=== PATIENT | male | born 1950 | race Caucasian/White ===

== ENCOUNTER → 2017-04-24 08:04 | Outpatient (CLI) | payer MEDICARE, SELFPAY ==
[2017-04-24 10:29] LABS: Hematocrit 55.5 % (40-54); Hemoglobin 18.6 g/dl (13.0-16.5); Mean Corp Hgb Conc 33.5 g/gl (32-36); Mean Corpuscular Hgb 30.6 pg (27.0-32.0); Mean Corpuscular Volume 91.4 fL (80-94); Mean Platelet Vol. 10.3 fl (6.2-12.0); Platelet Count 161 K/mm3 (150-450); RBC Distribution Width SD 42.8 fl (35.1-43.9); Red Blood Count 6.07 M/mm3 (4.6-6.2)
[2017-04-24 10:34] LABS: Scan Indicated on CBC? Y/N NO
[2017-04-24 10:43] LABS: ALB/GLOB Ratio 1.4 RATIO (0.9-2.4); AST(SGOT) 40 U/L (15-37); Alanine Aminotransfer ALT/SGPT 83 U/L (16-61); Albumin, Serum 4.2 g/dL (3.2-5.0); Alkaline Phosphatase 56 U/L (45-117); Anion Gap 10 (5-15); BUN 8 mg/dL (7-18); BUN/Creat Ratio 8.4 RATIO (10-20); Calcium,Total 9.1 mg/dL (8.5-10.1); Chloride 102 mmol/L (98-107); Cholesterol 191 mg/dL (200); Creatinine, Serum 0.96 mg/dL (0.70-1.30); EST Glomerular Filtration Rate 84 mL/min (>60); Est Glom Filt Rate - Afr Amer 102 mL/min (>60); Globulin 3.1 g/dL (2.2-4.2); Glucose 108 mg/dL (74-106); High Density Lipoprotein 55 mg/dL; PSA,Total - Annual Screen 3.13 ng/mL (0.00-4.00); Protein, Total 7.3 g/dL (6.4-8.2); Sodium Level 140 mmol/L (136-145); Triglycerides 68 mg/dL; Very Low Density Lipoprotein 14 mg/dL (5-40)
== END ==
PROVIDERS: Family Provider Family Medicine; PCP Family Medicine; Visit Provider Family Medicine
DX: E34.9 Endocrine disorder, unspecified (principal); Z12.5 Encounter for screening for malignant neoplasm of prostate
CPT/HCPCS: 36415; 80053; 80061; 84153; 84403; 85027; G0103

== ENCOUNTER → 2017-07-16 12:03 | Outpatient (CLI) | payer MEDICARE, SELFPAY ==
[2017-07-16 14:37] LABS: AST(SGOT) 37 U/L (15-37); Alanine Aminotransfer ALT/SGPT 53 U/L (16-61); Albumin, Serum 4.3 g/dL (3.2-5.0); Alkaline Phosphatase 58 U/L (45-117); Bilirubin, Direct 0.22 mg/dL (0.00-0.30); Globulin 2.9 g/dL (2.2-4.2); Protein, Total 7.2 g/dL (6.4-8.2)
== END ==
PROVIDERS: Family Provider Family Medicine; PCP Family Medicine; Visit Provider Family Medicine
DX: R74.0 Nonspecific elevation of levels of transaminase and lactic acid dehydrogenase [LDH] (principal); E34.9 Endocrine disorder, unspecified
CPT/HCPCS: 36415; 80076; 84403

== ENCOUNTER → 2017-12-04 08:23 | Outpatient (CLI) | payer MEDICARE, SELFPAY ==
[2017-12-04 10:48] LABS: ALB/GLOB Ratio 1.2 RATIO (0.9-2.4); AST(SGOT) 29 U/L (15-37); Alanine Aminotransfer ALT/SGPT 55 U/L (16-61); Albumin, Serum 4.2 g/dL (3.2-5.0); Alkaline Phosphatase 51 U/L (45-117); Anion Gap 10 (5-15); BUN 10 mg/dL (7-18); BUN/Creat Ratio 8.9 RATIO (10-20); Calcium,Total 8.7 mg/dL (8.5-10.1); Chloride 100 mmol/L (98-107); Cholesterol 185 mg/dL (200); Creatinine, Serum 1.12 mg/dL (0.70-1.30); EST Glomerular Filtration Rate 70 mL/min (>60); Est Glom Filt Rate - Afr Amer 85 mL/min (>60); Globulin 3.4 g/dL (2.2-4.2); Glucose 104 mg/dL (74-106); High Density Lipoprotein 61 mg/dL; Potassium 4.1 mmol/L (3.5-5.1); Protein, Total 7.6 g/dL (6.4-8.2); Sodium Level 136 mmol/L (136-145); Triglycerides 84 mg/dL; Very Low Density Lipoprotein 17 mg/dL (5-40)
== END ==
PROVIDERS: Family Provider Family Medicine; PCP Family Medicine; Visit Provider Family Medicine
DX: E34.9 Endocrine disorder, unspecified (principal)
CPT/HCPCS: 36415; 80053; 80061; 84403

== ENCOUNTER → 2018-02-24 09:54 | Outpatient (CLI) | payer MEDICARE, SELFPAY ==
[2018-02-24 12:47] LABS: Anion Gap 7 (5-15); BUN 10 mg/dL (7-18); BUN/Creat Ratio 9.2 RATIO (10-20); Calcium,Total 9.2 mg/dL (8.5-10.1); Chloride 99 mmol/L (98-107); Creatinine, Serum 1.09 mg/dL (0.70-1.30); EST Glomerular Filtration Rate 72 mL/min (>60); Est Glom Filt Rate - Afr Amer 87 mL/min (>60); Glucose 107 mg/dL (74-106); Sodium Level 140 mmol/L (136-145)
--- OUTSIDE RECORDS SUMMARY | 2018-04-12 10:02 | XMS RPT_ITS ---
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 criteria. Please note revised GLUCOSE reference range effective 2017. LAB L501.1000 7-18 mg/dL Normal BUN 10 LAB L501.1100 0.70-1.30 mg/dL Normal CREAT,SERUM 1.09 Result Comment: The validity of the calculated GFR AND GFRAA in patients over 70 years has not been determined. Clinical correlation is essential. LAB L501.1110 >60 mL/min Normal EST GFR 72 Result Comment: Non- GFR Calc LAB L501.1115 >60 mL/min Normal EST GFR - AA 87 Result Comment: GFR Calc LAB L501.1300 10-20 RATIO Low BUN/CRE 9.2 LAB L501.2200 8.5-10.1 mg/dL Normal CA 9.2 LAB L501.5300 136-145 mmol/L Normal NA 140 LAB L501.5600 3.5-5.1 mmol/L Normal K 4.0 LAB L501.5900 98-107 mmol/L Normal CL 99 LAB L501.6100 21.0-32.0 mmol/L High CO2 34.0 LAB L501.6200 5-15 Normal GAP 7 Performed By: #### L500.2500 #### [facility] [address] [place], [address] COMPREHENSIVE METABOLIC Collected: 12/04/2017 Status: F Source: [facility] 8:25 AM [facility] REPOSITORY Order Comment: Order Date: 10/08/17 Order Info: [id number] - CMP Order Info: 08933-5 - LIPID TYPE CODE TESTS RESULT OUT OF RANGE REFERENCE UNITS LAB L501.0100 74-106 mg/dL Normal GLU 104 Result Comment: Fasting Glucose result from 100 to 125 mg/dL suggests IMPAIRED HOMEOSTASIS per A.D.A. criteria. Please note revised GLUCOSE reference range effective 2017. LAB L501.1000 7-18 mg/dL Normal BUN 10 LAB L501.1100 0.70-1.30 mg/dL Normal CREAT,SERUM 1.12 Result Comment: The validity of the calculated GFR AND GFRAA in patients over 70 years has not been determined. Clinical correlation is essential. LAB L501.1110 >60 mL/min Normal EST GFR 70 Result Comment: Non- GFR Calc LAB L501.1115 >60 mL/min Normal EST GFR - AA 85 Result Comment: GFR Calc LAB L501.1300 10-20 RATIO Low BUN/CRE 8.9 LAB L501.1500 6.4-8.2 g/dL Normal T PROT 7.6 LAB L501.1800 3.2-5.0 g/dL Normal ALB 4.2 LAB L501.1950 2.2-4.2 g/dL Normal GLOB 3.4 LAB L501.2000 0.9-2.4 RATIO Normal A/G 1.2 LAB L501.2200 8.5-10.1 mg/dL Normal CA 8.7 LAB L501.4100 15-37 U/L Normal AST 29 Result Comment: Slight Hemolysis, Result may be falsely increased. LAB L501.4305 45-117 U/L Normal ALK P 51 LAB L501.4405 16-61 U/L Normal ALT 55 LAB L501.4600 0.20-1.00 mg/dL High T BILI 1.10 LAB L501.5300 136-145 mmol/L Normal NA 136 LAB L501.5600 3.5-5.1 mmol/L Normal K 4.1 Result Comment: Slight Hemolysis, Result may be falsely increased. LAB L501.5900 98-107 mmol/L Normal CL 100 LAB L501.6100 21.0-32.0 mmol/L Normal CO2 26.0 LAB L501.6200 5-15 Normal GAP 10 Performed By: #### L500.4050, L500.4100, L509.3000 #### [facility] [address] [place], [address] LIPID PROFILE Collected: 12/04/2017 Status: F Source: [place] 8:25 AM [facility] REPOSITORY Order Comment: Order Date: 10/08/17 Order Info: [id number] - CMP Order Info: [id number] - LIPID TYPE CODE TESTS RESULT OUT OF RANGE REFERENCE UNITS LAB L501.4900 200 mg/dL Normal CHOL 185 Result Comment: <200 mg/dL Desirable 200-240 mg/dL Borderline >240 mg/dL High Risk LAB L501.5000 mg/dL Normal TRIG 84 Result Comment: The drugs N-Acetylcysteine and Metamizole may falsely depress this assay. Serum Triglycerides Reference Interval Normal <150 mg/dL Borderline high 150 - 199 mg/dL High 200 - 499 mg/dL Very High > or = 500 mg/dL LAB L501.6400 mg/dL Normal HDL 61 Result Comment: The drugs N-Acetylcysteine and Metamizole may falsely depress this assay. Reference Range HDL <40 mg/dL Low HDL Cholesterol HDL >or= 60 mg/dL High HDL Cholesterol LAB L501.6500 0-130 mg/dL Normal LDL 107 LAB L501.6600 5-40 mg/dL Normal VLDL 17 Performed By: #### L500.4050, L500.4100, L509.3000 #### [facility] [address] [facility] [place], [address] TESTOSTERONE, SERUM TOTAL Collected: 12/04/2017 Status: F Source: [place] 8:25 AM [facility] REPOSITORY Order Comment: Order Date: 10/08/17 Order Info: 2986-8 - PRESTON TYPE CODE TESTS RESULT OUT OF REFERENCE UNITS RANGE LAB L509.3000 ng/dL Testosterone Normal 336.43 Result Comment: NORMAL REFERENCE RANGES MALE AGE <50 123.06 - 813.86 ng/dL MALE AGE >50 89.98 - 780.10 ng/dL FEMALE PREMENOPAUSE AGE 21 - 60 9.01 - 47.94 ng/dL FEMALE POSTMENOPAUSE AGE 45 - 89 <7.00 - 45.62 ng/dL REFERENCE RANGE AND METHODOLOGY CHANGED 03/05/2017 Performed By: #### L500.4050, L500.4100, L509.3000 #### [facility] [address] [facility] [place], [address] LIVER PROFILE Collected: 07/16/2017 Status: F Source: [place] 12:04 PM [facility] REPOSITORY Order Comment: Order Date: 05/21/17 Order Info: 0788-1 - LIVER TYPE CODE TESTS RESULT OUT OF RANGE REFERENCE UNITS LAB L501.1500 6.4-8.2 g/dL Normal T PROT 7.2 LAB L501.1800 3.2-5.0 g/dL Normal ALB 4.3 LAB L501.1950 2.2-4.2 g/dL Normal GLOB 2.9 LAB L501.4100 15-37 U/L Normal AST 37 Result Comment: Slight Hemolysis, Result may be falsely increased. LAB L501.4305 45-117 U/L Normal ALK P 58 LAB L501.4405 16-61 U/L Normal ALT 53 LAB L501.4600 0.20-1.00 mg/dL Normal T BILI 1.00 LAB L501.4700 0.00-0.30 mg/dL Normal D BILI 0.22 Performed By: #### L500.3400, L509.3000 #### [facility] [address] [place], [address] TESTOSTERONE, SERUM TOTAL Collected: 07/16/2017 Status: F Source: [place] 12:04 PM [facility] REPOSITORY Order Comment: Order Date: 05/21/17 Order Info: 2986-8 - PRESTON TYPE CODE TESTS RESULT OUT OF REFERENCE UNITS RANGE LAB L509.3000 ng/dL Testosterone Normal 556.53 Result Comment: NORMAL REFERENCE RANGES MALE AGE <50 123.06 - 813.86 ng/dL MALE AGE >50 89.98 - 780.10 ng/dL FEMALE PREMENOPAUSE AGE 21 - 60 9.01 - 47.94 ng/dL FEMALE POSTMENOPAUSE AGE 45 - 89 <7.00 - 45.62 ng/dL REFERENCE RANGE AND METHODOLOGY CHANGED 03/05/2017 Performed By: #### L500.3400, L509.3000 #### [facility] [address] [place], [address] CBC-COMPLETE BLOOD CNT Collected: 04/24/2017 Status: F Source: [place] NO DIFF 8:18 AM [facility] REPOSITORY Order Comment: Order Date: 10/09/16 Order Info: [id number] - CBCCRITICAL VALUE VERIFIED. CALLED TO ASHLEIGH 04/24/17 1033 Savi Fish. RESULTS READ BACK BY ASHLEIGH . TYPE CODE TESTS RESULT OUT OF RANGE REFERENCE UNITS LAB L100.1000 4.4-11.0 K/mm3 Normal WBC 7.0 LAB L100.1200 4.6-6.2 M/mm3 Normal RBC 6.07 LAB L100.1300 13.0-16.5 g/dl High alert HGB 18.6 LAB L100.1400 40-54 % High HCT 55.5 LAB L100.1500 80-94 fL Normal MCV 91.4 LAB L100.1600 27.0-32.0 pg Normal MCH 30.6 LAB L100.1700 32-36 g/gl Normal MCHC 33.5 LAB L100.1810 11.6-14.6 % Normal RDW CV 13.0 LAB L100.1820 35.1-43.9 fl Normal RDW SD 42.8 LAB L100.1900 150-450 K/mm3 Normal PLT 161 LAB L100.2000 6.2-12.0 fl Normal MPV 10.3 Performed By: #### L100.0500, L500.4050, L500.4100, L501.9910, L509.3000 #### [facility] [address] [place], [address] COMPREHENSIVE METABOLIC Collected: 04/24/2017 Status: F [facility] REPOSITORY Order Comment: Order Date: 10/09/16 Order Info: [id number] - CMP Order Info: [id number] - LIPID Order Info: 2857-1 - PSA TYPE CODE TESTS RESULT OUT OF RANGE REFERENCE UNITS LAB L501.0100 74-106 mg/dL High GLU 108 Result Comment: Please note revised GLUCOSE reference range effective 2017. LAB L501.1000 7-18 mg/dL Normal BUN 8 LAB L501.1100 0.70-1.30 mg/dL Normal CREAT,SERUM 0.96 Result Comment: The validity of the calculated GFR AND GFRAA in patients over 70 years has not been determined. Clinical correlation is essential. LAB L501.1110 >60 mL/min Normal EST GFR 84 Result Comment: Non- GFR Calc LAB L501.1115 >60 mL/min Normal EST GFR - AA 102 Result Comment: GFR Calc LAB L501.1300 10-20 RATIO Low BUN/CRE 8.4 LAB L501.1500 6.4-8.2 g/dL Normal T PROT 7.3 LAB L501.1800 3.2-5.0 g/dL Normal ALB 4.2 LAB L501.1950 2.2-4.2 g/dL Normal GLOB 3.1 LAB L501.2000 0.9-2.4 RATIO Normal A/G 1.4 LAB L501.2200 8.5-10.1 mg/dL Normal CA 9.1 LAB L501.4100 15-37 U/L High AST 40 LAB L501.4305 45-117 U/L Normal ALK P 56 LAB L501.4405 16-61 U/L High ALT 83 Result Comment: Please note revised ALT reference range effective 2017. LAB L501.4600 0.20-1.00 mg/dL High T BILI 1.10 LAB L501.5300 136-145 mmol/L Normal NA 140 LAB L501.5600 3.5-5.1 mmol/L Normal K 4.0 LAB L501.5900 98-107 mmol/L Normal CL 102 LAB L501.6100 21.0-32.0 mmol/L Normal CO2 28.0 LAB L501.6200 5-15 Normal GAP 10 Performed By: #### L100.0500, L500.4050, L500.4100, L501.9910, L509.3000 #### [facility] [address] [place], [address] LIPID PROFILE Collected: 04/24/2017 Status: F Source: [place] 8:18 AM [facility] REPOSITORY Order Comment: Order Date: 10/09/16 Order Info: [id number] - CMP Order Info: [id number] - LIPID Order Info: 2857-1 - PSA TYPE CODE TESTS RESULT OUT OF RANGE REFERENCE UNITS LAB L501.4900 200 mg/dL Normal CHOL 191 Result Comment: <200 mg/dL Desirable 200-240 mg/dL Borderline >240 mg/dL High Risk LAB L501.5000 mg/dL Normal TRIG 68 Result Comment: The drugs N-Acetylcysteine and Metamizole may falsely depress this assay. Serum Triglycerides Reference Interval Normal <150 mg/dL Borderline high 150 - 199 mg/dL High 200 - 499 mg/dL Very High > or = 500 mg/dL LAB L501.6400 mg/dL Normal HDL 55 Result Comment: The drugs N-Acetylcysteine and Metamizole may falsely depress this assay. Reference Range HDL <40 mg/dL Low HDL Cholesterol HDL >or= 60 mg/dL High HDL Cholesterol LAB L501.6500 0-130 mg/dL Normal LDL 122 LAB L501.6600 5-40 mg/dL Normal VLDL 14 Performed By: #### L100.0500, L500.4050, L500.4100, L501.9910, L509.3000 #### [facility] [address] [place], [place], [address] PSA,TOTAL - ANNUAL Collected: 04/24/2017 Status: F Source: [place] SCREEN 8:18 AM [facility] REPOSITORY Order Comment: Order Date: 10/09/16 Order Info: [id number] - CMP Order Info: [id number] - LIPID Order Info: 2857-1 - PSA TYPE CODE TESTS RESULT OUT OF RANGE REFERENCE UNITS LAB L501.9910 0.00-4.00 ng/mL Normal PSA,TOT 3.13 SCREEN Result Comment: This test was performed using the TPSA assay method for the Pol[employer] chemistry system. Values obtained with different assay methods cannot be used interchangably. When changing PSA assays in the course of monitoring a patient, additional sequential testing should be carried out to confirm baseline values. Performed By: #### L100.0500, L500.4050, L500.4100, L501.9910, L509.3000 #### [facility] [address] [place], [address] TESTOSTERONE, SERUM TOTAL Collected: 04/24/2017 Status: F Source: [place] 8:18 AM [facility] REPOSITORY Order Comment: Order Date: 10/09/16 Order Info: 2986-8 - PRESTON TYPE CODE TESTS RESULT OUT OF REFERENCE UNITS RANGE LAB L509.3000 ng/dL Testosterone Normal 979.86 Result Comment: NORMAL REFERENCE RANGES MALE AGE <50 123.06 - 813.86 ng/dL MALE AGE >50 89.98 - 780.10 ng/dL FEMALE PREMENOPAUSE AGE 21 - 60 9.01 - 47.94 ng/dL FEMALE POSTMENOPAUSE AGE 45 - 89 <7.00 - 45.62 ng/dL REFERENCE RANGE AND METHODOLOGY CHANGED 03/05/2017 Performed By: #### L100.0500, L500.4050, L500.4100, L501.9910, L509.3000 #### [facility] [address] [place], [place], [address] ALLERGIES ALLERGIES No Allergies Records FoundENCOUNTERS ENCOUNTERS ADMIT/DISCHARGE ACCOUNT ADMITTING ENCOUNTER LOCATION SOURCE NUMBER CLASS 02/24/2018 [id number] Ambulatory [place] 5 [facility] ing:MFPLAB Repository 12/04/2017 [id number] Ambulatory [facility] 8 [facility] ing:MFPLAB Repository 07/16/[id number] ing:MFPLAB Repository 04/24/[id number] ing:MTLAB Repository PAYERS PAYERS ENCOUNTER GUARANTOR PAYER SUBSCRIBER SOURCE 02/24/2018 CELY W Primary CELY W [place] [id number] Insurance:[employer] CARE EIKLEBERRYDOB: Community [address], MEDICAREPolicy [id number] [address]Ccn: Number: Repository [id number] (HP) Date:9590-29-28[address] [place] [address] 66705QL: 02/24/2018 Secondary NOT GIVENUNK [place] Insurance:SELF PAY [facility] Number: Effective Repository Date:2018-02-24 12/04/2017 CELY W Primary CELY W [place] [id number] Insurance:[employer] CARE EIKLEBERRYDOB: Community [address], MEDICAREPolicy [id number] [facility] [place] [address]Cte: Number: Repository [id number] (HP) Date:3611-53-[address] [place] [address] 27286DT: 12/04/2017 Secondary NOT GIVENUNK [place] Insurance:SELF PAY [facility] Number: Effective Repository Date:2017-12-04 07/16/2017 CELY W Primary CELY W [place] [id number] Insurance:[employer] CARE EIKLEBERRYDOB: Community [address], MEDICAREPolicy [id number] [facility] Medical Center [address]Gnb: Number: Repository [id number] (HP) Date:7990-79-91[address] [place] [address]15[address]SP: 07/16/2017 Secondary NOT GIVENUNK [place] Insurance:SELF PAY [facility] Number: Effective Repository Date:2017-07-16 04/24/2017 CELY W Primary CELY W [place] [id number] Insurance:[facility]: [facility] WILL KAREN MEDICAREPolrobina [id number] [facility] Medical Center [address]Jkw: Number: Repository [id number] (HP) Date:8082-99-12[address] [place] [address] 57[address]RC: 04/24/2017 Secondary NOT GIVENUNK [place] Insurance:SELF PAY [facility] Number: Effective Repository Date:2017-04-24
== END ==
PROVIDERS: Family Provider Family Medicine; PCP Family Medicine; Visit Provider Family Medicine
DX: I10 Essential (primary) hypertension (principal)
CPT/HCPCS: 36415; 80048

== ENCOUNTER → 2018-04-22 08:07 | Outpatient (CLI) | payer MEDICARE, SELFPAY ==
[2018-04-22 11:11] LABS: ALB/GLOB Ratio 1.6 RATIO (0.9-2.4); AST(SGOT) 33 U/L (15-37); Alanine Aminotransfer ALT/SGPT 55 U/L (16-61); Albumin, Serum 4.4 g/dL (3.2-5.0); Alkaline Phosphatase 53 U/L (45-117); Anion Gap 10 (5-15); BUN 8 mg/dL (7-18); BUN/Creat Ratio 7.8 RATIO (10-20); Calcium,Total 8.8 mg/dL (8.5-10.1); Chloride 101 mmol/L (98-107); Cholesterol 187 mg/dL (200); Creatinine, Serum 1.03 mg/dL (0.70-1.30); EST Glomerular Filtration Rate 77 mL/min (>60); Est Glom Filt Rate - Afr Amer 93 mL/min (>60); Globulin 2.7 g/dL (2.2-4.2); Glucose 106 mg/dL (74-106); High Density Lipoprotein 49 mg/dL; PSA,Total - Annual Screen 2.96 ng/mL (0.00-4.00); Protein, Total 7.1 g/dL (6.4-8.2); Sodium Level 140 mmol/L (136-145); Triglycerides 94 mg/dL; Very Low Density Lipoprotein 19 mg/dL (5-40)
== END ==
PROVIDERS: Family Provider Family Medicine; PCP Family Medicine; Visit Provider Family Medicine
DX: I10 Essential (primary) hypertension (principal); E34.9 Endocrine disorder, unspecified; Z12.5 Encounter for screening for malignant neoplasm of prostate
CPT/HCPCS: 36415; 80053; 80061; 84153; 84403; G0103

== ENCOUNTER → 2018-10-02 | Outpatient (CLI) | payer MEDICARE, SELFPAY ==
[2018-10-02 10:17] LABS: ALB/GLOB Ratio 1.6 RATIO (0.9-2.4); AST(SGOT) 25 U/L (15-37); Alanine Aminotransfer ALT/SGPT 41 U/L (16-61); Albumin, Serum 4.1 g/dL (3.2-5.0); Alkaline Phosphatase 53 U/L (45-117); Anion Gap 8 (5-15); BUN 9 mg/dL (7-18); BUN/Creat Ratio 10.1 RATIO (10-20); Calcium,Total 9.2 mg/dL (8.5-10.1); Chloride 100 mmol/L (98-107); Cholesterol 175 mg/dL (200); Creatinine, Serum 0.89 mg/dL (0.70-1.30); EST Glomerular Filtration Rate 91 mL/min (>60); Est Glom Filt Rate - Afr Amer 110 mL/min (>60); Globulin 2.6 g/dL (2.2-4.2); Glucose 94 mg/dL (74-106); High Density Lipoprotein 52 mg/dL; Potassium 3.8 mmol/L (3.5-5.1); Protein, Total 6.7 g/dL (6.4-8.2); Sodium Level 140 mmol/L (136-145); Triglycerides 87 mg/dL; Very Low Density Lipoprotein 17 mg/dL (5-40)
== END | disposition home or self-care (01) ==
LOC: MFPLAB 08:05
PROVIDERS: Family Provider Family Medicine; PCP Family Medicine; Referring Provider Family Medicine; Visit Provider Family Medicine
DX: Z00.00 Encounter for general adult medical examination without abnormal findings (principal); E34.9 Endocrine disorder, unspecified
CPT/HCPCS: 36415; 80053; 80061; 84403

== ENCOUNTER → 2019-07-16 | Outpatient (CLI) | payer MEDICARE, SELFPAY ==
[2019-07-16 10:42] LABS: ALB/GLOB Ratio 1.4 RATIO (0.9-2.4); AST(SGOT) 18 U/L (15-37); Alanine Aminotransfer ALT/SGPT 31 U/L (16-61); Albumin, Serum 4.2 g/dL (3.2-5.0); Alkaline Phosphatase 47 U/L (45-117); Anion Gap 8 (5-15); BUN 10 mg/dL (7-18); BUN/Creat Ratio 10.4 RATIO (10-20); Calcium,Total 8.9 mg/dL (8.5-10.1); Chloride 102 mmol/L (98-107); Cholesterol 175 mg/dL (200); Creatinine, Serum 0.96 mg/dL (0.70-1.30); EST Glomerular Filtration Rate 83 mL/min (>60); Est Glom Filt Rate - Afr Amer 100 mL/min (>60); Glucose 101 mg/dL (74-106); High Density Lipoprotein 60 mg/dL; PSA,Total- Diagnostic 2.58 ng/mL (0.0-4.0); Potassium 3.6 mmol/L (3.5-5.1); Protein, Total 7.2 g/dL (6.4-8.2); Sodium Level 138 mmol/L (136-145); Triglycerides 73 mg/dL; Uric Acid 8.6 mg/dL (3.5-7.2); Very Low Density Lipoprotein 15 mg/dL (5-40)
== END | disposition home or self-care (01) ==
PROVIDERS: PCP Family Medicine; Visit Provider Family Medicine
DX: E34.9 Endocrine disorder, unspecified (principal); M10.9 Gout, unspecified; I10 Essential (primary) hypertension; N40.0 Benign prostatic hyperplasia without lower urinary tract symptoms
CPT/HCPCS: 36415; 80053; 80061; 84153; 84403; 84550

== ENCOUNTER → 2019-07-28 | Outpatient (CLI) | payer MEDICARE, SELFPAY ==
[2019-07-28 16:32] LABS: Uric Acid 7.2 mg/dL (3.5-7.2)
== END | disposition home or self-care (01) ==
LOC: MFPLAB 13:52
PROVIDERS: PCP Family Medicine; Visit Provider Family Medicine
DX: M10.9 Gout, unspecified (principal)
CPT/HCPCS: 36415; 84550

== ENCOUNTER → 2019-08-25 | Outpatient (CLI) | payer MEDICARE, SELFPAY ==
[2019-08-25 18:29] LABS: Uric Acid 5.5 mg/dL (3.5-7.2)
== END | disposition home or self-care (01) ==
LOC: MFPLAB 13:50
PROVIDERS: PCP Family Medicine; Referring Provider Family Medicine; Visit Provider Family Medicine
DX: M10.9 Gout, unspecified (principal)
CPT/HCPCS: 36415; 84550

== ENCOUNTER → 2019-09-15 | Outpatient (CLI) | payer MEDICARE, SELFPAY ==
--- NOTE | 2019-09-15 12:44 | RAD_ITS ---
STUDY: X-RAY - RIGHT WRIST REASON FOR EXAM: Male, 69 years old. PAIN AND LOTS OF SWELLING IN RIGHT WRIST. NO KNOWN INJURY. PATIENT STATES BROKE RIGHT WRIST/RIGHT FOREARM 2 TIMES A TEENAGER. TECHNIQUE: 3 view(s) of the wrist were obtained. COMPARISON: None. FINDINGS: Old avulsion fracture of the ulnar styloid. There is degenerative arthrosis of the radiocarpal articulation. There is degenerative arthrosis of the distal radioulnar articulation. There is evidence of a dorsal subluxation of the distal radial ulnar joint most likely secondary to old injury. Normal carpal bones. Normal carpal articulations. Normal carpometacarpal articulation of the thumb. Normal second through fifth carpometacarpal articulations. Normal visualized metacarpal bones. The soft tissue structures are unremarkable. RAD/Wrist min 3 Views IMPRESSION: Degenerative changes at the level of the wrist joint with dorsal subluxation of the distal radial ulnar joint and old avulsion fracture of the ulnar styloid. Electronically Signed: Leander Cordova, at 13:35 EDT , Service support ,
== END | disposition home or self-care (01) ==
LOC: MTRAD 12:39
PROVIDERS: PCP Family Medicine; Referring Provider Family Medicine; Visit Provider Family Medicine
DX: M25.431 Effusion, right wrist (principal)
CPT/HCPCS: 73110

== ENCOUNTER → 2019-11-01 | Outpatient (CLI) | payer MEDICARE, SELFPAY ==
[2019-11-01 18:08] LABS: Absolute Lymphocyte Count 0.71 X10^3/uL (0.83-4.51); Absolute Neutrophil Count 9.1 X10^3/uL (2.0-7.7); Basophil# 0.01 X10^3/uL; Basophil% 0.1 % (0-1); Lymphocyte # 0.71 X10^3/ul (4.0); Lymphocyte % 7.1 % (19-41); Mean Corp Hgb Conc 32.7 g/dL (32-36); Mean Corpuscular Volume 91.7 fL (80-94); Mean Platelet Vol. 10.1 fl (6.2-12.0); Monocyte# 0.12 X10^3/uL; Monocyte% 1.2 % (0-10); NRBC Flagged by Analyzer 0 % (0-5); Neutrophil # 9.12 X10^3/uL (2.7-7.7); Platelet Count 205 K/mm3 (150-450); RBC Distribution Width CV 12.9 % (11.6-14.6); RBC Distribution Width SD 43.8 fl (35.1-43.9); Red Blood Count 5.67 M/mm3 (4.6-6.2)
[2019-11-01 18:22] LABS: Anion Gap 7 (5-15); BUN 13 mg/dL (7-18); BUN/Creat Ratio 12.9 RATIO (10-20); Chloride 105 mmol/L (98-107); Creatinine, Serum 1.01 mg/dL (0.70-1.30); EST Glomerular Filtration Rate 78 mL/min (>60); Est Glom Filt Rate - Afr Amer 95 mL/min (>60); Glucose 169 mg/dL (74-106); Potassium 3.9 mmol/L (3.5-5.1); Sodium Level 138 mmol/L (136-145)
== END | disposition home or self-care (01) ==
LOC: MFPLAB 14:33
PROVIDERS: Family Medicine; PCP Family Medicine; Referring Provider Family Medicine; Visit Provider Family Medicine
DX: M10.9 Gout, unspecified (principal)
CPT/HCPCS: 36415; 80048; 84550; 85025

== ENCOUNTER → 2020-01-31 16:28 | Outpatient (CLI) | payer MEDICARE, SELFPAY | PROVIDERS: PCP Family Medicine; Visit Provider Family Medicine | DX: Z20.828 Contact with and (suspected) exposure to other viral communicable diseases (principal) | CPT/HCPCS: 87635; U0003 ==

== ENCOUNTER → 2020-02-04 08:10 | Outpatient (CLI) | payer MEDICARE, SELFPAY ==
[2020-02-04 10:34] LABS: Hemoglobin A1c 5.2 % (3.8-5.6)
[2020-02-04 10:49] LABS: ALB/GLOB Ratio 1.7 RATIO (0.9-2.4); AST(SGOT) 15 U/L (15-37); Alanine Aminotransfer ALT/SGPT 31 U/L (16-61); Albumin, Serum 4.3 g/dL (3.2-5.0); Alkaline Phosphatase 45 U/L (45-117); Anion Gap 3 (5-15); BUN 15 mg/dL (7-18); BUN/Creat Ratio 14.6 RATIO (10-20); Calcium,Total 8.8 mg/dL (8.5-10.1); Chloride 103 mmol/L (98-107); Cholesterol 161 mg/dL (200); Creatinine, Serum 1.03 mg/dL (0.70-1.30); EST Glomerular Filtration Rate 76 mL/min (>60); Est Glom Filt Rate - Afr Amer 92 mL/min (>60); Globulin 2.6 g/dL (2.2-4.2); Glucose 102 mg/dL (74-106); High Density Lipoprotein 60 mg/dL; Potassium 3.9 mmol/L (3.5-5.1); Protein, Total 6.9 g/dL (6.4-8.2); Sodium Level 137 mmol/L (136-145); Triglycerides 57 mg/dL; Very Low Density Lipoprotein 11 mg/dL (5-40)
== END ==
PROVIDERS: PCP Family Medicine; Visit Provider Family Medicine
DX: I10 Essential (primary) hypertension (principal); R73.02 Impaired glucose tolerance (oral)
CPT/HCPCS: 36415; 80053; 80061; 83036

== ENCOUNTER → 2020-05-17 14:32 | Outpatient (CLI) | payer MEDICARE, SELFPAY ==
[2020-05-17 18:24] LABS: ALB/GLOB Ratio 1.5 RATIO (0.9-2.4); AST(SGOT) 25 U/L (15-37); Alanine Aminotransfer ALT/SGPT 46 U/L (16-61); Albumin, Serum 4.1 g/dL (3.2-5.0); Alkaline Phosphatase 51 U/L (45-117); Anion Gap 7 (5-15); BUN 18 mg/dL (7-18); BUN/Creat Ratio 21.6 RATIO (10-20); Calcium,Total 8.9 mg/dL (8.5-10.1); Chloride 104 mmol/L (98-107); Creatinine, Serum 0.84 mg/dL (0.70-1.30); EST Glomerular Filtration Rate 97 mL/min (>60); Est Glom Filt Rate - Afr Amer 118 mL/min (>60); Globulin 2.7 g/dL (2.2-4.2); Glucose 112 mg/dL (74-106); PSA,Total - Annual Screen 1.32 ng/mL (0.00-4.00); Potassium 3.6 mmol/L (3.5-5.1); Protein, Total 6.8 g/dL (6.4-8.2); Sodium Level 138 mmol/L (136-145); Uric Acid 4.8 mg/dL (3.5-7.2)
== END ==
PROVIDERS: PCP Family Medicine; Referring Provider Family Medicine; Visit Provider Family Medicine
DX: E34.9 Endocrine disorder, unspecified (principal); M10.9 Gout, unspecified; I10 Essential (primary) hypertension; Z12.5 Encounter for screening for malignant neoplasm of prostate
CPT/HCPCS: 36415; 80053; 84153; 84403; 84550; G0103

== ENCOUNTER → 2020-05-31 14:14 | Outpatient (CLI) | payer MEDICARE, SELFPAY | PROVIDERS: PCP Family Medicine; Referring Provider Family Medicine; Visit Provider Family Medicine | DX: E34.9 Endocrine disorder, unspecified (principal) | CPT/HCPCS: 36415; 84403 ==

== ENCOUNTER → 2020-08-17 14:17 | Outpatient (CLI) | payer MEDICARE, SELFPAY | PROVIDERS: PCP Family Medicine; Referring Provider Family Medicine; Visit Provider Family Medicine | DX: U07.1 COVID-19 (principal) | CPT/HCPCS: 36415; 86769 ==

== ENCOUNTER → 2021-01-01 08:21 | Outpatient (CLI) | payer MEDICARE, SELFPAY ==
[2021-01-01 10:40] LABS: ALB/GLOB Ratio 1.4 RATIO (0.9-2.4); AST(SGOT) 14 U/L (15-37); Alanine Aminotransfer ALT/SGPT 26 U/L (16-61); Alkaline Phosphatase 37 U/L (45-117); Anion Gap 7 (5-15); BUN 11 mg/dL (7-18); BUN/Creat Ratio 11.9 RATIO (10-20); Calcium,Total 9.2 mg/dL (8.5-10.1); Chloride 102 mmol/L (98-107); Creatinine, Serum 0.92 mg/dL (0.70-1.30); EST Glomerular Filtration Rate 86 mL/min (>60); Est Glom Filt Rate - Afr Amer 104 mL/min (>60); Globulin 2.9 g/dL (2.2-4.2); Glucose 102 mg/dL (74-106); Potassium 4.1 mmol/L (3.5-5.1); Protein, Total 6.9 g/dL (6.4-8.2); Sodium Level 138 mmol/L (136-145)
== END ==
PROVIDERS: PCP Family Medicine; Visit Provider Family Medicine
DX: E34.9 Endocrine disorder, unspecified (principal)
CPT/HCPCS: 36415; 80053; 84403

== ENCOUNTER → 2021-07-31 | Outpatient (CLI) | payer MEDICARE, SELFPAY ==
[2021-07-31 09:57] LABS: Hematocrit 54.7 % (40-54); Hemoglobin 17.7 g/dL (13.0-16.5); Mean Corp Hgb Conc 32.4 g/dL (32-36); Mean Corpuscular Hgb 28.4 pg (27.0-32.0); Mean Corpuscular Volume 87.7 fL (80-94); Mean Platelet Vol. 10.2 fl (6.2-12.0); Platelet Count 179 K/mm3 (150-450); RBC Distribution Width CV 13.6 % (11.6-14.6); RBC Distribution Width SD 44.2 fl (35.1-43.9); Red Blood Count 6.24 M/mm3 (4.6-6.2); White Blood Count 6.8 K/mm3 (4.4-11.0)
[2021-07-31 10:10] LABS: ALB/GLOB Ratio 1.4 RATIO (0.9-2.4); AST(SGOT) 12 U/L (15-37); Alanine Aminotransfer ALT/SGPT 22 U/L (16-61); Albumin, Serum 3.9 g/dL (3.2-5.0); Alkaline Phosphatase 35 U/L (45-117); Anion Gap 5 (5-15); BUN 13 mg/dL (7-18); Calcium,Total 8.8 mg/dL (8.5-10.1); Chloride 106 mmol/L (98-107); Cholesterol 147 mg/dL (200); EST Glomerular Filtration Rate 79 mL/min (>60); Est Glom Filt Rate - Afr Amer 95 mL/min (>60); Globulin 2.7 g/dL (2.2-4.2); Glucose 105 mg/dL (74-106); High Density Lipoprotein 43 mg/dL; Protein, Total 6.6 g/dL (6.4-8.2); Sodium Level 140 mmol/L (136-145); Triglycerides 51 mg/dL; Uric Acid 6.3 mg/dL (3.5-7.2); Very Low Density Lipoprotein 10 mg/dL (5-40)
== END | disposition home or self-care (01) ==
LOC: MFPLAB 08:53
PROVIDERS: PCP Family Medicine; Visit Provider Family Medicine
DX: E34.9 Endocrine disorder, unspecified (principal); I10 Essential (primary) hypertension; N40.0 Benign prostatic hyperplasia without lower urinary tract symptoms; M10.9 Gout, unspecified
CPT/HCPCS: 36415; 80053; 80061; 84153; 84403; 84550; 85027

== ENCOUNTER → 2022-04-05 | Outpatient (CLI) | payer MEDICARE, SELFPAY ==
[2022-04-05 10:20] LABS: Absolute Lymphocyte Count 1.52 X10^3/uL (0.83-4.51); Absolute Neutrophil Count 4.8 X10^3/uL (2.0-7.7); Basophil# 0.03 X10^3/uL; Basophil% 0.4 % (0-1); Eosinophils% 1.4 % (0-5); Hematocrit 54.7 % (40-54); Hemoglobin 17.7 g/dL (13.0-16.5); Lymphocyte # 1.52 X10^3/ul (0.83-4.51); Lymphocyte % 21.8 % (19-41); Mean Corp Hgb Conc 32.4 g/dL (32-36); Mean Corpuscular Hgb 28.3 pg (27.0-32.0); Mean Corpuscular Volume 87.4 fL (80-94); Mean Platelet Vol. 9.8 fl (6.2-12.0); Monocyte# 0.52 X10^3/uL; Monocyte% 7.5 % (0-10); NRBC Flagged by Analyzer 0 % (0-5); Neutrophil # 4.77 X10^3/uL (2.7-7.7); Neutrophil % 68.5 % (47-70); Platelet Count 181 K/mm3 (150-450); RBC Distribution Width CV 13.7 % (11.6-14.6); RBC Distribution Width SD 43.6 fl (35.1-43.9); Red Blood Count 6.26 M/mm3 (4.6-6.2)
[2022-04-05 11:02] LABS: ALB/GLOB Ratio 1.7 RATIO (0.9-2.4); AST(SGOT) 15 U/L (15-37); Alanine Aminotransfer ALT/SGPT 31 U/L (16-61); Albumin, Serum 4.3 g/dL (3.2-5.0); Alkaline Phosphatase 38 U/L (45-117); Anion Gap 7 (5-15); BUN 13 mg/dL (7-18); BUN/Creat Ratio 15.8 RATIO (10-20); Chloride 103 mmol/L (98-107); Creatinine, Serum 0.82 mg/dL (0.70-1.30); EST Glomerular Filtration Rate 98 mL/min (>60); Est Glom Filt Rate - Afr Amer 119 mL/min (>60); Globulin 2.5 g/dL (2.2-4.2); Glucose 103 mg/dL (74-106); Protein, Total 6.8 g/dL (6.4-8.2); Sodium Level 139 mmol/L (136-145)
[2022-04-13 13:24] LABS: Erythropoietin 7.9 mIU/mL (2.6-18.5)
== END | disposition home or self-care (01) ==
LOC: MFPLAB 08:32
PROVIDERS: PCP Family Medicine; Referring Provider Family Medicine; Visit Provider Family Medicine
DX: I10 Essential (primary) hypertension (principal); E34.9 Endocrine disorder, unspecified; R71.8 Other abnormality of red blood cells
CPT/HCPCS: 36415; 80053; 81270; 82668; 84403; 85025

== ENCOUNTER → 2022-05-10 | Outpatient (CLI) | payer MEDICARE, SELFPAY ==
[2022-05-10 10:08] LABS: Absolute Lymphocyte Count 1.21 X10^3/uL (0.83-4.51); Absolute Neutrophil Count 3.8 X10^3/uL (2.0-7.7); Basophil# 0.01 X10^3/uL; Basophil% 0.2 % (0-1); Eosinophil# 0.14 X10^3/uL; Eosinophils% 2.5 % (0-5); Hematocrit 53.9 % (40-54); Lymphocyte # 1.21 X10^3/ul (0.83-4.51); Lymphocyte % 21.5 % (19-41); Mean Corp Hgb Conc 31.5 g/dL (32-36); Mean Corpuscular Hgb 27.7 pg (27.0-32.0); Mean Corpuscular Volume 87.9 fL (80-94); Mean Platelet Vol. 10.8 fl (6.2-12.0); Monocyte# 0.49 X10^3/uL; Monocyte% 8.7 % (0-10); NRBC Flagged by Analyzer 0 % (0-5); Neutrophil # 3.79 X10^3/uL (2.7-7.7); Neutrophil % 67.1 % (47-70); Platelet Count 152 K/mm3 (150-450); RBC Distribution Width CV 13.8 % (11.6-14.6); RBC Distribution Width SD 44.6 fl (35.1-43.9); Red Blood Count 6.13 M/mm3 (4.6-6.2); White Blood Count 5.6 K/mm3 (4.4-11.0)
== END | disposition home or self-care (01) ==
LOC: MFPLAB 08:42
PROVIDERS: PCP Family Medicine; Referring Provider Family Medicine; Visit Provider Family Medicine
DX: R71.8 Other abnormality of red blood cells (principal)
CPT/HCPCS: 36415; 81270; 85025

== ENCOUNTER → 2022-07-06 | Outpatient (CLI) | payer MEDICARE, SELFPAY ==
[2022-07-06 07:55] LABS: Absolute Lymphocyte Count 1.69 X10^3/uL (0.83-4.51); Basophil# 0.02 X10^3/uL; Basophil% 0.3 % (0-1); Eosinophils% 1.6 % (0-5); Hematocrit 54.2 % (40-54); Hemoglobin 17.4 g/dL (13.0-16.5); Lymphocyte # 1.69 X10^3/ul (0.83-4.51); Lymphocyte % 26.7 % (19-41); Mean Corp Hgb Conc 32.1 g/dL (32-36); Mean Corpuscular Hgb 28.4 pg (27.0-32.0); Mean Corpuscular Volume 88.6 fL (80-94); Mean Platelet Vol. 10.3 fl (6.2-12.0); Monocyte# 0.56 X10^3/uL; Monocyte% 8.8 % (0-10); NRBC Flagged by Analyzer 0 % (0-5); Neutrophil # 3.95 X10^3/uL (2.7-7.7); Neutrophil % 62.3 % (47-70); Platelet Count 166 K/mm3 (150-450); RBC Distribution Width CV 13.8 % (11.6-14.6); RBC Distribution Width SD 44.6 fl (35.1-43.9); Red Blood Count 6.12 M/mm3 (4.6-6.2); White Blood Count 6.3 K/mm3 (4.4-11.0)
[2022-07-06 08:25] LABS: ALB/GLOB Ratio 1.6 RATIO (0.9-2.4); AST(SGOT) 16 U/L (15-37); Alanine Aminotransfer ALT/SGPT 29 U/L (16-61); Albumin, Serum 4.2 g/dL (3.2-5.0); Alkaline Phosphatase 34 U/L (45-117); Anion Gap 3 (5-15); BUN 15 mg/dL (7-18); BUN/Creat Ratio 16.2 RATIO (10-20); Chloride 104 mmol/L (98-107); Cholesterol 142 mg/dL (200); Creatinine, Serum 0.92 mg/dL (0.70-1.30); EST Glomerular Filtration Rate 86 mL/min (>60); Est Glom Filt Rate - Afr Amer 104 mL/min (>60); Globulin 2.6 g/dL (2.2-4.2); Glucose 115 mg/dL (74-106); High Density Lipoprotein 46 mg/dL; PSA,Total - Annual Screen 3.35 ng/mL (0.00-4.00); Potassium 4.2 mmol/L (3.5-5.1); Protein, Total 6.8 g/dL (6.4-8.2); Sodium Level 136 mmol/L (136-145); Triglycerides 54 mg/dL; Very Low Density Lipoprotein 11 mg/dL (5-40)
== END | disposition home or self-care (01) ==
LOC: LAB 07:18
PROVIDERS: PCP Family Medicine; Visit Provider Family Medicine
DX: R71.8 Other abnormality of red blood cells (principal); I10 Essential (primary) hypertension; E34.9 Endocrine disorder, unspecified; Z12.5 Encounter for screening for malignant neoplasm of prostate
CPT/HCPCS: 36415; 80053; 80061; 84153; 84403; 85025; G0103

== ENCOUNTER → 2022-08-02 | Outpatient (CLI) | payer MEDICARE, SELFPAY ==
[2022-08-02 15:21] LABS: Absolute Lymphocyte Count 1.49 X10^3/uL (0.83-4.51); Absolute Neutrophil Count 4.6 X10^3/uL (2.0-7.7); Basophil# 0.03 X10^3/uL; Basophil% 0.4 % (0-1); Eosinophil# 0.13 X10^3/uL; Eosinophils% 1.9 % (0-5); Hematocrit 52.3 % (40-54); Hemoglobin 16.8 g/dL (13.0-16.5); Lymphocyte # 1.49 X10^3/ul (0.83-4.51); Lymphocyte % 21.8 % (19-41); Mean Corp Hgb Conc 32.1 g/dL (32-36); Mean Corpuscular Hgb 28.3 pg (27.0-32.0); Mean Platelet Vol. 10.7 fl (6.2-12.0); Monocyte# 0.56 X10^3/uL; Monocyte% 8.2 % (0-10); NRBC Flagged by Analyzer 0 % (0-5); Neutrophil # 4.61 X10^3/uL (2.7-7.7); Neutrophil % 67.3 % (47-70); Platelet Count 198 K/mm3 (150-450); RBC Distribution Width CV 13.6 % (11.6-14.6); RBC Distribution Width SD 43.8 fl (35.1-43.9); Red Blood Count 5.94 M/mm3 (4.6-6.2); White Blood Count 6.9 K/mm3 (4.4-11.0)
== END | disposition home or self-care (01) ==
LOC: MFPLAB 12:10
PROVIDERS: PCP Family Medicine; Visit Provider Family Medicine
DX: R71.8 Other abnormality of red blood cells (principal)
CPT/HCPCS: 36415; 85025

== ENCOUNTER → 2022-10-01 | Outpatient (CLI) | payer MEDICARE, SELFPAY ==
[2022-10-01 15:15] LABS: Absolute Lymphocyte Count 1.41 X10^3/uL (0.83-4.51); Absolute Neutrophil Count 5.6 X10^3/uL (2.0-7.7); Basophil# 0.03 X10^3/uL; Basophil% 0.4 % (0-1); Eosinophil# 0.17 X10^3/uL; Eosinophils% 2.2 % (0-5); Hematocrit 53.1 % (40-54); Hemoglobin 16.8 g/dL (13.0-16.5); Lymphocyte # 1.41 X10^3/ul (0.83-4.51); Lymphocyte % 18.3 % (19-41); Mean Corp Hgb Conc 31.6 g/dL (32-36); Mean Corpuscular Hgb 27.9 pg (27.0-32.0); Mean Corpuscular Volume 88.2 fL (80-94); Monocyte# 0.49 X10^3/uL; Monocyte% 6.4 % (0-10); NRBC Flagged by Analyzer 0 % (0-5); Neutrophil # 5.59 X10^3/uL (2.7-7.7); Neutrophil % 72.4 % (47-70); Platelet Count 203 K/mm3 (150-450); RBC Distribution Width CV 13.4 % (11.6-14.6); RBC Distribution Width SD 43.7 fl (35.1-43.9); Red Blood Count 6.02 M/mm3 (4.6-6.2); White Blood Count 7.7 K/mm3 (4.4-11.0)
== END | disposition home or self-care (01) ==
LOC: MFPLAB 11:31
PROVIDERS: PCP Family Medicine; Visit Provider Family Medicine
DX: R71.8 Other abnormality of red blood cells (principal); E34.9 Endocrine disorder, unspecified
CPT/HCPCS: 36415; 84403; 85025

== ENCOUNTER → 2023-01-06 | Outpatient (CLI) | payer MEDICARE, SELFPAY ==
[2023-01-06 15:24] LABS: Absolute Lymphocyte Count 1.76 X10^3/uL (0.83-4.51); Absolute Neutrophil Count 5.5 X10^3/uL (2.0-7.7); Basophil# 0.03 X10^3/uL; Basophil% 0.4 % (0-1); Eosinophils% 1.2 % (0-5); Hematocrit 50.6 % (40-54); Hemoglobin 16.4 g/dL (13.0-16.5); Lymphocyte # 1.76 X10^3/ul (0.83-4.51); Lymphocyte % 21.5 % (19-41); Mean Corp Hgb Conc 32.4 g/dL (32-36); Mean Corpuscular Hgb 28.7 pg (27.0-32.0); Mean Corpuscular Volume 88.5 fL (80-94); Mean Platelet Vol. 10.3 fl (6.2-12.0); Monocyte# 0.78 X10^3/uL; Monocyte% 9.5 % (0-10); NRBC Flagged by Analyzer 0 % (0-5); Neutrophil # 5.51 X10^3/uL (2.7-7.7); Neutrophil % 67.2 % (47-70); Platelet Count 202 K/mm3 (150-450); RBC Distribution Width CV 13.4 % (11.6-14.6); RBC Distribution Width SD 43.5 fl (35.1-43.9); Red Blood Count 5.72 M/mm3 (4.6-6.2); White Blood Count 8.2 K/mm3 (4.4-11.0)
[2023-01-06 16:25] LABS: Microalbumin,Random Urine 8.4 mg/L (NO RANGE EST.); Microalbumin:Creatinine Ratio 5.6 mg/g CRE (<30 mg/g CRE)
== END | disposition home or self-care (01) ==
LOC: MFPLAB 14:04
PROVIDERS: PCP Family Medicine; Visit Provider Family Medicine
DX: Z00.00 Encounter for general adult medical examination without abnormal findings (principal); D58.2 Other hemoglobinopathies; E34.9 Endocrine disorder, unspecified
CPT/HCPCS: 36415; 82043; 82570; 84403; 85025

== ENCOUNTER → 2023-09-02 | Outpatient (CLI) | payer MEDICARE, SELFPAY ==
[2023-09-02 10:02] LABS: Hematocrit 53.4 % (40-54); Hemoglobin 17.3 g/dL (13.0-16.5); Mean Corp Hgb Conc 32.4 g/dL (32-36); Mean Corpuscular Hgb 28.5 pg (27.0-32.0); Mean Platelet Vol. 10.2 fl (6.2-12.0); Platelet Count 195 K/mm3 (150-450); RBC Distribution Width CV 13.1 % (11.6-14.6); RBC Distribution Width SD 42.6 fl (35.1-43.9); Red Blood Count 6.07 M/mm3 (4.6-6.2); White Blood Count 6.8 K/mm3 (4.4-11.0)
[2023-09-02 10:54] LABS: ALB/GLOB Ratio 1.5 RATIO (0.9-2.4); AST(SGOT) 17 U/L (15-37); Alanine Aminotransfer ALT/SGPT 27 U/L (16-61); Albumin, Serum 4.4 g/dL (3.2-5.0); Alkaline Phosphatase 37 U/L (45-117); Anion Gap 8 (5-15); BUN 15 mg/dL (7-18); BUN/Creat Ratio 16.6 RATIO (10-20); Calcium,Total 9.7 mg/dL (8.5-10.1); Chloride 105 mmol/L (98-107); Cholesterol 162 mg/dL (200); EST Glomerular Filtration Rate 88 mL/min (>60); Est Glom Filt Rate - Afr Amer 107 mL/min (>60); Globulin 2.9 g/dL (2.2-4.2); Glucose 120 mg/dL (74-106); High Density Lipoprotein 45 mg/dL; PSA,Total - Annual Screen 3.38 ng/mL (0.00-4.00); Potassium 4.4 mmol/L (3.5-5.1); Protein, Total 7.3 g/dL (6.4-8.2); Sodium Level 140 mmol/L (136-145); Triglycerides 49 mg/dL; Uric Acid 6.2 mg/dL (3.5-7.2); Very Low Density Lipoprotein 10 mg/dL (5-40)
[2023-09-05 16:02] LABS: Hemoglobin A1c 5.6 % (3.8-5.6)
== END | disposition home or self-care (01) ==
LOC: MFPLAB 08:44
PROVIDERS: PCP Family Medicine; Visit Provider Family Medicine
DX: R73.01 Impaired fasting glucose (principal); I10 Essential (primary) hypertension; Z12.5 Encounter for screening for malignant neoplasm of prostate
CPT/HCPCS: 36415; 80053; 80061; 83036; 84153; 84403; 84550; 85027; G0103

== ENCOUNTER → 2023-09-23 | Outpatient (CLI) | payer MEDICARE, SELFPAY ==
--- NOTE | 2023-09-23 12:40 | RAD_ITS ---
EXAM: XR CHEST, 2 VIEWS CLINICAL INDICATION: SMOKING HISTORY OF 27 YEARS TECHNIQUE: Frontal and lateral views of the chest. COMPARISON: 03/22/2008 FINDINGS: LUNGS AND PLEURAL SPACES: Hyperinflated lungs with diffuse interstitial prominence. Minimal bibasilar atelectasis or scarring. No definite focal pneumonia. No pneumothorax. No effusion. HEART: No significant abnormality. Cardiac silhouette not enlarged. MEDIASTINUM: Central airways and mediastinal contour are unremarkable. BONES/JOINTS: Degenerative changes in the spine and shoulders. No acute fracture. SOFT TISSUES: No significant abnormality. VASCULATURE: Atherosclerosis. RAD/Chest PA and Lateral IMPRESSION: No focal pneumonia. Findings likely indicative of COPD. Consider low dose CT for lung cancer screening between the ages of 50 and 77. Electronically Signed: Jan Rivera DO at 23:58 EDT ,
== END | disposition home or self-care (01) ==
LOC: RAD 12:25
PROVIDERS: PCP Family Medicine; Referring Provider Internal Medicine Medical Oncology; Visit Provider Internal Medicine Medical Oncology
DX: Z87.891 Personal history of nicotine dependence (principal)
CPT/HCPCS: 71046

== ENCOUNTER → 2023-10-03 | Outpatient (CLI) | payer MEDICARE, SELFPAY ==
--- NOTE | 2023-10-03 14:20 | CT_ITS ---
STUDY: CT BRAIN WITH AND WITHOUT CONTRAST REASON FOR EXAM: Male, 73 years old. One year history of intermittent headaches. Hypertension. RADIATION DOSAGE (If Supplied By Facility): CTDIvol = ( 44.99 ) mGy, DLP = ( 1682.21 ) mGycm TECHNIQUE: Transaxial CT imaging of the brain was performed pre and post contrast administration. The examination was performed with intravenous administration of IV 50mL Isovue-300. Individualized dose optimization techniques were used for this CT. COMPARISON: None. FINDINGS: Normal soft tissue structures. Normal calvarium. There is mild cerebral atrophy with widening of the extra-axial spaces and ventricular dilatation. Normal white matter tracts of the cerebral hemispheres. Normal basal ganglia and thalami. Normal brainstem. Normal cerebellum. There is no intracranial hemorrhage. There are no findings of an acute ischemic infarction. Normal visualized paranasal sinuses. CT/Brain/Head W/WO Contrast IMPRESSION: Chronic involutional changes of the brain. Electronically Signed: Leander Cordova MD at 14:39 EDT ,
== END | disposition home or self-care (01) ==
LOC: CT 14:12
PROVIDERS: PCP Family Medicine; Referring Provider Internal Medicine Medical Oncology; Visit Provider Internal Medicine Medical Oncology
DX: R51.9 Headache, unspecified (principal); G89.29 Other chronic pain
CPT/HCPCS: 70470; Q9967

== ENCOUNTER → 2023-10-06 | Outpatient (CLI) | payer MEDICARE, SELFPAY ==
--- NOTE | 2023-10-06 07:34 | US_ITS ---
STUDY: ABDOMINAL ULTRASOUND REASON FOR EXAM: Male, 73 years old. POLYCYTHEMIA TECHNIQUE: Transabdominal ultrasound was performed with real-time and static masterson scale imaging. TECHNICAL QUALITY: Adequate. COMPARISON: None. FINDINGS: Liver: The liver is enlarged and measures 18.4 cm. There is normal echogenicity of the liver. The bile ducts are within normal limits. There is hepatic color flow. The direction of portal flow is hepatopetal. There is no demonstrated mass lesion. Gallbladder: Normal distended gallbladder. The gallbladder wall is thickened and measures 6 mm. There is a negative sonographic Cabrera''s sign. There is no pericholecystic fluid. There are multiple echogenic structures within the gallbladder, consistent with multiple gallstones. Common Bile Duct (C.B.D.): The common bile duct measures 4 mm. Pancreas: Normal size of the head, body and tail of the pancreas. There is normal echogenicity of the pancreas. There is no demonstrated pancreatic mass or cyst. Spleen: Normal size of the spleen. The spleen measures 10.4 cm x 5.2 cm x 5.8 cm. Right Kidney: Normal size of the right kidney. The right kidney measures 11.2 cm x 6.2 cm x 4.7 cm. Normal renal cortex. The right cortex measures 1.6 cm. There is no demonstrated renal mass or cyst. There is no right hydronephrosis. Left Kidney: Normal size of the left kidney. The left kidney measures 11.7 cm x 4.8 cm x 6.2 cm. Normal renal cortex. The left cortex measures 1.8 cm. There is no demonstrated renal mass or cyst. There is no left hydronephrosis. Aorta: Unremarkable I.V.C.: The IVC is patent. There is no ascites. US/Abdomen Complete IMPRESSION: Multiple gallstones. Thickened gallbladder wall. Electronically Signed: Leander Cordova MD at 8:09 EDT ,
== END | disposition home or self-care (01) ==
PROVIDERS: PCP Family Medicine; Referring Provider Internal Medicine Medical Oncology; Visit Provider Internal Medicine Medical Oncology
DX: R79.89 Other specified abnormal findings of blood chemistry (principal); D75.1 Secondary polycythemia
CPT/HCPCS: 76700

== ENCOUNTER → 2023-12-09 | Outpatient (CLI) | payer MEDICARE, SELFPAY ==
[2023-12-09 10:31] LABS: Erythrocyte Sedimentation Rate 7 mm/hr (0-20)
[2023-12-09 11:08] LABS: CPK Total, Creatine Kinase 81 U/L (39-308)
[2023-12-10 14:10] LABS: Anti-Centromere B Ab <0.2 AI (0.0-0.9); Anti-Chromatin <0.2 AI (0.0-0.9); Anti-Jo <0.2 AI (0.0-0.9); Anti-Scleroderma-70 AB <0.2 AI (0.0-0.9); Anti-dsDNA Ab <1 IU/mL (0-9); RNP Ab <0.2 AI (0.0-0.9); SJOGREN'S Anti-SS-A test < 0.2 AI (0.0-0.9); SJOGREN'S Anti-SS-B test < 0.2 AI (0.0-0.9); Smith Ab <0.2 AI (0.0-0.9)
== END | disposition home or self-care (01) ==
LOC: OLS.ABSOLU 08:49 → LAB 10:51
PROVIDERS: PCP Family Medicine; Referring Provider Internal Medicine Gastroenterology; Visit Provider Internal Medicine Gastroenterology
DX: D75.1 Secondary polycythemia (principal)
CPT/HCPCS: 36415; 82085; 82533; 82550; 82784; 82785; 83021; 83516; 84402; 84403; 85652; 85660; 86140; 86225; 86235; 86255; 86256

== ENCOUNTER → 2023-12-10 | Outpatient (CLI) | payer MEDICARE, SELFPAY ==
[2023-12-17 06:10] LABS: Aldosterone, 24Ur < 0.25 ug/24 hr (0.00-19.00); Aldosterone, Ur < 2.50 ug/L (Not Estab.)
== END | disposition home or self-care (01) ==
LOC: LABSPEC 13:07
PROVIDERS: PCP Family Medicine; Referring Provider Internal Medicine Gastroenterology; Visit Provider Internal Medicine Gastroenterology
DX: D75.1 Secondary polycythemia (principal)
CPT/HCPCS: 81050; 82088

== ENCOUNTER → 2023-12-19 | Outpatient (CLI) | payer MEDICARE, SELFPAY ==
--- NOTE | 2023-12-19 09:16 | US_ITS ---
STUDY: ABDOMINAL ULTRASOUND - ELASTOGRAPHY REASON FOR VISIT: Male, 73 years old. Fatty infiltration of the liver. TECHNIQUE: Liver stiffness measurements were obtained on a [employer] RS 85 ultrasound machine using a CA 1-7 probe following the SRU guidelines. 3 measurements were obtained using a 2-D-SWE method. TheIQR/M was 12% suggesting a quality data set. TECHNICAL QUALITY: Adequate. COMPARISON: None. FINDINGS: Liver: There is no demonstrated mass lesion. Median liver stiffness measured 9.2 kPa. Abdomen: There is no demonstrated mass lesion. US/Elastography Parenchyma/Organ IMPRESSION: Liver stiffness measures 9.2 kPa compatible with F2-F3 (Mild to moderate liver fibrosis) Metavir score. Electronically Signed: Leander Cordova MD at 13:24 EDT ,
== END | disposition home or self-care (01) ==
LOC: US 09:15
PROVIDERS: PCP Family Medicine; Referring Provider Internal Medicine Gastroenterology; Visit Provider Internal Medicine Gastroenterology
DX: K76.0 Fatty (change of) liver, not elsewhere classified (principal)
CPT/HCPCS: 76981

== ENCOUNTER → 2024-06-04 | Outpatient (CLI) | payer MEDICARE, SELFPAY ==
[2024-06-04 11:15] LABS: Pathologist Comment May follow
[2024-06-04 14:26] LABS: RBC /Synovial Fluid 1.463 10^6/uL (0); Synovial Fld Mononuclear WBC # 0.862 10^3/ul; Synovial Fld Mononuclear WBC % 54.5 %; Synovial Fld Polynuclear WBC # 0.721 10^3/uL; Synovial Fld Polynuclear WBC % 45.5 %
[2024-06-04 14:32] LABS: Appearance /Synovial Fluid Turbid (CLEAR); Color / Synovial Fluid Red (Pale Yellow)
[2024-06-04 14:33] LABS: AUTO B FLUID DILUENT BKGD CT WBC <0.1 RBC <0.01 (W<.1,R<.01); Source / Synovial Fluid LEFT KNEE
[2024-06-04 17:17] LABS: Lymph 60 %; Neutrophil 36 % (0-25); Other Cell /Synovial Fluid 4 %
[2024-06-04 17:18] LABS: Body Fluid QC Type(s) BF2Q
== END | disposition home or self-care (01) ==
LOC: LABSPEC 11:02
PROVIDERS: PCP Family Medicine; Referring Provider Specialist; Visit Provider Specialist
DX: M17.12 Unilateral primary osteoarthritis, left knee (principal); M25.562 Pain in left knee
CPT/HCPCS: 87015; 87070; 87075; 87101; 87116; 87205; 87206; 89050; 89051

== ENCOUNTER → 2024-07-29 | Outpatient (CLI) | payer MEDICARE, SELFPAY ==
--- NOTE | 2024-07-29 12:01 | CT_ITS ---
PROCEDURE: EXTREMITY LOWER WITHOUT CONTRA 07/29/2024 REASON FOR EXAM: PAIN IN LEFT KNEE Hu protocol. TECHNIQUE: Axial CT images of the hip, knee and ankle joint obtained without intravenous contrast. Coronal and Sagittal reconstruction series were provided. One or more dose reduction techniques were used (e.g., Automated exposure control, adjustment of the mA and/or kV according to patient size, use of iterative reconstruction technique). RADIATION DOSE SUMMARY: CTDlvol: 16.08 mGy DLP: 1562.5 mGycm COMPARISON: None FINDINGS: Bones: No evidence of fracture. Joints: Imaging of the left hip was performed. There is good alignment. No significant joint space narrowing is seen. Imaging of the knee joint was obtained. There is a marked degree of joint space narrowing involving the medial compartment of the knee joint with degenerative spur formation. There is also evidence of joint space narrowing of the patellofemoral joint with degenerative spur formation along the anterior femoral condyle. There are 2 partially calcified densities in the posterior aspect of the knee joints suggestive of joint mice. The larger density measures 1.7 mm. Small joint effusion. Imaging of the ankle joint was performed. No significant abnormality is seen. Soft Tissues: Small knee joint effusion. 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 Reading Location: [id number]
== END | disposition home or self-care (01) ==
LOC: CT 11:59
PROVIDERS: PCP Family Medicine; Referring Provider Specialist; Visit Provider Specialist
DX: M17.12 Unilateral primary osteoarthritis, left knee (principal); M25.562 Pain in left knee
CPT/HCPCS: 73700

== ENCOUNTER 2024-08-23 06:52 | Observation (INO) | payer MEDICARE, SELFPAY ==
--- NOTE | 2024-07-29 12:01 | EKG12_ITS ---
Test Reason : PRE OP Blood Pressure : */* mmHG Vent. Rate : 71 BPM Atrial Rate : 71 BPM P-R Int : 168 ms QRS Dur : 82 ms QT Int : 390 ms P-R-T Axes : 44 -29 20 degrees QTcB Int : 423 ms Normal sinus rhythm Normal ECG Confirmed by FERCHO ANDERSON, SANIA ([id number]), news assignment editor SIMI CHÁVEZ ([id number]) on 08/02/2024 7:04:16 AM Referred By: Farshad Haji Confirmed By: SANIA BRANTLEY MD
[2024-07-29 13:32] LABS: Absolute Lymphocyte Count 2.12 X10^3/uL (0.83-4.51); Absolute Neutrophil Count 5.3 X10^3/uL (2.0-7.7); Basophil# 0.04 X10^3/uL; Basophil% 0.5 % (0-1); Eosinophil# 0.19 X10^3/uL; Eosinophils% 2.3 % (0-5); Hematocrit 49.4 % (40-54); Hemoglobin 16.5 g/dL (13.0-16.5); Lymphocyte # 2.12 X10^3/ul (0.83-4.51); Lymphocyte % 25.4 % (19-41); Mean Corp Hgb Conc 33.4 g/dL (32-36); Mean Corpuscular Hgb 28.7 pg (27.0-32.0); Mean Corpuscular Volume 85.9 fL (80-94); Mean Platelet Vol. 9.9 fl (6.2-12.0); Monocyte# 0.65 X10^3/uL; Monocyte% 7.8 % (0-10); NRBC Flagged by Analyzer 0 % (0-5); Neutrophil # 5.32 X10^3/uL (2.7-7.7); Neutrophil % 63.8 % (47-70); Platelet Count 202 K/mm3 (150-450); RBC Distribution Width CV 13.2 % (11.6-14.6); RBC Distribution Width SD 40.9 fl (35.1-43.9); Red Blood Count 5.75 M/mm3 (4.6-6.2); White Blood Count 8.3 K/mm3 (4.4-11.0)
[2024-07-29 14:18] LABS: Albumin, Serum 4.4 g/dL (3.4-4.8); Anion Gap 11 (5-15); BUN 18 mg/dL (4-19); BUN/Creat Ratio 20.5 RATIO (10-20); Calcium,Total 9.3 mg/dL (7.6-11.0); Carbon Dioxide 24.2 mmol/L (21.0-32.0); Chloride 101 mmol/L (98-108); Creatinine, Serum 0.86 mg/dL (0.70-1.20); EST Glomerular Filtration Rate 92 (>60); Glucose 98 mg/dL (70-99); Magnesium 2.1 mg/dL (1.5-2.2); Potassium 4.3 mmol/L (3.3-5.1); Sodium Level 137 mmol/L (133-145)
--- NOTE | 2024-08-22 21:13 | PCM.HP.BLA ---
History and Physical History and Physical Patient Name: Amparo CantuDOB: 1950 From: DANIELLE MASON PA-C DATE OF PRE-OPERATIVE EXAM: 08/13/2024 DATE OF SURGERY: 08/23/2024 SCHEDULED PROCEDURE: Robotic assisted left total knee arthroplasty HISTORY OF PRESENT ILLNESS: He reports that his left knee pain has been bothering him more recently, primarily located over the inner part of the knee. Patient states that his pain is described as sore. Patient states that sitting, resting, elevating, walking helped alleviate his pain. Patient states that he no longer feels comfortable completing bathing, showering, housework without difficulty due to his knee. Patient reports recent exacerbation of his symptoms. He denies that the pain wakes him up at night. Mr. Duque mentions a fluid collection on his right hip that resulted from a fall on when he hit a brick wall while carrying desserts down steps. He reports applying a heating pad to the area for 30-45 minutes daily. The patient states that the fluid collection was previously larger, and Dr. Chacko had aspirated fluid from it. He denies any redness in the area. Mr. Duque mentions that he has previously received knee injections without significant success. 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 He denies difficulty going up and down stairs. The patient's living situation suggests a multi-story home, as he mentions carrying desserts down steps on . Patient states that he has tried rest, cortisone injection, home exercises, chiropractor, oral medications with no help. Patient states he has tried gel injections with help. Patient states he has not tried ice, heat, physical therapy. Patient has received 6 cortisone injections as well as gel injections. Patient denies ever having surgery on affected joint. REVIEW OF SYSTEMS: Review Of Systems: Constitutional: Denies anorexia, change in appetite, fever, difficulty sleeping, weight change. Cardiovasular: Denies chest pain, heart murmur, irregular heartbeat and peripheral vascular disease. Respiratory: Denies asthma, cough, pneumonia, sleep apnea, shortness of breath, tuberculosis and wheezing. Gastrointestinal: Reports diarrhea, but denies constipation, heartburn, nausea, rectal itching, bloody stools and vomiting. Genitourinary: . (F Genital Sx) Denies incontinence. Musculoskeletal: Denies leg swelling, pain, trouble walking and weakness. Skin: Denies Raynaud's, history of shingles and tattoo. Neurological: Reports numbness/tingling but denies ambulatory dysfunction, dizziness and tremor. Psychiatric: Reports insomnia, but denies anxiety, depression, mental illness and stress. Hematologic/Lymphatic: Denies anemia, bleeding/bruising tendency and past transfusion. Reviewed, no changes. PAST MEDICAL HISTORY: Advance Care Plan: No Advance Directives Effective Date: 03/06/2023 Past Medical History: Medical Problems: Arthritis, High Blood Pressure, Fibrosis of the liver, Wet Macular Degeneration Accidents: Left And Right Bicep Injury Surgical Hx: Hernia Repair - (1969) [facility] [place] Bicep Tendons - MARANDA Lasik - BOTH EYES Deviated Septum Shoulder Arthroscopy LT - (03/06/2016) [email or web address] Anesthesia Complications: None Assistive Devices: Glasses Reviewed, no changes. 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 Personal Habits: Tobacco Use: Patient is a former smoker.Cigarette Use: Former.Smokeless Tobacco: Never Used Smokeless Tobacco.E-Cigarette Use: Never used.Alcohol: Weekly use.Drug Use: Denies Use.Enjoy Exercising: Exercises 1-3 X/Week. Reviewed, no changes. VITALS: Ht: 71.5 Wt: 218lb Wt k.885 BMI: 30.0 BP: 120/73 Pulse: 72 Resp: 11 T: 97.3 T: 36.3C Pain Level: 7/10 O2SatR: 95 ALLERGIES: No Known Drug Allergy MEDICATIONS: Omeprazole 40 mg 1 cap po daily, Lisinopril 10 mg 1 by mouth every day, Preservision Areds 2 Areds 2 as directed, Aspirin Adult Low Dose 81 mg by mouth 1 a day, Vitamin C 500 mg 1 by mouth every day, Glucosamine Chondroitin 1500 Complex Maximum Strength 1500 Com, Metronidazole 0.75 % apply to affected area 2 times a day, Hydrocortisone (Perianal) 2.5 % apply 1 application to affected area twice daily, Vitamin E 400 Unit daily PRE-OP EXAM: General appearance:NORMAL Other: Eyes: Conjunctivae and lids: NORMAL Pupils: ERR Ears, Nose, Mouth, and Throat: NORMAL Other: Inspection of lips, teeth and gums: NORMAL Other: Neck: Examination of neck: no masses noted. Respiratory: Assessment of respiratory effort: NORMAL Other: Auscultation of lungs: clear to auscultation no wheezes, rhonchi or rales. Cardiovascular: Auscultation of heart: regular rate and rhythm, no murmurs, gallops or rubs. Exam of carotid arteries: NORMAL Other: Gastrointestinal: Exam of abdomen: soft, nontender, nondistended bowel sounds present. Lymphatic: Palpation of nodes in neck: NORMAL Other: Palpation of nodes in Axillae: NORMAL Other: Neurological: see below Psychiatric: Orientation to time, place and person: NORMAL Other: Mood and affect: NORMAL Other: PHYSICAL EXAMINATION: - Left knee: - Flexion contracture: 18-degree. - Flexion: Achieved up to 115 degrees. - Alignment: Varus, partially correctable. - Medial Collateral Ligament: 2 millimeters of laxity. - Lateral Collateral Ligament: 1 millimeter of laxity. - Right hip: - Fluctuance: Moderate area of raised fluctuance. - Erythema: No overlying erythema. - Tenderness: Minimal on palpation. IMAGING STUDIES: - Right hip aspiration: - Fluid: 7 cc mostly bloody fluid obtained. - Action: Sent for culture. - Knee X-rays: -4 views of the left knee with sunrise, lateral, and bilateral standing AP and tunnel views reviewed reveal varus alignment and medial joint space narrowing, subchondral sclerosis and osteophyte formation consistent with severe stage IV [id number] erosive osteoarthritis. On bilateral standing AP and tunnel films of the contralateral knee taken for comparison show severe stage IV [id number] IMPRESSION: 1. High blood pressure. 2. Fibrosis of the liver 3. Wet macular degeneration 4. Primary osteoarthritis left knee. 5. Obesity. PLAN: The surgeon did discuss and review all treatment options with the patient including surgical versus nonsurgical. At this time the patient does wish to proceed with the above-stated procedure. Potential risks benefits and complications of the procedure were discussed and reviewed with the patient including but not limited to , infection, nerve and blood vessel damage, persistent pain, numbness, tingling, paresthesias, blood clot, pulmonary embolism, in the requirement for possible further surgery. Patient expressed full understanding. Has no further questions for the doctor. Does agree to proceed with the above-stated procedure, and has signed the appropriate surgery consent form. DVT prophylaxis: We will use aspirin 81 mg twice daily for 4 weeks postoperatively. We will use SALVATORE hose for 2 weeks postoperatively. Pain medication: Patient will be on Tylenol 1000 mg every 8 hours, meloxicam for 30 days postoperatively, oxycodone as needed for pain control. Patient will be on famotidine for 30 days postoperatively. Patient will be on senna as needed for constipation. ___ I have re-examined the patient. There are no clinical changes since date of exam. ___ See progress notes for changes. ___ Dictated on admission Date: Time: Signature:
[2024-08-23] VITALS (17 sets, daily range): BP systolic 102–132; BP diastolic 57–78; PULSE 77–98; RESP 12–18; TEMP 36.3–36.9; O2SAT 94–99; BMI 29.4; BMI 30.5
--- OUTSIDE RECORDS SUMMARY | 2024-08-23 05:37 | XMS RPT_ITS | CCD ---
Author Organization [facility] Care Team Providers Care Transportation Coordinator Name Role Phone Nneka Chamorro MD Primary Care Provider Ashtyn ANDERSON, Dr. Peres Primary Care Provider Ashtyn ANDERSON, Dr. Peres Referring Provider [phone] Roseanna Whitmore Attending Provider Jimmy ANDERSON, Dr. Ayala Attending Provider Jimmy ANDERSON, Dr. Ayala Referring Provider Raissa ANDERSON, Dr. Yen Attending Provider 1([facility])[phone] Raissa ANDERSON, Dr. Yen Referring Provider 1([facility])[phone] NNEKA CHAOMRRO Primary Care Unavailabl e TIP, INGRID Referring Unavailable TIP, INGRID Attending Unavailable NNEKA CHAMORRO Primary Care Unavailabl e YUAN, INGRID Referring Unavailable TIP INGRID Attending Unavailable INGRID KUMAR Attending Unavailable NNEKA CHAMORRO Primary Care Unavailabl e SELF Referring Unavailable Ashtyn ANDERSON, Dr. Peres Primary Care Provider Dr. Nneka Chamorro MD Referring Provider Ynu ANDERSON, Dr. Fernandes Attending Provider Nneka Chamorro Referring Unavailable Jamie Marquez Attending Unavailable Nneka Chamorro Primary Care Unavailable Nneka Chamorro Referring Unavailable Betty, Scott Attending Unavailable Nneka Chamorro Primary Care Unavailable Nneka Chamorro Primary Care Unavailable Jamie Marquez Referring Unavailable Jamie Marquez Attending Unavailable Nneka Chamoror Primary Care Unavailable Jamie Marquez Referring Unavailable Jimmy, Jamie Attending Unavailable Farshad Haji Referring Unavailable Nneka Chamorro Primary Care Unavailable Farshad Haji Attending Unavailable Farshad Haji Referring Unavailable [place], [place] Primary Care Unavailable Farshad Haji Attending Unavailable Farshad Haji Referring Unavailable [place], [place] Primary Care Unavailable Farshad Haji Attending Unavailable Raissa, Farshad Referring Unavailable Farshad Haji Attending Unavailable [place], [place] Primary Care Unavailable PraJamie velasquez Referring Unavailable Praeva, Jamie Attending Unavailable [place], [place] Primary Care Unavailable [place], Patricker Attending Unavailable [facility], [place] Primary Care Un[facility] [place] Referring Unavailable [place], [place] Primary Care Unavailable PrahJamie Attending Unavailable [place] Referring Unavailable [place], [place] Primary Care Unavailable Praeva, Jamie Attending Unavailable [place], [place] Primary Care Unavailable [place] Referring Unavailable Prah, Jamie Attending Unavailable [place], [place] Referring Unavailable Roseanna Barnett Attending Unavailable [facility], [place] Primary Care Unavailable Millicnet Galdamez Attending Unavailable [facility] Primary Care Unavailable RaissaFarshad kessler Referring Unavailable [facility] Primary Care Unavailable Dom Malcolm Attending Unavailable [place] Referring Unavailable [place], [place] Primary Care Unavailable Jamie Marquez Attending Unavailable Farshad Haji Referring Unavailable [facility], [place] Primary Care Unavailable Farshad Haji Attending Unavailable FriendScott Referring Unavailable Friend, Scott Attending Unavailable [facility] Primary Care Unavailable [facility] Primary Care Unavailable FriendScott Referring Unavailable FriendScott Attending Unavailable [facility] Primary Care Unavailable FriendScott Referring Unavailable FriendScott Attending Unavailable [facility] Primary Care Unavailable PraJamie velasquez Referring Unavailable Praeva, Jamie Attending Unavailable Medications Current Medications Medication Drug Class(es) Dates Sig (Normalized) Sig (Original) cholecalciferol 0.05 mg oral capsule (1 source) Vitamin D Start: 07-27-2024 take 1 capsule by mouth once daily Cholecalciferol (Vitamin D3) (Vitamin D3) 50 mcg (2,000 unit) capsule Active 50 ug PO DAILY July 27, 2024 12:00am fluticasone propionate 0.05 mg/actuat metered dose nasal spray (2 sources) Corticosteroid Start: 07-02-2024 Fluticasone Propionate 50 mcg/actuation spray,suspension Active 1 NMA INTRANASAL DAILY as needed for allergy symptoms September 16, 2023 12:00am administer into each nostril hydrocortisone 25 mg/ml topical cream (2 sources) Corticosteroid Start: 09-10-2023 Hydrocortisone 2.5 % cream Active 1 NMA TOPICAL TWICE A DAY as needed for rash September 10, 2023 12:00am lisinopril 10 mg oral tablet (5 sources) Angiotensin Converting Enzyme Inhibitor Start: 09-10-2023 take 1 tablet by mouth once daily Lisinopril 10 mg tablet Active 10 mg PO DAILY September 10, 2023 12:00am metroNIDAZOLE 7.5 mg/ml topical cream (2 sources) Nitroimidazole Antimicrobial Start: 09-10-2023 Metronidazole 0.75 % cream Active 1 NMA TOPICAL DAILY September 10, 2023 12:00am omeprazole 40 mg delayed release oral capsule (4 sources) Proton Pump Inhibitor Start: 09-10-2023 take 1 capsule by mouth once daily Omeprazole 40 mg capsule,delayed release(DR/EC) Active 40 mg PO DAILY September 10, 2023 12:00am proparacaine hydrochloride 5 mg/ml ophthalmic solution (2 sources) Local Anesthetic Start: 07-15-2024 End: 07-15-2024 proparacaine 0.5 % 1 drop (ALCAINE) Start: 05-20-2024 End: 05-20-2024 proparacaine 0.5 % 1 Drop (A LCAINE) Vit C,D-Fn-Huico-Lutein-Zeax an (Preservision Areds-2) 250-90-40-1 mg tablet,chewable (2 sources) Start: 09-23-2023 take 2 tablets by mouth once daily in the morning Vit C,G-Kc-Taagc-Lutein-Zeaxan (Preservision Areds-2) 250-90-40-1 mg tablet,chewable Active 1 {tbl} PO every day in the morning and in the evening September 23, 2023 12:00am Vitamin E Mixed 400 unit tablet (2 sources) Start: 01-13-2024 Vitamin E Mixed 400 unit tablet Active 800 U PO DAILY January 13, 2024 12:00am Completed/Discontinued Medications Medication Drug Class(es) Dates Sig (Normalized) Sig (Original) aflibercept ophthalmic intravitreal 8 mg/0.07 mL 8 mg injection (EYLEA HD) (8 sources) Start: 07-15-2024 End: 07-15-2024 aflibercept ophthalmic intravitreal 8 mg/0.07 mL 8 mg injection (EYLEA HD) Start: 07-15-2024 End: 07-15-2024 8 mg, ONCE, 1 dose, Starting on Sofia 07/15/24 at 1203, Until Sofia 07/15/24 at 1203 Start: 05-20-2024 End: 05-20-2024 aflibercept ophthalmic intra vitreal 8 mg/0.07 mL 8 mg injection (EYLEA HD) Start: 05-20-2024 End: 05-20-2024 8 mg, ONCE, 1 dose, Starting on Sofia 05/20/24 at 0904, Until Sofia 05/20/24 at 0904 aspirin 81 mg delayed release oral tablet (2 sources) Platelet Aggregation Inhibitor, Nonsteroidal Anti-inflammatory Drug Start: 09-10-2023 End: 09-16-2023 Aspirin (Adult Low Dose Aspirin) 81 mg tablet,delayed release (DR/EC) Discontinued 81 mg PO DAILY September 10, 2023 12:00am September 16, 2023 9:14am bevacizumab (Dakotah's) 1.25 mg intravitreal syringe (AVASTIN) (2 sources) Start: 04-15-2024 End: 04-15-2024 bevacizumab (Dakotah's) 1.25 mg intravitreal syringe (AVASTIN) Start: 04-15-2024 End: 04-15-2024 1.25 mg, ONCE, 1 dose, Start ing on Sofia 04/15/24 at 1725, Until Sofia 04/15/24 at 1725 ciclopirox 0.0077 mg/mg topical gel (2 sources) Start: 09-10-2023 End: 09-16-2023 Ciclopirox 0.77 % gel Discontinued 1 NMA TOPICAL TWICE A DAY September 10, 2023 12:00am September 16, 2023 9:14am potassium 75 mg oral tablet (2 sources) Start: 09-10-2023 End: 09-16-2023 take 1 tablet by mouth once daily Potassium 75 mg tablet Discontinued 75 mg PO DAILY September 10, 2023 12:00am September 16, 2023 9:14am triamcinolone acetonide 0.055 mg/actuat metered dose nasal spray (2 sources) Corticosteroid Start: 09-10-2023 End: 09-16-2023 Triamcinolone Acetonide (Nasacort Allergy) 55 mcg aerosol,spray Discontinued 2 NMA INTRANASAL DAILY September 10, 2023 12:00am September 16, 2023 9:14am administer into each nostril Vit C,P-Uf-Tjbhj-Lutein- Zeaxan (Preservision Areds-2) 250-90-40-1 mg capsule (2 sources) Start: 09-10-2023 End: 09-16-2023 take 2 capsules by mouth twice daily Vit C,A-Th-Igjjw-Lutein -Zeaxan (Preservision Areds-2) 250-90-40-1 mg capsule Discontinued 1 {tbl} PO TWICE A DAY September 10, 2023 12:00am September 16, 2023 9:14am Problems Active Problems Problem Classification Problem Date Documented Date Episodic/Chronic Deficiency and other anemia (2 sources) Increased hemoglobin; Translations: [Other hemoglobinopathies] 09-10-2023 Chronic Deficiency and other anemia (1 source) Other hemoglobinopathies; Translations: [Other hemoglobinopathies] Onset: 09-16-2023 Chronic Esophageal disorders (2 sources) Gastroesophageal reflux disease; Translations: [Gastro-esophageal reflux disease without esophagitis] 09-10-2023 Chronic Essential hypertension (2 sources) Hypertensive disorder; Translations: [Essential (primary) hypertension] 09-10-2023 Chronic Gout and other crystal arthropathies (2 sources) Gout; Translations: [Gout, unspecified] 09-10-2023 Chronic Headache; including migraine (2 sources) Headache; Translations: [Headache] 10-08-2023 Episodic Comment on above: CT head on 10/03/2023 was negative. Headache; including migraine (1 source) Headache; including migraine; Translations: [Headache, unspecified] Onset: 10-16-2023 Nutritional deficiencies (6 sources) Serum iron low; Translations: [Iron deficiency] Onset: 05-31-2024 05-31-2024 Episodic Comment on above: Iron is 112 today Osteoarthritis (1 source) Unilateral primary osteoarthritis, left knee; Translations: [Unilateral primary osteoarthritis, left knee] Onset: 08-03-2024 Chronic Other hematologic conditions (4 sources) Erythrocytosis; Translations: [Secondary polycythemia] 05-31-2024 Episodic Comment on above: Discussed causes and evaluation of Polycythemia.Hgb was 16.2 today. 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 Other liver diseases (3 sources) Steatosis of liver; Translations: [Fatty (change of) liver, not elsewhere classified] 03-03-2024 Chronic Other liver diseases (4 sources) Hepatic fibrosis; Translations: [Hepatic fibrosis] 05-31-2024 Chronic Other liver diseases (1 source) Fatty (change of) liver, not elsewhere classified; Translations: [Fatty (change of) liver, not elsewhere classified] Onset: 01-17-2024 Chronic Other liver diseases (3 sources) Large liver; Translations: [Hepatomegaly, not elsewhere classified] 12-09-2023 Episodic Other nervous system disorders (1 source) Other chronic pain; Translations: [Other chronic pain] Onset: 09-23-2023 Chronic Other screening for suspected conditions (not mental disorders or infectious disease) (7 sources) Protein level - finding; Translations: [Other specified abnormal findings of blood chemistry] Onset: 05-31-2024 05-31-2024 Episodic Comment on above: Ferritin 512 today. Liver fibrosis may explain fluctuation of Ferritin level. Residual codes; unclassified (2 sources) Obstructive sleep apnea syndrome; Translations: [Obstructive sleep apnea (adult) (pediatric)] 09-10-2023 Chronic Comment on above: UNABLE TO TOLERATE M ASK Retinal detachments; defects; vascular occlusion; and retinopathy (12 sources) Exudative age-related macular degeneration; Translations: [Exudative age-related macular degeneration, right eye, with active choroidal neovascularization] Onset: 07-15-2024 04-15-2024 Chronic Unclassified (1 source) Hepatic fibrosis, unspecified; Translations: [Hepatic fibrosis, unspecified] Onset: 05-31-2024 Past or Other Problems Problem Classification Problem Date Documented Da te Episodic/Chronic Deficiency and other anemia (1 source) Anemia, unspecified; Translations: [Anemia, unspecified] Onset: 10-08-2023 Episodic Diabetes mellitus without complication (1 source) Impaired fasting glucose; Translations: [Impaired fasting glucose] Onset: 09-17-2023 Episodic Screening and history of mental health and substance abuse codes (1 source) Personal history of nicotine dependence; Translations: [Personal history of nicotine dependence] Onset: 10-02-2023 Episodic Results Test Name Value Interpretation Reference Range Facility MRSA/SAID NASAL SCREENon MRSA+SAID SCRN Reason for Exam: PRE OP MRSA MRSA Negative S. AUREUS S. aureus Negative Normal [facility] Comment on above: Performed By: #### L 501.9985 #### [facility] [address] [place], [address] 12 Lead EKGon 07-29-2024 12 Lead EKG [facility] [address] [place] [address] 12 Lead EKG 07/29/24 1206 MR#: [id number] Acct: [id number] Name: AMPARO CANTU Rep #: [id number] : 1950 74 From: Dom Malcolm MD Attending Dr: Dr. Farshad Haji MD Status: PRE [facility] Ordering Dr: Farshad Haji MD Date: 07/29/24 Location: [facility] Sex: M C Admitted: Test Reason : PRE OP Blood Pressure : */* mmHG Vent. Rate : 71 BPM Atrial Rate : 71 BPM P-R Int : 168 ms QRS Dur : 82 ms QT Int : 390 ms P-R-T Axes : 44 -29 20 degrees QTcB Int : 423 ms Normal sinus rhythm Normal ECG Confirmed by DOM MALCOLM MD ([id number]), video editor SIMI CHÁVEZ ([id number]) on 08/02/2024 7:04:16 AM Referred By: Farshad Haji Confirmed By: DOM MALCOLM MD 08/02/24 0704 Date Dom Malcolm MD CC: Dr. Nneka Chamorro MD; Dr. Farshad Haji MD Signed Normal [facility] Albumin, Serumon 07-29-2024 Albumin [Mass/Vol] 4.4 g/dL Normal 3.4-4.8 [facility] Comment on above: Performed By: #### L 100.0100, L501.1800, M100.651, L501.5200, L500.2500 #### [facility] [address] [place], [address] Basic Metabolic Profile (BMP )on 07-29-2024 BUN/CRE 20.5 RATIO High 10-20 [facility] Comment on above: Performed By: #### L 100.0100, L501.1800, M100.651, L501.5200, L500.2500 #### [facility] [address] [place], [address] Calcium [Mass/Vol] 9.3 mg/dL Normal 7.6-11.0 [facility] Comment on above: Performed By: #### L 100.0100, L501.1800, M100.651, L501.5200, L500.2500 #### [facility] [address] [place], [address] Chloride [Moles/Vol] 101 mmol/L Normal 98-108 [facility] Comment on above: Performed By: #### L 100.0100, L501.1800, M100.651, L501.5200, L500.2500 #### [facility] [address] [place], [address] CO2 [Moles/Vol] 24.2 mmol/L Normal 21.0-32.0 [facility] Comment on above: Performed By: #### L 100.0100, L501.1800, M100.651, L501.5200, L500.2500 #### [facility] [address] [place], [address] Creatinine [Mass/Vol] 0.86 mg/dL Normal 0.70-1.20 [facility] Comment on above: Performed By: #### L 100.0100, L501.1800, M100.651, L501.5200, L500.2500 #### [facility] [address] [place], [address] GAP 11 Normal 5-15 [facility] Comment on above: Performed By: #### L 100.0100, L501.1800, M100.651, L501.5200, L500.2500 #### [facility] [address] [place], [address] GFR/1.73 sq M.predicted among non-blacks MDRD (S/P/Bld) [Vol rate/Area] 92 mL/min/{1.73_m2} Normal >60 [facility] Comment on above: Result Comment: mL/m in/1.73m2 CKD-EPI Creatinine Equation (2020) Performed By: #### L 100.0100, L501.1800, M100.651, L501.5200, L500.2500 #### [facility] [address] [place], [address] Glucose [Mass/Vol] 98 mg/dL Normal 70-99 [facility] Comment on above: Performed By: #### L 100.0100, L501.1800, M100.651, L501.5200, L500.2500 #### [facility] [address] [place], [address] Potassium [Moles/Vol] 4.3 mmol/L Normal 3.3-5.1 [facility] Comment on above: Performed By: #### L 100.0100, L501.1800, M100.651, L501.5200, L500.2500 #### [facility] [address] [place], [address] Sodium [Moles/Vol] 137 mmol/L Normal 133-145 [facility] Comment on above: Performed By: #### L 100.0100, L501.1800, M100.651, L501.5200, L500.2500 #### [facility] [address] [place], [address] Urea nitrogen [Mass/Vol] 18 mg/dL Normal 4-19 [facility] Comment on above: Performed By: #### L 100.0100, L501.1800, M100.651, L501.5200, L500.2500 #### [facility] [address] [place], [address] CBC W/Diff, Automatedon 05-03 21-2024 Absolute Lymph 2.12 X10 3/uL Normal 0.83-4.51 [facility] Comment on above: Performed By: #### L 100.0100, L501.1800, M100.651, L501.5200, L500.2500 #### [facility] [address] [place], [address] Absolute Neut 5.3 X10 3/uL Normal 2.0-7.7 [facility] Comment on above: Performed By: #### L 100.0100, L501.1800, M100.651, L501.5200, L500.2500 #### [facility] [address] [place], [address] Basophils/100 WBC (Bld) 0.5 % Normal 0-1 [facility] Comment on above: Performed By: #### L 100.0100, L501.1800, M100.651, L501.5200, L500.2500 #### [facility] [address] [place], [address] Eosinophils/100 WBC (Bld) 2.3 % Normal 0-5 [facility] Comment on above: Performed By: #### L 100.0100, L501.1800, M100.651, L501.5200, L500.2500 #### [facility] [address] [place], [address] Erythrocyte distribution width (RBC) [Ratio] 13.2 % Normal 11.6-14.6 [facility] Comment on above: Performed By: #### L 100.0100, L501.1800, M100.651, L501.5200, L500.2500 #### [facility] [address] [place], [address] Hematocrit (Bld) [Volume fraction] 49.4 % Normal 40-54 [facility] Comment on above: Performed By: #### L 100.0100, L501.1800, M100.651, L501.5200, L500.2500 #### [facility] [address] [place], [address] Hemoglobin (Bld) [Mass/Vol] 16.5 g/dL Normal 13.0-16.5 [facility] Comment on above: Performed By: #### L 100.0100, L501.1800, M100.651, L501.5200, L500.2500 #### [facility] [address] [place], [address] IG% 0.200 Normal 0.0-0.9 [facility] Comment on above: Result Comment: IG% - Immature Granulocytes (promyelocytes, myelocytes and metamyelocytes) > 1% indicates that a LEFT SHIFT is Present. Performed By: #### L 100.0100, L501.1800, M100.651, L501.5200, L500.2500 #### [facility] [address] [place], [address] Lymphocytes/100 WBC (Bld) 25.4 % Normal 19-41 [facility] Comment on above: Performed By: #### L 100.0100, L501.1800, M100.651, L501.5200, L500.2500 #### [facility] [address] [place], [address] MCH (RBC) [Entitic mass] 28.7 pg Normal 27.0-32.0 [facility] Comment on above: Performed By: #### L 100.0100, L501.1800, M100.651, L501.5200, L500.2500 #### [facility] [address] [place], [address] MCHC (RBC) [Mass/Vol] 33.4 g/dL Normal 32-36 [facility] Comment on above: Performed By: #### L 100.0100, L501.1800, M100.651, L501.5200, L500.2500 #### [facility] [address] [place], [address] MCV (RBC) [Entitic vol] 85.9 fL Normal 80-94 [facility] Comment on above: Performed By: #### L 100.0100, L501.1800, M100.651, L501.5200, L500.2500 #### [facility] [address] [place], [address] Monocytes/100 WBC (Bld) 7.8 % Normal 0-10 [facility] Comment on above: Performed By: #### L 100.0100, L501.1800, M100.651, L501.5200, L500.2500 #### [facility] [address] [place], [address] Neutrophils/100 WBC (Bld) 63.8 % Normal 47-70 [facility] Comment on above: Performed By: #### L 100.0100, L501.1800, M100.651, L501.5200, L500.2500 #### [facility] [address] [place], [address] Nucleated RBC (Bld) [#/Vol] 0 10*3/uL Normal 0-5 [facility] Comment on above: Performed By: #### L 100.0100, L501.1800, M100.651, L501.5200, L500.2500 #### [facility] [address] [place], [address] Platelet mean volume (Bld) [Entitic vol] 9.9 fL Normal 6.2-12.0 [facility] Comment on above: Performed By: #### L 100.0100, L501.1800, M100.651, L501.5200, L500.2500 #### [facility] [address] [place], [address] Platelets (Bld) [#/Vol] 202 10*3/uL Normal 150-450 [facility] Comment on above: Performed By: #### L 100.0100, L501.1800, M100.651, L501.5200, L500.2500 #### [facility] [address] [place], [address] RBC (Bld) [#/Vol] 5.75 10*6/uL Normal 4.6-6.2 [facility] Comment on above: Performed By: #### L 100.0100, L501.1800, M100.651, L501.5200, L500.2500 #### [facility] [address] [place], [address] RDW SD 40.9 fl Normal 35.1-43.9 [facility] Comment on above: Performed By: #### L 100.0100, L501.1800, M100.651, L501.5200, L500.2500 #### [facility] [address] [place], [address] WBC (Bld) [#/Vol] 8.3 10*3/uL Normal 4.4-11.0 [facility] Comment on above: Performed By: #### L 100.0100, L501.1800, M100.651, L501.5200, L500.2500 #### [facility] [address] [place], [address] Extremity Lower without Cont raon 07-29-2024 Extremity Lower without Contra [facility] [address] [place] [address] Extremity Lower without Contra MR#: [id number] Acct: [id number] Name: AMPARO CANTU Rep #: [id number] : 1950 M 74 From: Leander roth MD PCP: Dr. Nneka Chamorro MD Status: REG CLI Study: Extremity Lower without Contra Date of Exam: 0 07/29/24 Exam# [id number] Ordering Dr: Farshad Haji MD PROCEDURE: EXTREMITY LOWER WITHOUT CONTRA 07/29/2024 REASON FOR EXAM: PAIN IN LEFT KNEE Hu protocol. TECHNIQUE: Axial CT images of the hip, knee and ankle joint obtained without intravenous contrast. Coronal and Sagittal reconstruction series were provided. One or more dose reduction techniques were used (e.g., Automated exposure control, adjustment of the mA and/or kV according to patient size, use of iterative reconstruction technique). RADIATION DOSE SUMMARY: CTDlvol: 16.08 mGy DLP: 1562.5 mGycm COMPARISON: None FINDINGS: Bones: No evidence of fracture. Joints: Imaging of the left hip was performed. There is good alignment. No significant joint space narrowing is seen. Imaging of the knee joint was obtained. There is a marked degree of joint space narrowing involving the medial compartment of the knee joint with degenerative spur formation. There is also evidence of joint space narrowing of the patellofemoral joint with degenerative spur formation along the anterior femoral condyle. There are 2 partially calcified densities in the posterior aspect of the knee joints suggestive of joint mice. The larger density measures 1.7 mm. Small joint effusion. Imaging of the ankle joint was performed. No significant abnormality is seen. Soft Tissues: Small knee joint effusion. 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 Reading Location: [facility] CC: Dr. Nneka Chamorro MD; Dr. Farshad Haji MD Roughener: Signed Normal [facility] Magnesiumon 07-29-2024 Magnesium [Mass/Vol] 2.1 mg/dL Normal 1.5-2.2 [facility] Comment on above: Performed By: #### L 501.9985 #### [facility] [address] [place], [address] Acid Fast Bacillus Cultureon 07-19-2024 tAFBC ___ [facility] ORIGINAL REPORT ON FILE IN LAB CONTAINS ADDITIONAL TEST SITE INFORMATION. ___ Culture, Acid Fast NO ACID-FAST BACILLI ISOLATED AFTER 6 WEEKS. Normal [facility] Comment on above: Performed By: #### L 504.2610, L503.6550, L500.4050, L503.6030, L100.0100 #### [facility] [address] [place], [address] Acid Fast Bacillus Smear/Flu oron 07-19-2024 tafb ___ TESTING PERFORMED AT [facility]. ORIGINAL REPORT ON FILE IN LAB CONTAINS ADDITIONAL TEST SITE INFORMATION. ___ Smear, Acid Fast Acid Fast Smear from Concentrated Specimen :Negative [facility] Comment on above: Performed By: #### L 504.2610, L503.6550, L500.4050, L503.6030, L100.0100 #### [facility] [address] [place], [place], [address] Culture, Fungus 8482on 07-19 CUF ___ TESTING PERFORMED AT [facility]. ORIGINAL REPORT ON FILE IN LAB CONTAINS ADDITIONAL TEST SITE INFORMATION. ___ CUF No yeast or mold isolated after 4 weeks. [facility] Comment on above: Performed By: #### L 504.2610, L503.6550, L500.4050, L503.6030, L100.0100 #### [facility] [address] [place], [address] EYLEA HD (AFLIBERCEPT) 8MG I NTRAVITREAL INJECTION OD (RIGHT EYE)on 07-15-2024 [facility] EYLEA HD (AFLIBERCEPT) 8MG I NTRAVITREAL INJECTION OS (LEFT EYE)on 07-15-2024 [facility] OCT MACULA CIRRUS OU (BOTH E YES)on 07-15-2024 [facility] Radiology Study observation (narrative) [facility] Synovial Fluid RBC, WBC AND Diffon 06-28-2024 PATH COM/SYFL Reviewed [facility] Comment on above: Result Comment: SEE REPORT IN PATIENT'S EMR Performed By: #### L 504.2610, L503.6550, L500.4050, L503.6030, L100.0100 #### [facility] [address] [place], [address] Body Fluid Culton 06-09-2024 BFC UNK UNK No growth in 5 days. Normal [facility] Comment on above: Performed By: #### L 504.2610, L503.6550, L500.4050, L503.6030, L100.0100 #### [facility] [address] [place], [address] Culture, Anaerobic Any Sourc braden 06-09-2024 CUAN UNK UNK No anaerobic bacteria isolated. Normal [facility] Comment on above: Performed By: #### L 504.2610, L503.6550, L500.4050, L503.6030, L100.0100 #### [facility] [address] [place], [address] Acid fast bacillus (AFB) cul tureOrdered By: Farshad Haji on 06-04-2024 Mycobacterium sp identified Org specific cx Nom (Unsp spec) [facility] Anaerobic cultureOrdered By: Farshad Haji on 06-04-2024 Bacteria identified Anaer cx Nom (Unsp spec) No anaerobic bacteria isolated. [facility] Appearance (Syn fld)Ordered By: Farshad Haji on 06-04-2024 Synovial Fluid Appearance Turbid CLEAR [facility] Automated synovial fluid jennyfer kocytes count (number/volume)Ordered By: Farshad Haji on 06-04-2024 WBC Auto (Syn fld) [#/Vol] 1.5830 10^3/uL High 0.000-0.00 2 [facility] Automated synovial fluid mon onuclear cell count (number/volume)Ordered By: Farshad Haji on 06-04-2024 Mononuclear cells Auto (Syn fld) [#/Vol] 0.862 10^3/ul [facility] Automated synovial fluid maylin ymorphonuclear cell count (number/volume)Ordered By: Farshad Haji on 06-04-2024 Polymorphonuclear cells Auto (Syn fld) [#/Vol] 0.721 10^3/uL [facility] Automated synovial fluid maylin ymorphonuclear cells as percentage of leukocytesOrdered By: Farshad Haji on 06-04-2024 Polymorphonuclear cells/100 WBC Auto (Syn fld) 45.5 % [facility] Bacteria identified Anaer cx Nom (Unsp spec)Ordered By: Farhsad Haji on 06-04-2024 Anaerobic Culture No anaerobic bacteri a isolated. [facility] Blood lymphocytes/100 leukoc ytesOrdered By: Farshad Haji on 06-04-2024 Lymphocytes/100 WBC (Bld) 60 % [facility] Body fluid cultureOrdered By : Farshad Haji on 06-04-2024 Body Fluid Culture No growth in 5 days. [facility] Cells Counted Total (Syn fld ) [#]Ordered By: Farshad Haji on 06-04-2024 Synovial Fluid Total Cells Counted 1.6090 10^3/uL High 0.000-0.00 0 [facility] Comment on above: This is the Total Nu mber of Nucleated Cell Types in the Body Fluid. Color (Syn fld)Ordered By: Rochelle Haji on 06-04-2024 Synovial Fluid Color Red Pale Yellow [facility] Determination of appearance of synovial fluid (nominal result)Ordered By: Farshad Haji on 06-04-2024 Appearance (Syn fld) Turbid CLEAR [facility] Fungus cultureOrdered By: St cherie Haji on 06-04-2024 Fungus identified Cx Nom (Unsp spec) [facility] Gram Stainon 06-04-2024 GS UNK UNK Centrifuged Specimen? Unable to centrifuge specimen due to insufficient volume. Gram Stain 4+ Red Blood Cells Rare White Blood Cells No organisms seen Normal [facility] Comment on above: Performed By: #### L 504.2610, L503.6550, L500.4050, L503.6030, L100.0100 #### [facility] [place] [address], [address] Gram stainOrdered By: Farshad Haji on 06-04-2024 Microscopic observation Gram stain Nom (Unsp spec) [facility] Lymphocytes/100 WBC (Bld)Ord ered By: Farshad Haji on 06-04-2024 Synovial Fluid Lymphocytes 60 % [facility] Mononuclear cells Auto (Syn fld) [#/Vol]Ordered By: Farshad Haji on 06-04-2024 Synovial Fluid Mononuclear WBCs 0.862 10^3/ul [facility] Mononuclear cells/100 WBC (S yn fld)Ordered By: Farshad Haji on 06-04-2024 Synovial Fluid Mononuclear WBCs % 54.5 % [facility] Neutrophils/100 WBC (Syn fld )Ordered By: Farshad Haji on 06-04-2024 Synovial Fluid Neutrophils 36 % High 0-25 [facility] Other cells/100 WBC Nom (Syn fld)Ordered By: Farshad Haji on 06-04-2024 Synovial Fluid Other Cells 4 % [facility] Pathologist review Casey (Unsp spec) [Interp]Ordered By: Farshad Haij on 06-04-2024 Synovial Fluid Pathologist Comment May follow [facility] Pathologist review of result s (narrative result)Ordered By: Farshad Haji on 06-04-2024 Pathologist review Casey (Unsp spec) [Interp] Reviewed [facility] Comment on above: Previous reported re sult: May follow Edited by: BERRY on 06/28/24:1623SEE REPORT IN PATIENT'S EMR Polymorphonuclear cells Auto (Syn fld) [#/Vol]Ordered By: Farshad Haji on 06-04-2024 Synovial Fluid Polynuclear WBCs 0.721 10^3/uL [facility] Polymorphonuclear cells/100 WBC Auto (Syn fld)Ordered By: Farshad Haji on 06-04-2024 Synovial Fluid Polynuclear WBCs % 45.5 % [facility] RBC (Syn fld) [#/Vol]Ordered By: Farshad Haji on 06-04-2024 Synovial Fluid RBC 1.463 10^6/uL High 0-0 [facility] Specimen source Nom (Body fl d)Ordered By: Farshad Haji on 06-04-2024 Synovial Fluid Source LEFT KNEE [facility] Specimen source identificati on of body fluidOrdered By: Farshad Haji on 06-04-2024 Specimen source Nom (Body fld) LEFT KNEE [facility] Synovial fluid color determi nation (nominal result)Ordered By: Farshad Haji on 06-04-2024 Color (Syn fld) Red Pale Yellow [facility] Synovial fluid erythrocytes count (number/volume)Ordered By: Farshad Haji on 06-04-2024 RBC (Syn fld) [#/Vol] 1.463 10^6/uL High 0-0 [facility] Synovial fluid mononuclear c ells/100 leukocytesOrdered By: Farshad Haji on 06-04-2024 Mononuclear cells/100 WBC (Syn fld) 54.5 % [facility] Synovial fluid neutrophil pe rcentageOrdered By: Farshad Haji on 06-04-2024 Neutrophils/100 WBC (Syn fld) 36 % High 0-25 [facility] Synovial fluid other cells/1 00 leukocytes identificationOrdered By: Farshad Haji on 06-04-2024 Other cells/100 WBC Nom (Syn fld) 4 % [facility] Synovial fluid total cell co untOrdered By: Farshad Haji on 06-04-2024 Cells Counted Total (Syn fld) [#] 1.6090 10^3/uL High 0.000-0.00 0 [facility] Comment on above: This is the Total Nu mber of Nucleated Cell Types in the Body Fluid. WBC Auto (Syn fld) [#/Vol]Or dered By: Farshad Haji on 06-04-2024 Synovial Fluid WBC 1.5830 10^3/uL High 0.000-0 .00 2 [facility] CNCOon 06-02-2024 CNCO Letter Text Letter Text Normal [facility] Absolute lymphocyte countOrd ered By: Jamie Marquez on 05-31-2024 Lymphocytes Auto (Unsp spec) [#/Vol] 1.61 10*3/uL 0.83-4.51 [facility] Absolute neutrophil countOrd ered By: Jamie Marquez on 05-31-2024 Neutrophils (Bld) [#/Vol] 4.8 10*3/uL 2.0-7.7 [facility] Anion gap in Serum or Plasma Ordered By: Jamie Marquez on 05-31-2024 Anion gap [Moles/Vol] 10 mmol/L 5-15 [facility] Automated lymphocyte count a s percentage of total leukocytesOrdered By: Jamie Marquez on 05-31-2024 Lymphocytes/100 WBC Auto (Unsp spec) 22.5 % 19-41 [facility] BUN/creatinine ratioOrdered By: Jamie Marquez on 05-31-2024 Urea nitrogen/Creatinine [Mass ratio] 17.0 mg/mg 10-20 [facility] Basophil percentageOrdered B y: Jamie Marquez on 05-31-2024 Basophils/100 WBC (Bld) 0.3 % 0-1 [facility] Bilirubin, totalOrdered By: Jamie Marquez on 05-31-2024 Bilirubin [Mass/Vol] 0.86 mg/dL 0.00-1.30 [facility] CBC W/Diff, Automatedon 05-15 Absolute Lymph 1.61 X10 3/uL Normal 0.83-4.51 [facility] Comment on above: Performed By: #### L 504.2610, L503.6550, L500.4050, L503.6030, L100.0100 #### [facility] [address] [place], [address] Absolute Neut 4.8 X10 3/uL Normal 2.0-7.7 [facility] Comment on above: Performed By: #### L 504.2610, L503.6550, L500.4050, L503.6030, L100.0100 #### [facility] [address] [place], [address] Basophils/100 WBC (Bld) 0.3 % Normal 0-1 [facility] Comment on above: Performed By: #### L 504.2610, L503.6550, L500.4050, L503.6030, L100.0100 #### [facility] [address] [place], [address] Eosinophils/100 WBC (Bld) 1.8 % Normal 0-5 [facility] Comment on above: Performed By: #### L 504.2610, L503.6550, L500.4050, L503.6030, L100.0100 #### [facility] [address] [place], [address] Erythrocyte distribution width (RBC) [Ratio] 13.8 % Normal 11.6-14.6 [facility] Comment on above: Performed By: #### L 504.2610, L503.6550, L500.4050, L503.6030, L100.0100 #### [facility] [address] [place], [address] Hematocrit (Bld) [Volume fraction] 49.6 % Normal 40-54 [facility] Comment on above: Performed By: #### L 504.2610, L503.6550, L500.4050, L503.6030, L100.0100 #### [facility] [address] [place], [address] Hemoglobin (Bld) [Mass/Vol] 16.2 g/dL Normal 13.0-16.5 [facility] Comment on above: Performed By: #### L 504.2610, L503.6550, L500.4050, L503.6030, L100.0100 #### [facility] [address] [place], [address] IG% 0.300 Normal 0.0-0.9 [facility] Comment on above: Result Comment: IG% - Immature Granulocytes (promyelocytes, myelocytes and metamyelocytes) > 1% indicates that a LEFT SHIFT is Present. Performed By: #### L 504.2610, L503.6550, L500.4050, L503.6030, L100.0100 #### [facility] [address] [place], [address] Lymphocytes/100 WBC (Bld) 22.5 % Normal 19-41 [facility] Comment on above: Performed By: #### L 504.2610, L503.6550, L500.4050, L503.6030, L100.0100 #### [facility] [address] [place], [address] MCH (RBC) [Entitic mass] 28.4 pg Normal 27.0-32.0 [facility] Comment on above: Performed By: #### L 504.2610, L503.6550, L500.4050, L503.6030, L100.0100 #### [facility] [address] [place], [address] MCHC (RBC) [Mass/Vol] 32.7 g/dL Normal 32-36 [facility] Comment on above: Performed By: #### L 504.2610, L503.6550, L500.4050, L503.6030, L100.0100 #### [facility] [address] [place], [address] MCV (RBC) [Entitic vol] 86.9 fL Normal 80-94 [facility] Comment on above: Performed By: #### L 504.2610, L503.6550, L500.4050, L503.6030, L100.0100 #### [facility] [address] [place], [address] Monocytes/100 WBC (Bld) 8.6 % Normal 0-10 [facility] Comment on above: Performed By: #### L 504.2610, L503.6550, L500.4050, L503.6030, L100.0100 #### [facility] [address] [place], [address] Neutrophils/100 WBC (Bld) 66.5 % Normal 47-70 [facility] Comment on above: Performed By: #### L 504.2610, L503.6550, L500.4050, L503.6030, L100.0100 #### [facility] [address] [place], [address] Nucleated RBC (Bld) [#/Vol] 0 10*3/uL Normal 0-5 [facility] Comment on above: Performed By: #### L 504.2610, L503.6550, L500.4050, L503.6030, L100.0100 #### [facility] [address] [place], [address] Platelet mean volume (Bld) [Entitic vol] 10.2 fL Normal 6.2-12.0 [facility] Comment on above: Performed By: #### L 504.2610, L503.6550, L500.4050, L503.6030, L100.0100 #### [facility] [address] [place], [address] Platelets (Bld) [#/Vol] 172 10*3/uL Normal 150-450 [facility] Comment on above: Performed By: #### L 504.2610, L503.6550, L500.4050, L503.6030, L100.0100 #### [facility] [address] [place], [address] RBC (Bld) [#/Vol] 5.71 10*6/uL Normal 4.6-6.2 [facility] Comment on above: Performed By: #### L 504.2610, L503.6550, L500.4050, L503.6030, L100.0100 #### [facility] [address] [place], [address] RDW SD 43.9 fl Normal 35.1-43.9 [facility] Comment on above: Performed By: #### L 504.2610, L503.6550, L500.4050, L503.6030, L100.0100 #### [facility] [address] [place], [address] WBC (Bld) [#/Vol] 7.2 10*3/uL Normal 4.4-11.0 [facility] Comment on above: Performed By: #### L 504.2610, L503.6550, L500.4050, L503.6030, L100.0100 #### [facility] [address] [place], [address] CRPon 05-31-2024 C-REACTIVE PROT 3.65 mg/L High 0.0-3.0 [facility] Comment on above: Performed By: #### L 504.2610, L503.6550, L500.4050, L503.6030, L100.0100 #### [facility] [address] [place], [address] CRP [Mass/Vol]Ordered By: Mary Marquez on 05-31-2024 C-Reactive Protein Extended Range 3.65 mg/L High 0.0-3.0 [facility] Calculated total iron bindin g capacityOrdered By: Jamie Marquez on 05-31-2024 Total Iron Binding Capacity TNP [facility] Comment on above: Test not performed Carbon dioxide, total [Moles /volume] in Central venous bloodOrdered By: Jamie Marquez on 05-31-2024 CO2 [Moles/Vol] 24.8 mmol/L 21.0-32.0 [facility] Chloride assayOrdered By: Mary Marquez on 05-31-2024 Chloride [Moles/Vol] 105 mmol/L 98-108 [facility] Comprehensive Metabolic Prof ilon 05-31-2024 BUN/CRE 17.0 RATIO Normal 10-20 [facility] Comment on above: Performed By: #### L 504.2610, L503.6550, L500.4050, L503.6030, L100.0100 #### [facility] [address] [place], [address] Urea nitrogen [Mass/Vol] 16 mg/dL Normal 4-19 [facility] Comment on above: Performed By: #### L 504.2610, L503.6550, L500.4050, L503.6030, L100.0100 #### [facility] [address] [place], [address] Eosinophil percentageOrdered By: Jamie Marquez on 05-31-2024 Eosinophils/100 WBC (Bld) 1.8 % 0-5 [facility] Erythrocyte Sed Rateon 05-31 SED RATE 1 mm/hr Normal 0-20 [facility] Comment on above: Performed By: #### L 504.2610, L503.6550, L500.4050, L503.6030, L100.0100 #### [facility] [address] [place], [place], [address] Erythrocyte distribution wid th ratioOrdered By: Jamie Marquez on 05-31-2024 Erythrocyte distribution width (RBC) [Ratio] 13.8 % 11.6-14.6 [facility] Erythrocyte distribution wid th standard deviationOrdered By: Rich[place] Jimmy on 05-31-2024 Erythrocyte distribution width (RBC) [Entitic vol] 43.9 fL 35.1-43.9 [facility] Erythrocyte distribution width (RBC) [Ratio] 43.9 fl 35.1-43.9 [facility] Erythrocyte sedimentation ra teOrdered By: Jamie Marquez on 05-31-2024 ESR (Bld) [Velocity] 1 mm/h 0-20 [facility] Estimation of creatinine cady aranceOrdered By: Jamie Marquez on 05-31-2024 Estimated Creatinine Clearance Calc 86.14 ml/min 50-250 [facility] Ferritinon 05-31-2024 Ferritin [Mass/Vol] 512 ng/mL High 37-417 [facility] Comment on above: Performed By: #### L 504.2610, L503.6550, L500.4050, L503.6030, L100.0100 #### [facility] [address] [place], [place], [address] GFR/1.73 sq M.predicted elsa g non-blacks MDRD (S/P/Bld) [Vol rate/Area]Ordered By: Jamie Marquez on 05-31-2024 Estimated GFR (MDRD) Non-Af Amer 86 >60 [facility] Comment on above: mL/min/1.73m2 CKD-EP I Creatinine Equation (2020) Glomerular filtration rate ( GFR) estimation/1.73 sq m using serum, plasma, or whole bOrdered By: Jamie Marquez on 05-31-2024 GFR/1.73 sq M.predicted among non-blacks MDRD (S/P/Bld) [Vol rate/Area] 86 mL/min/{1.73_m2} >60 [facility] Comment on above: mL/min/1.73m2 CKD-EP I Creatinine Equation (2020) Hematocrit Auto (Bld) [Volum e fraction]Ordered By: Jamie Marquez on 05-31-2024 Hematocrit (Bld) [Volume fraction] 49.6 % 40-54 [facility] Hemoglobin measurementOrdere d By: Jamie Marquez on 05-31-2024 Hemoglobin (Bld) [Mass/Vol] 16.2 g/dL 13.0-16.5 [facility] Immature granulocytes/100 WB C Auto (Bld)Ordered By: Jamie Marquez on 05-31-2024 Immature granulocytes/100 WBC (Bld) 0.300 % 0.0-0.9 [facility] Comment on above: IG% - Immature Granu locytes (promyelocytes, myelocytes and metamyelocytes) > 1% indicates that a LEFT SHIFT is Present. Iron (Unsp spec) [Mass/Mass] Ordered By: Jamie Marquez on 05-31-2024 Iron [Mass/Vol] 112 ug/dL 65-175 [facility] Iron measurement (mass/mass) Ordered By: Jamie Marquez on 05-31-2024 Iron (Unsp spec) [Mass/Mass] 112 ug/dL 65-175 [facility] Iron saturation [Mass fracti on]Ordered By: Jamie Marquez on 05-31-2024 Iron Saturation 49.0 % 9-55 [facility] Iron+Iron Binding Capacityon 05-31-2024 TIBC TNP Normal 250-450 [facility] Comment on above: Performed By: #### L 504.2610, L503.6550, L500.4050, L503.6030, L100.0100 #### [facility] [address] [place], [address] LDHon 05-31-2024 LDH 158 U/L Normal 87-241 [facility] Comment on above: Order Comment: 1 Performed By: #### L 504.2610, L503.6550, L500.4050, L503.6030, L100.0100 #### [facility] [address] [place], [address] Laboratory - Chemistry and C hemistry - challengeOrdered By: Jamie Marquez on 05-31-2024 AST [Catalytic activity/Vol] 19 U/L <38 [facility] Lactate dehydrogenase (LDH) measurementOrdered By: Jamie Marquez on 05-31-2024 LDH [Catalytic activity/Vol] 158 U/L 87-241 [facility] Lymphocytes Auto (Unsp spec) [#/Vol]Ordered By: Jamie Marquez on 05-31-2024 Lymphocytes (Bld) [#/Vol] 1.61 10*3/uL 0.83-4.51 [facility] Lymphocytes/100 WBC Auto (Un sp spec)Ordered By: Jamie Marquez on 05-31-2024 Lymphocytes/100 WBC (Bld) 22.5 % 19-41 [facility] MCV (mean corpuscular volume ) determinationOrdered By: Jamie Marquez on 05-31-2024 MCV (RBC) [Entitic vol] 86.9 fL 80-94 [facility] Mean corpuscular hemoglobin (MCH) determinationOrdered By: Jamie Marquez on 05-31-2024 MCH (RBC) [Entitic mass] 28.4 pg 27.0-32.0 [facility] Mean corpuscular hemoglobin concentration (MCHC) determinationOrdered By: Jamie Marquez on 05-31-2024 MCHC (RBC) [Mass/Vol] 32.7 g/dL 32-36 [facility] Mean platelet volume determi nationOrdered By: Jamie Marquez on 05-31-2024 Platelet mean volume (Bld) [Entitic vol] 10.2 fL 6.2-12.0 [facility] Monocyte percentageOrdered B y: Jamie Marquez on 05-31-2024 Monocytes/100 WBC (Bld) 8.6 % 0-10 [facility] Neutrophil percentageOrdered By: Jamie Marquez on 05-31-2024 Neutrophils/100 WBC (Bld) 66.5 % 47-70 [facility] No Panel InformationOrdered By: Jamie Marquez on 05-31-2024 Unsaturated Iron Binding Capacity 117 ug/dL Low 228-428 [facility] Nucleated red blood cell per centageOrdered By: Jamie Marquez on 05-31-2024 Nucleated RBC/100 WBC (Bld) [Ratio] 0 % 0-5 [facility] Oncology Visit Reporton 05-15 Oncology Visit Report [facility] [address] [place] [address] OFFICE VISIT Date of Service: 05/31/24 1101 MR#: [id number] Acct: [id number] Name: AMPARO CANTU Rep #: [id number] : 1950 From: Jamie Marquez MD Age/Sex: 74/M Location: [facility] Status: Signed HPI Subjective Date of Service 05/31/24 Chief Complaint F/u for high hemoglobin level. History of Present Illness 74y.o.man was found to have persistent increase in HGB and referred for further evaluation. Had JAK2 mutation done in 2022 which was negative. Had blood work showed persistent increase in Hgb. Had CT head for headaches on 10/03/2023 which showed chronic involutional changes. Ferritin was elevated, HGB normalized. Liver elastography on 12/19/2023 showed moderate fibrosis which may explain high ferritin. He is on Vit E. Ccomes for follow up. He feels well. [facility] Medical History Low testosterone Gout Hypertension JORGE (obstructive sleep apnea) Acid reflux disease Psoriasis, guttate Elevated hemoglobin Surgical History Bilateral cataracts Biceps tendon tear History of hernia surgery H/O repair of left rotator cuff History of nasal surgery Family History Father , 82 Prostate cancer Brother , half brother Brain cancer Mother , 66 Heart disease valve replacement Social History housing: house current occupational status: retired Smoking Status: Former smoker quit date: 03/17/96 pack-years: 25 alcohol intake: former substance use type: does not use Intake Vital Signs 01/13/24 15:38 05/31/24 11:04 Height 5 ft 11.5 in 5 ft 11.5 in Weight: 99.989 kg BMI 30.3 BP 99/65 Blood Pressure Location Lt brachial Position Sitting Respiration 18 Pulse 62 Pulse Source Monitor Temp 98.1 F Temperature Source Temporal Artery Pulse Oximetry (%) 96 Oxygen Delivery Method room air Intake Is patient in pain?: No Allergies No Known Drug Allergies Allergy (Verified 05/31/24 11:05) none Medications ???Medication ???Instructions ???Recorded ???Confirmed ???Type hydrocortisone 2.5 % topical cream 1 applic topical BID PRN 4 05/31/24 History lisinopril 10 mg tablet 10 mg PO DAILY 09/10/23 05/31/24 H istory metronidazole 0.75 % topical cream 1 applic topical DAILY 09/10/23 05/31/24 History omeprazole 40 mg capsule,delayed 40 mg PO DAILY 09/10/23 05/31/24 H istory release fluticasone propionate 50 1 spray intranasal DAILY PRN 09/1505/31/24 History mcg/actuation nasal spray,suspension vit C 250 mg-E 90 mg-zinc 40 1 tab PO QAM AND QPM 09/23/2305/15 History mg-copper 1 [id number] chew tablet (PreserVision AREDS-2) vitamin E mixed 400 unit tablet 800 unit PO DAILY 01/13/24 5 History Have you fallen in the past year?: No Central Venous Access Central Venous Access: No Laboratory Tests 09/16/23 09/16/23 01/13/24 10:10 10:38 15:02 WBC 7.4 8.1 Hgb 17.0 H 15.8 Hct 52.3 47.3 Plt Count 201 190 Absolute Neuts (auto) 5.3 5.2 Absolute Lymphs (auto) 1.35 VBG Carboxyhemoglobin 1.2 Sodium 140 Potassium 4.6 Chloride 105 Carbon Dioxide 29.0 BUN 14 Creatinine 1.03 Glucose 109 H Calcium 9.5 Iron 87 48 L TIBC 266 270 Iron Saturation 32.7 17.8 Erythropoietin 6.4 Ferritin 392 H 378 Total Bilirubin 1.00 AST 17 ALT 28 Alkaline Phosphatase 42 L Lactate Dehydrogenase 192 Total Protein 7.2 Albumin 4.2 Globulin 3.0 05/31/24 09:25 WBC 7.2 Hgb 16.2 Hct 49.6 Plt Count 172 Absolute Neuts (auto) 4.8 Absolute Lymphs (auto) VBG Carboxyhemoglobin Sodium 140 Potassium 4.5 Chloride 105 Carbon Dioxide 24.8 BUN Creatinine 0.94 Glucose 90 Calcium 9.2 Iron TIBC Iron Saturation 49.0 Erythropoietin Ferritin 512 H Total Bilirubin 0.86 AST 19 ALT 18 Alkaline Phosphatase 38 L Lactate Dehydrogenase Total Protein 6.6 Albumin 4.5 Globulin 2.1 L Exam Physical Exam Const alert, oriented x3 and no apparent distress Coding Level of Care Code Off vis,est,level 3 Exam Problem Focused Diagnoses Liver fibrosis K74.00 Polycythemia D75.1 Elevated ferritin R79.89 Low serum iron E61.1 Assessment and Plan Assessment and Plan (1) Liver fibrosis: Status: Chronic Plan: To continue Vitamin E and follow up with GI (2) Polycythemia: Status: Resolved Comment: Discussed causes and evaluation of Polycythemia. Hgb was 16.2 (more content not included)... Normal [facility] Platelet countOrdered By: Mary Marquez on 05-31-2024 Platelets (Bld) [#/Vol] 172 10*3/uL 150-450 [facility] Potassium (Unsp spec) [Mass/ Vol]Ordered By: Jamie Marquez on 05-31-2024 Potassium [Moles/Vol] 4.5 mmol/L 3.3-5.1 [facility] Potassium measurement (mass/ volume)Ordered By: Jamie Marquez on 05-31-2024 Potassium (Unsp spec) [Mass/Vol] 4.5 mmol/L 3.3-5.1 [facility] RBC Auto (Bld) [#/Vol]Ordere d By: Jamie Marquez on 05-31-2024 RBC (Bld) [#/Vol] 5.71 10*6/uL 4.6-6.2 [facility] Serum creatinine measurement (mass/volume)Ordered By: Jamie Marquez on 05-31-2024 Creatinine [Mass/Vol] 0.94 mg/dL 0.70-1.20 [facility] Serum globulin measurementOr dered By: Jamie Marquez on 05-31-2024 Globulin (S) [Mass/Vol] 2.1 g/dL Low 2.2-4.2 [facility] Serum glucose measurement (m ass/volume)Ordered By: Jamie Marquez on 05-31-2024 Glucose [Mass/Vol] 90 mg/dL 70-99 [facility] Serum or plasma C reactive p rotein measurement (mass/volume)Ordered By: Jamie Marquez on 05-31-2024 CRP [Mass/Vol] 3.65 mg/L High 0.0-3.0 [facility] Serum or plasma alanine dick otransferase (ALT) measurementOrdered By: Jamie Marquez on 05-31-2024 ALT [Catalytic activity/Vol] 18 U/L <47 [facility] Serum or plasma albumin audelia urement (mass/volume)Ordered By: Jamie Marquez on 05-31-2024 Albumin [Mass/Vol] 4.5 g/dL 3.4-4.8 [facility] Serum or plasma albumin/glob ulin mass ratioOrdered By: Jamie Marquez on 05-31-2024 Albumin/Globulin [Mass ratio] 2.1 {ratio} 0.9-2.4 [facility] Serum or plasma alkaline marlena sphatase measurementOrdered By: Jamie Marquez on 05-31-2024 ALP [Catalytic activity/Vol] 38 U/L Low 40-129 [facility] Serum or plasma calcium audelia urement (mass/volume)Ordered By: Jamie Marquez on 05-31-2024 Calcium [Mass/Vol] 9.2 mg/dL 7.6-11.0 [facility] Serum or plasma ferritin dheeraj surement (mass/volume)Ordered By: Jamie Marquez on 05-31-2024 Ferritin [Mass/Vol] 512 ng/mL High 37-417 [facility] Serum or plasma iron saturat ion measurement (mass fraction)Ordered By: Jamie Marquez on 05-31-2024 Iron saturation [Mass fraction] 49.0 % 9-55 [facility] Serum or plasma urea nitroge n measurement (mass/volume)Ordered By: Jamie Marquez on 05-31-2024 Urea nitrogen [Mass/Vol] 16 mg/dL 4-19 [facility] Sodium levelOrdered By: Kwan Marquez on 05-31-2024 Sodium [Moles/Vol] 140 mmol/L 133-145 [facility] Total proteinOrdered By: Russell Marquez on 05-31-2024 Protein [Mass/Vol] 6.6 g/dL 5.9-8.4 [facility] White blood cell (WBC) count Ordered By: Jamie Marquez on 05-31-2024 WBC (Bld) [#/Vol] 7.2 10*3/uL 4.4-11.0 [facility] EYLEA HD (AFLIBERCEPT) 8MG I NTRAVITREAL INJECTION OD (RIGHT EYE)on 05-20-2024 [facility] EYLEA HD (AFLIBERCEPT) 8MG I NTRAVITREAL INJECTION OS (LEFT EYE)on 05-20-2024 [facility] OCT MACULA CIRRUS OU (BOTH E YES)on 05-20-2024 [facility] Radiology Study observation (narrative) [facility] AVASTIN (BEVACIZUMAB) 1.25MG INTRAVITREAL INJECTION OD (RIGHT EYE)on 04-15-2024 [facility] OCT MACULA CIRRUS OU (BOTH E YES)on 04-15-2024 [facility] Radiology Study observation (narrative) [facility] Gastroenterology Visit Repor ton 03-03-2024 Gastroenterology Visit Report [facility]enter[facility] [address] [place] [address] OFFICE VISIT Date of Service: 03/03/24 MR#: [id number] Acct: [id number] Name: AMPARO CANTU Rep #: [id number] : 1950 Provider: FELI Watts Age/Sex: 73/M Location: [facility] Status: Signed Intake Vital Signs 10/08/23 11:23 01/13/24 15:38 Height 5 ft 11.5 in 5 ft 11.5 in Weight: 223 lb 8 oz BMI 30.7 BP 109/67 Blood Pressure Location Lt brachial Position Sitting Respiration 18 Pulse 76 Pulse Source Monitor Temp 98.7 F Pulse Oximetry (%) 93 Oxygen Delivery Method room air Intake Visit Reasons: 3 M FU Chief Complaint: losing his voice and fatty liver Allergies No Known Drug Allergies Allergy (Verified 01/13/24 15:41) none Have you fallen in the past year?: No Nurse's Note: OV 03.03.24 Pt here for f/u. Pt reports losing his voice often and its worrisome. Reports formed BM daily. Denies blood in stools, N/V/D and itching. Prior hx of EGD was many years ago. Continues taking omeprazole daily. [facility] Medical History Low testosterone Gout Hypertension JORGE (obstructive sleep apnea) Acid reflux disease Psoriasis, guttate Elevated hemoglobin Surgical History Bilateral cataracts Biceps tendon tear History of hernia surgery H/O repair of left rotator cuff History of nasal surgery Family History Father , 82 Prostate cancer Brother , half brother Brain cancer Mother , 66 Heart disease valve replacement Social History housing: house current occupational status: retired Smoking Status: Former smoker quit date: 03/17/96 pack-years: 25 alcohol intake: former substance use type: does not use HPI HPI Chief Complaint: losing his voice and fatty liver Details: AMPARO CANTU, is a 73 M who presents to the office today for f/u *[facility] established 12.09.23 pt reports he was referred to [facility] for chronically elevated hemoglobin and for an enlarged liver. Pt reports that he is not having any GI symptoms of concern at this time, does endorse that he occasionally loses his voice. Biochemical work up: CRP 7.5 H, ESR wnl, hemoglobin A, A2, C, F, S, variant wnl, testosterone wnl, cortisol wnl, IgA IgG IgM IgE wnl, celiac wnl Liver elastography 12.19.23: Liver stiffness measures 9.2 kPa compatible with F2-F3 (Mild to moderate liver fibrosis) Metavir score *Start vitamin E 800 IU daily OV 03.03.24 Pt has been doing well with no GI complaints. He is taking 1000 IU of vitamin E daily. He feels unwell if he misses a day. Pt has had intermittent issues with hoarseness. He does see ENT but has not mentioned this to them. He denies abd pain, n/v, heartburn, constipation or diarrhea. ROS Const Constitutional: No anorexia, fatigue, fever(s), weight change or sleep problems Eyes Eyes: No change in vision ENT ENT: No abnormal hearing, difficulty swallowing, mouth lesions, tongue swelling or throat swelling Resp Respiratory: No cough or shortness of breath Cardio Cardiology: No chest pain at rest, chest pain with exertion, shortness of breath or dyspnea on exertion Gastro GI: No difficulty swallowing Genitourinary Male: No difficulty urinating or burning urination Musc Musculoskeletal: No joint pain, joint swelling, muscle weakness or decreased muscle mass Skin Skin: No hair loss in leg, yellowing of the eye, itchy eyes, rash, skin ulcer or skin swelling Neuro Neurology: No abnormal hearing, abnormal movements, confusion, unsteady gait/balance or memory loss Psych Psychiatric: No anxiety, No confusion and No memory loss Endo Endocrine: No fatigue or weight change Aller/Imm Allergy/Immunologic: No itchy eyes, throat swelling or tongue swelling Eran/Lymp Hematologic/Lymphatic: No easy bleeding, easy bruising or enlarged lymph nodes Exam Const General: cooperative and comfortable Nutritional Appearance: average body habitus and well nourished [facility] Head: normal to inspection Ears: hearing grossly normal bilaterally Nose: external nose normal Face and sinus: normal facial exam Eyes General: appearance normal, both eyes and all related structures Neck Neck: normal visual inspection Chest Chest palpation inspection: normal inspection of the chest and normal palpation of entire chest wall Resp Effort Inspection: normal respiratory effort Auscultation: Bilateral: Clear to Auscultation Cardio Palpation: normal PMI Rate: regular rate Rhythm: regular rhythm GI Inspection: normal to inspection Auscultation: normal bowel sounds Percussion: normal (more content not included)... Normal [facility] CBC W/Diff, Automatedon 10-2 Absolute Lymph 2.02 X10 3/uL Normal 0.83-4.51 [facility] Comment on above: Performed By: #### L 504.2610, L503.6550, L500.4050, L503.6030, L100.0100 #### [facility] [address] [place], [address] Absolute Neut 5.2 X10 3/uL Normal 2.0-7.7 [facility] Comment on above: Performed By: #### L 504.2610, L503.6550, L500.4050, L503.6030, L100.0100 #### [facility] [address] [place], [address] Basophils/100 WBC (Bld) 0.2 % Normal 0-1 [facility] Comment on above: Performed By: #### L 504.2610, L503.6550, L500.4050, L503.6030, L100.0100 #### [facility] [address] [place], [address] Eosinophils/100 WBC (Bld) 1.5 % Normal 0-5 [facility] Comment on above: Performed By: #### L 504.2610, L503.6550, L500.4050, L503.6030, L100.0100 #### [facility] [address] [place], [address] Erythrocyte distribution width (RBC) [Ratio] 13.3 % Normal 11.6-14.6 [facility] Comment on above: Performed By: #### L 504.2610, L503.6550, L500.4050, L503.6030, L100.0100 #### [facility] [address] [place], [address] Hematocrit (Bld) [Volume fraction] 47.3 % Normal 40-54 [facility] Comment on above: Performed By: #### L 504.2610, L503.6550, L500.4050, L503.6030, L100.0100 #### [facility] [address] [place], [address] Hemoglobin (Bld) [Mass/Vol] 15.8 g/dL Normal 13.0-16.5 [facility] Comment on above: Performed By: #### L 504.2610, L503.6550, L500.4050, L503.6030, L100.0100 #### [facility] [address] [place], [address] IG% 0.200 Normal 0.0-0.9 [facility] Comment on above: Result Comment: IG% - Immature Granulocytes (promyelocytes, myelocytes and metamyelocytes) > 1% indicates that a LEFT SHIFT is Present. Performed By: #### L 504.2610, L503.6550, L500.4050, L503.6030, L100.0100 #### [facility] [address] [place], [address] Lymphocytes/100 WBC (Bld) 25.0 % Normal 19-41 [facility] Comment on above: Performed By: #### L 504.2610, L503.6550, L500.4050, L503.6030, L100.0100 #### [facility] [address] [place], [address] MCH (RBC) [Entitic mass] 28.6 pg Normal 27.0-32.0 [facility] Comment on above: Performed By: #### L 504.2610, L503.6550, L500.4050, L503.6030, L100.0100 #### [facility] [address] [place], [address] MCHC (RBC) [Mass/Vol] 33.4 g/dL Normal 32-36 [facility] Comment on above: Performed By: #### L 504.2610, L503.6550, L500.4050, L503.6030, L100.0100 #### [facility] [address] [place], [address] MCV (RBC) [Entitic vol] 85.5 fL Normal 80-94 [facility] Comment on above: Performed By: #### L 504.2610, L503.6550, L500.4050, L503.6030, L100.0100 #### [facility] [address] [place], [address] Monocytes/100 WBC (Bld) 8.4 % Normal 0-10 [facility] Comment on above: Performed By: #### L 504.2610, L503.6550, L500.4050, L503.6030, L100.0100 #### [facility] [address] [place], [address] Neutrophils/100 WBC (Bld) 64.7 % Normal 47-70 [facility] Comment on above: Performed By: #### L 504.2610, L503.6550, L500.4050, L503.6030, L100.0100 #### [facility] [address] [place], [address] Nucleated RBC (Bld) [#/Vol] 0 10*3/uL Normal 0-5 [facility] Comment on above: Performed By: #### L 504.2610, L503.6550, L500.4050, L503.6030, L100.0100 #### [facility] [address] [place], [address] Platelet mean volume (Bld) [Entitic vol] 9.8 fL Normal 6.2-12.0 [facility] Comment on above: Performed By: #### L 504.2610, L503.6550, L500.4050, L503.6030, L100.0100 #### [facility] [address] [place], [address] Platelets (Bld) [#/Vol] 190 10*3/uL Normal 150-450 [facility] Comment on above: Performed By: #### L 504.2610, L503.6550, L500.4050, L503.6030, L100.0100 #### [facility] [address] [place], [address] RBC (Bld) [#/Vol] 5.53 10*6/uL Normal 4.6-6.2 [facility] Comment on above: Performed By: #### L 504.2610, L503.6550, L500.4050, L503.6030, L100.0100 #### [facility] [address] [place], [address] RDW SD 41.7 fl Normal 35.1-43.9 [facility] Comment on above: Performed By: #### L 504.2610, L503.6550, L500.4050, L503.6030, L100.0100 #### [facility] [address] [place], [address] WBC (Bld) [#/Vol] 8.1 10*3/uL Normal 4.4-11.0 [facility] Comment on above: Performed By: #### L 504.2610, L503.6550, L500.4050, L503.6030, L100.0100 #### [facility] [address] [place], [address] Comprehensive Metabolic Prof ilon 01-13-2024 Albumin [Mass/Vol] 4.2 g/dL Normal 3.2-5.0 [facility] Comment on above: Order Comment: 1 Performed By: #### L 504.2610, L503.6550, L500.4050, L503.6030, L100.0100 #### [facility] [address] [place], [address] Albumin/Globulin [Mass ratio] 1.7 {ratio} Normal 0.9-2.4 [facility] Comment on above: Order Comment: 1 Performed By: #### L 504.2610, L503.6550, L500.4050, L503.6030, L100.0100 #### [facility] [address] [place], [address] ALK P 43 U/L Low 45-117 [facility] Comment on above: Order Comment: 1 Performed By: #### L 504.2610, L503.6550, L500.4050, L503.6030, L100.0100 #### [facility] [address] [place], [address] ALT [Catalytic activity/Vol] 28 U/L Normal 16-61 [facility] Comment on above: Order Comment: 1 Performed By: #### L 504.2610, L503.6550, L500.4050, L503.6030, L100.0100 #### [facility] [address] [place], [address] AST [Catalytic activity/Vol] 21 U/L Normal 15-37 [facility] Comment on above: Order Comment: 1 Performed By: #### L 504.2610, L503.6550, L500.4050, L503.6030, L100.0100 #### [facility] [address] [place], [address] Bilirubin [Mass/Vol] 0.80 mg/dL Normal 0.20-1.00 [facility] Comment on above: Order Comment: 1 Result Comment: For patients on eltrombopag therapy, use of Dimension [place] TBIL is not recommended. Performed By: #### L 504.2610, L503.6550, L500.4050, L503.6030, L100.0100 #### [facility] [address] [place], [address] BUN/CRE 16.9 RATIO Normal 10-20 [facility] Comment on above: Order Comment: 1 Performed By: #### L 504.2610, L503.6550, L500.4050, L503.6030, L100.0100 #### [facility] [address] [place], [address] CA,Total 8.9 mg/dL Normal 8.5-10.1 [facility] Comment on above: Order Comment: 1 Performed By: #### L 504.2610, L503.6550, L500.4050, L503.6030, L100.0100 #### [facility] [address] [place], [address] Chloride [Moles/Vol] 107 mmol/L Normal 98-107 [facility] Comment on above: Order Comment: 1 Performed By: #### L 504.2610, L503.6550, L500.4050, L503.6030, L100.0100 #### [facility] [address] [place], [address] CO2 [Moles/Vol] 26.0 mmol/L Normal 21.0-32.0 [facility] Comment on above: Order Comment: 1 Performed By: #### L 504.2610, L503.6550, L500.4050, L503.6030, L100.0100 #### [facility] [address] [place], [address] Creatinine [Mass/Vol] 0.89 mg/dL Normal 0.70-1.30 [facility] Comment on above: Order Comment: 1 Result Comment: The validity of the calculated GFR GFRAA in patients over 70 years has not been determined. Clinical correlation is essential. Performed By: #### L 504.2610, L503.6550, L500.4050, L503.6030, L100.0100 #### [facility] [address] [place], [address] ECRCL 91.91 ml/min Normal [facility] Comment on above: Order Comment: 1 Performed By: #### L 504.2610, L503.6550, L500.4050, L503.6030, L100.0100 #### [facility] [address] [place], [address] EST GFR - AA 108 mL/min Normal >60 [facility] Comment on above: Order Comment: 1 Result Comment: Afri can Barbadian GFR Calc Performed By: #### L 504.2610, L503.6550, L500.4050, L503.6030, L100.0100 #### [facility] [address] [place], [address] GAP 6 Normal 5-15 [facility] Comment on above: Order Comment: 1 Performed By: #### L 504.2610, L503.6550, L500.4050, L503.6030, L100.0100 #### [facility] [address] [place], [address] GFR/1.73 sq M.predicted among non-blacks MDRD (S/P/Bld) [Vol rate/Area] 89 mL/min/{1.73_m2} Normal >60 [facility] Comment on above: Order Comment: 1 Result Comment: Non- GFR Calc Performed By: #### L 504.2610, L503.6550, L500.4050, L503.6030, L100.0100 #### [facility] [address] [place], [address] Globulin (S) [Mass/Vol] 2.5 g/dL Normal 2.2-4.2 [facility] Comment on above: Order Comment: 1 Performed By: #### L 504.2610, L503.6550, L500.4050, L503.6030, L100.0100 #### [facility] [address] [place], [address] Glucose [Mass/Vol] 106 mg/dL Normal 74-106 [facility] Comment on above: Order Comment: 1 Result Comment: Fast ing Glucose result from 100 to 125 mg/dL suggests IMPAIRED HOMEOSTASIS per A.D.A. criteria. Performed By: #### L 504.2610, L503.6550, L500.4050, L503.6030, L100.0100 #### [facility] [address] [place], [address] Potassium [Moles/Vol] 3.9 mmol/L Normal 3.5-5.1 [facility] Comment on above: Order Comment: 1 Performed By: #### L 504.2610, L503.6550, L500.4050, L503.6030, L100.0100 #### [facility] [address] [place], [address] Sodium [Moles/Vol] 139 mmol/L Normal 136-145 [facility] Comment on above: Order Comment: 1 Performed By: #### L 504.2610, L503.6550, L500.4050, L503.6030, L100.0100 #### [facility] [address] [place], [address] T PROT 6.7 g/dL Normal 6.4-8.2 [facility] Comment on above: Order Comment: 1 Performed By: #### L 504.2610, L503.6550, L500.4050, L503.6030, L100.0100 #### [facility] [address] [place], [address] Urea nitrogen [Mass/Vol] 15 mg/dL Normal 7-18 [facility] Comment on above: Order Comment: 1 Performed By: #### L 504.2610, L503.6550, L500.4050, L503.6030, L100.0100 #### [facility] [address] [place], [address] Estimated glomerular filtrat ion rate (GFR) AmericanOrdered By: Jamie Marquez on 01-13-2024 Estimated GFR (MDRD) Amer 108 mL/min >60 [facility] Comment on above: GFR Calc Ferritinon 01-13-2024 Ferritin [Mass/Vol] 378 ng/mL Normal 26-388 [facility] Comment on above: Order Comment: 1 Performed By: #### L 504.2610, L503.6550, L500.4050, L503.6030, L100.0100 #### [facility] [address] [place], [address] Iron+Iron Binding Capacityon 01-13-2024 Iron [Mass/Vol] 48 ug/dL Low 65-175 [facility] Comment on above: Order Comment: 1 Performed By: #### L 504.2610, L503.6550, L500.4050, L503.6030, L100.0100 #### [facility] [address] [place], [address] IRON SATURATION 17.8 Normal 15.0-55.0 [facility] Comment on above: Order Comment: 1 Performed By: #### L 504.2610, L503.6550, L500.4050, L503.6030, L100.0100 #### [facility] [address] [place], [address] TIBC 270 ug/dL Normal 250-450 [facility] Comment on above: Order Comment: 1 Performed By: #### L 504.2610, L503.6550, L500.4050, L503.6030, L100.0100 #### [facility] [address] [place], [address] LDHon 01-13-2024 LDH 168 U/L Normal 87-241 [facility] Comment on above: Order Comment: 1 Performed By: #### L 504.2610, L503.6550, L500.4050, L503.6030, L100.0100 #### [facility] [address] [place], [place], [address] Oncology Visit Reporton 12-16 Oncology Visit Report [facility] [place] [address] [place] [address] OFFICE VISIT Date of Service: 01/13/24 1537 MR#: [id number] Acct: [id number] Name: AMPARO CANTU Rep #: [id number] : 1950 From: Jamie Marquez MD Age/Sex: 73/M Location: [facility] Status: Signed HPI Subjective Date of Service 01/13/24 Chief Complaint F/u for increased hemoglobin level. History of Present Illness 73y.o.man was found to have persistent increase in HGB and referred for further evaluation. Had JAK2 mutation done in 2022 which was negative. Had blood work showed persistent increase in Hgb. Had CT head for headaches on 10/03/2023 which showed chronic involutional changes. Ferritin was elevated, HGB normalized and comes for follow up. [facility] Medical History Low testosterone Gout Hypertension JORGE (obstructive sleep apnea) Acid reflux disease Psoriasis, guttate Elevated hemoglobin Surgical History Bilateral cataracts Biceps tendon tear History of hernia surgery H/O repair of left rotator cuff History of nasal surgery Family History Father , 82 Prostate cancer Brother , half brother Brain cancer Mother , 66 Heart disease valve replacement Social History housing: house current occupational status: retired Smoking Status: Former smoker quit date: 03/17/96 pack-years: 25 alcohol intake: former substance use type: does not use Intake Vital Signs 10/08/23 11:23 01/13/24 15:38 Height 5 ft 11.5 in 5 ft 11.5 in Weight: 101.378 kg BMI 30.7 BP 109/67 Blood Pressure Location Lt brachial Position Sitting Respiration 18 Pulse 76 Pulse Source Monitor Temp 98.7 F Temperature Source Temporal Artery Pulse Oximetry (%) 93 Oxygen Delivery Method room air Intake Is patient in pain?: No Allergies No Known Drug Allergies Allergy (Verified 01/13/24 15:41) none Medications ???Medication ???Instructions ???Recorded ???Confirmed ???Type hydrocortisone 2.5 % topical cream 1 applic topical BID PRN 09/10/23 01/13/24 History lisinopril 10 mg tablet 10 mg PO DAILY 09/10/23 01/13/24 History metronidazole 0.75 % topical cream 1 applic topical DAILY 09/10/23 01/13/24 History omeprazole 40 mg capsule,delayed 40 mg PO DAILY 09/10/23 01/13/24 History release fluticasone propionate 50 1 spray intranasal DAILY PRN 09/16/23 01/13/24 History mcg/actuation nasal spray,suspension vit C 250 mg-E 90 mg-zinc 40 1 tab PO QAM AND QPM 09/23/23 01/13/24 History mg-copper 1 yp-lvaccq-awnmyc chew tablet (PreserVision AREDS-2) vitamin E mixed 400 unit tablet 800 unit PO DAILY 01/13/24 01/13/24 History Have you fallen in the past year?: No Central Venous Access Central Venous Access: No Laboratory Results 01/13/24 09/16/23 09/16/23 15:02 10:38 10:10 WBC 8.1 7.4 Hgb 15.8 17.0 H Hct 47.3 52.3 Plt Count 190 201 Absolute Neuts (auto) 5.2 5.3 Absolute Lymphs (auto) 1.35 VBG Carboxyhemoglobin 1.2 Sodium 140 Potassium 4.6 Chloride 105 Carbon Dioxide 29.0 BUN 14 Creatinine 1.03 Glucose 109 H Calcium 9.5 Iron 48 L 87 TIBC 270 266 Iron Saturation 17.8 32.7 Erythropoietin 6.4 Ferritin 378 392 H Total Bilirubin 1.00 AST 17 ALT 28 Alkaline Phosphatase 42 L Lactate Dehydrogenase 192 Total Protein 7.2 Albumin 4.2 Globulin 3.0 Exam Physical Exam Const alert, oriented x3 and no apparent distress Coding Level of Care Code Off vis,est,level 3 Exam Problem Focused Diagnoses Polycythemia D75.1 Elevated ferritin R79.89 Low serum iron E61.1 Assessment and Plan Assessment and Plan (1) Polycythemia: Status: Resolved Comment: Discussed causes and evaluation of Polycythemia. Hgb was 15.8 today. Plan: To continue observation. (2) Elevated ferritin: Status: Resolved Comment: Ferritin 378 today Plan: To continue observation. Monitor Ferritin. (3) Low serum iron: Status: Acute Plan: To take Oral Iron 1-2 tabs a week. Recheck Iron profile in 3 months. Plan Details Follow Up: 3 Months Clinical Quality Measures Falls Risk Screening/Assistive Devices Have you fallen in the past year?: No 01/13/24 1606 Date Jamie Marquez MD [facility] Signature: Date (if applicable) CC: Dr. Nneka Chamorro MD Normal [facility] Elastography Parenchyma/Orga non 12-19-2023 Elastography Parenchyma/Organ [facility] [address] [place] [id number] Elastography Parenchyma/Organ MR#: [id number] Acct: [id number] Name: AMPARO CANTU Rep #: [id number] : 1950 M 73 From: Leander roth MD PCP: Dr. Nneka Chamorro MD Status: REG CL Study: Elastography Parenchyma/Organ Date of Exam: Exam# [id number] Ordering Dr: Scott Hernández DO [id number] STUDY: ABDOMINAL ULTRASOUND - ELASTOGRAPHY REASON FOR VISIT: Male, 73 years old. Fatty infiltration of the liver. TECHNIQUE: Liver stiffness measurements were obtained on a Skycheckin RS 85 ultrasound machine using a CA 1-7 probe following the SRU guidelines. 3 measurements were obtained using a 2-D-SWE method. TheIQR/M was 12% suggesting a quality data set. TECHNICAL QUALITY: Adequate. COMPARISON: None. FINDINGS: Liver: There is no demonstrated mass lesion. Median liver stiffness measured 9.2 kPa. Abdomen: There is no demonstrated mass lesion. US/Elastography Parenchyma/Organ IMPRESSION: Liver stiffness measures 9.2 kPa compatible with F2-F3 (Mild to moderate liver fibrosis) Metavir score. Electronically Signed: Leander Cordova MD at 13:24 EDT , CC: Dr. Nneka Chamorro MD; Scott Hernández, Roughener: Signed Normal [facility] ANCAon 12-18-2023 Cytoplasmic Ab Normal [facility] Comment on above: Order Comment: PLEAS E ADD A1C TO BLOOD DRAWN 09/01 PER USE 09/01 H115 Result Comment: TEST RESULTS LIMITS Antineutrophil Cytoplasmic Ab Cytoplasmic (C-ANCA) <1:20 titer Neg:<1:20 Perinuclear (P-ANCA) <1:20 titer Neg:<1:20 The presence of positive fluorescence exhibiting P-ANCA or C-ANCA patterns alone is not specific for the diagnosis of Fredis's Granulomatosis (WG) or microscopic polyangiitis. Decisions about treatment should not be based solely on ANCA IFA results. The International ANCA Group Consensus recommends follow up testing of positive sera with both AZ-3 and MPO-ANCA enzyme immunoassays. As many as 5% serum samples are positive only by EIA. Ref. AM J Clin Pathol 1999;111:507-513. Atypical pANCA <1:20 titer Neg:<1:20 The atypical pANCA pattern has been observed in a significant percentage of patients with ulcerative colitis, primary sclerosing cholangitis and autoimmune hepatitis. [facility]. ORIGINAL REPORT ON FILE IN LAB CONTAINS ADDITIONAL TEST SITE INFORMATION. Performed By: #### L 501.9985 #### [facility] [address] [facility]. [place], [place], [address] Aldolaseon 12-18-2023 ALDOLASE Normal [facility] Comment on above: Order Comment: IMAN Huerta ADD A1C TO BLOOD DRAWN 09/01 PER USE 09/01 H115 Result Comment: TEST RESULTS LIMITS Aldolase 5.4 U/L 3.3-10.3 TESTING PERFORMED AT [facility]. ORIGINAL REPORT ON FILE IN LAB CONTAINS ADDITIONAL TEST SITE INFORMATION. Performed By: #### L 501.9985 #### [facility] [address] [facility] [address] [place], [place], [address] Celiac Disease Profileon tTG IGA Normal [facility] Comment on above: Order Comment: YN Result Comment: TEST RESULTS LIMITS Celiac Disease Panel Endomysial Antibody IgA Negative Negative t-Transglutaminase (tTG) IgA <2 U/mL 0-3 Negative 0 - 3 Weak Positive 4 - 10 Positive >10 Tissue Transglutaminase (tTG) has been identified as the endomysial antigen. Studies have demonstr- ated that endomysial IgA antibodies have over 99% specificity for gluten sensitive enteropathy. TESTING PERFORMED AT [facility]. ORIGINAL REPORT ON FILE IN LAB CONTAINS ADDITIONAL TEST SITE INFORMATION. Performed By: #### L 504.2610, L503.6550, L500.4050, L503.6030, L100.0100 #### [facility] [address] [place], [address] Hemoglobinopathy Profileon 1 Hgb Solubility Normal [facility] Comment on above: Order Comment: IMAN Huerta ADD A1C TO BLOOD DRAWN 09/01 PER USE 09/01 H115 Result Comment: TEST RESULTS LIMITS Hgb Fractionation Ransom Hgb Fractionation by CE: Hgb F 0.0 % 0.0-2.0 Hgb A 97.6 % 96.4-98.8 Hgb A2 2.4 % 1.8-3.2 Hgb S 0.0 % 0.0 Interpretation: Normal hemoglobin present; no hemoglobin variant or beta thalassemia identified. Note: Alpha thalassemia may not be detected by the Hgb Fractionation Ransom panel. If alpha thalassemia is suspected, [facility] offers Alpha-Thalassemia DNA Analysis (#[id number]). TESTING PERFORMED AT [facility]. ORIGINAL REPORT ON FILE IN LAB CONTAINS ADDITIONAL TEST SITE INFORMATION. Performed By: #### L 501.9985 #### [facility] [address] [place], [address] Immunoglobulins G/A/M/Braden IMMUNOGLOB G QN Normal [facility] Comment on above: Order Comment: IMAN Huerta ADD A1C TO BLOOD DRAWN 09/01 PER USE 09/01 H1 Result Comment: TEST RESULTS LIMITS Immunoglobulins A/E/G/M, Serum Immunoglobulin G, Qn, Serum 743 mg/dL 603-1613 Immunoglobulin M, Qn, Serum 48 mg/dL 15-143 Immunoglobulin E, Total 2 Low IU/mL 6-495 TESTING PERFORMED AT [facility]. ORIGINAL REPORT ON FILE IN LAB CONTAINS ADDITIONAL TEST SITE INFORMATION. Performed By: #### L 501.9985 #### [facility] [address] [place], [address] Testosterone, Total / Freeon 12-18-2023 TESTOSTERONE, T Normal [facility] Comment on above: Order Comment: IMAN Huerta ADD A1C TO BLOOD DRAWN 09/01 PER USE 09/01 H115 Result Comment: TEST RESULTS LIMITS Testosterone, Free/Tot Equilib Testosterone 263 Low ng/dL 264-916 Adult male reference interval is based on a population of healthy nonobese males (BMI <30) between 19 and 39 years old. Bruno, et.al. JCEM 2017,102;6708-5740. PMID: 01095462. Testosterone,Free 7.13 ng/dL 5.00-21.00 % Free Testosterone 2.71 % 1.50-4.20 TESTING PERFORMED AT [facility]. ORIGINAL REPORT ON FILE IN LAB CONTAINS ADDITIONAL TEST SITE INFORMATION. Performed By: #### L 501.9985 #### [facility] [address] [place], [place], [id number] Aldosterone 24URon 10--202 4 ALDOSTERONE,U24 < 0.25 Normal 0.00-19.00 [facility] Comment on above: Order Comment: 1 Result Comment: Adul t Ranges Low Sodium Intake 20.00 - 80.00 Normal Sodium Intake 0.00 - 19.00 High Sodium Intake 0.00 - 12.00 Performed at: [address] [id number] Employment Program Representative: Simon Meza MD, Phone: [phone] Performed By: #### L 504.2610, L503.6550, L500.4050, L503.6030, L100.0100 #### [facility] [address] [place], [place], [address] ALDOSTERONE,UR < 2.50 Normal Not Estab. [facility] Comment on above: Order Comment: 1 Performed By: #### L 504.2610, L503.6550, L500.4050, L503.6030, L100.0100 #### [facility] [place], [address] MICHELE Comprehensive Panelon MICHELE TABLE Comment Normal . [facility] Comment on above: Result Comment: Auto antibody Disease Association Condition Frequency --------- Antinuclear Antibody, SLE, mixed connective Direct (MICHELE-D) tissue diseases --------- dsDNA SLE 40 - 60% --------- Chromatin Drug induced SLE 90% SLE 48 - 97% --------- SSA (Ro) SLE 25 - 35% Sjogren's Syndrome 40 - 70% Lupus 100% --------- SSB (La) SLE 10% Sjogren's Syndrome 30% --------- Sm (anti-Elena) SLE 15 - 30% --------- MACHINE ATTENDANT Mixed Connective Tissue Disease 95% (U1 nRNP, SLE 30 - 50% anti-ribonucleoprotein) Polymyositis and/or Dermatomyositis 20% --------- Scl-70 (antiDNA Scleroderma (diffuse) 20 - 35% topoisomerase) Crest 13% --------- Mary-1 Polymyositis and/or Dermatomyositis 20 - 40% --------- Centromere B Scleroderma - Crest variant 80% Performed at: [address] [id number] Employment Program Representative: Santiago Min PhD, Phone: [phone] Performed By: #### L 501.9985 #### [facility] [address] [place], [address] ANTI-CENT B AB <0.2 Normal 0.0-0.9 [facility] Comment on above: Performed By: #### L 501.9985 #### [facility] [address] [facility] [place], [address] ANTI-DNA (DS)AB <1 Normal 0-9 [facility] Comment on above: Result Comment: Nega tive <5 Equivocal 5 - 9 Positive >9 Performed By: #### L .85 #### [facility] [address] [place], [address] ANTI-MARY-1 <0.2 Normal 0.0-0.9 [facility] Comment on above: Performed By: #### L .9984 #### [facility] [address] [place], [address] ANTI-SS-A < 0.2 Normal 0.0-0.9 [facility] Comment on above: Performed By: #### L #### [facility] [address] [place], [address] ANTI-SS-B < 0.2 Normal 0.0-0.9 [facility] Comment on above: Performed By: #### L #### [facility] [address] [place], [address] ANTICHROMATIN <0.2 Normal 0.0-0.9 [facility] Comment on above: Performed By: #### L 85 #### [facility] [address] [place], [address] ANTISCLERODERM <0.2 Normal 0.0-0.9 [facility] Comment on above: Performed By: #### L 85 #### [facility] [address] [place], [address] MACHINE ATTENDANT Ab <0.2 Normal 0.0-0.9 [facility] Comment on above: Performed By: #### L 85 #### [facility] [address] [place], [address] ELENA Ab <0.2 Normal 0.0-0.9 [facility] Comment on above: Performed By: #### L 30 #### [facility] [address] [place], [address] CPK Total, Creatine Kinaseon 12-09-2023 CPK TOTAL 81 U/L Normal 39-308 [facility] Comment on above: Performed By: #### L 501.9985 #### [facility] [address] [place], [address] CRPon 12-09-2023 C-REACTIVE PROT 7.50 mg/L High 0.0-3.0 [facility] Comment on above: Result Comment: C-Re active Protein (CRP) provides useful information for the diagnosis, therapy and monitoring of inflammatory processes and associated diseases. For the evaluation of Relative Risk for Cardiovascular Disease, a High Sensitivity CRP (HSCRP) should be ordered. Performed By: #### L 501.9985 #### [facility] [address] [place], [address] Gastroenterology Visit Repor ton 12-09-2023 Gastroenterology Visit Report [facility] [address] [place] [address] OFFICE VISIT Date of Service: 12/09/23 MR#: [id number] Acct: [id number] Name: AMPARO CANTU Rep #: [id number] : 1950 Provider: Scott Hernández DO Age/Sex: 73/M Location[place] [facility] [place] Status: Signed Intake Vital Signs 10/08/23 11:23 Height 5 ft 11.5 in Weight: 221 lb 7 oz BMI 30.4 BP 116/73 Blood Pressure Location Lt brachial Position Sitting Respiration 18 Pulse 73 Pulse Source Monitor Temp 98.7 F Pulse Oximetry (%) 95 Oxygen Delivery Method room air Intake Visit Reasons: enlarged liver Allergies No Known Drug Allergies Allergy (Verified 10/08/23 11:25) none Medications ???Medication ???Instructions ???Recorded ???Confirmed ???Type hydrocortisone 2.5 % topical cream 1 applic topical BID PRN 09/10/23 12/09/23 History lisinopril 10 mg tablet 10 mg PO DAILY 09/10/23 12/09/23 History metronidazole 0.75 % topical cream 1 applic topical DAILY 09/10/23 12/09/23 History omeprazole 40 mg capsule,delayed 40 mg PO DAILY 09/10/23 12/09/23 History release fluticasone propionate 50 1 spray intranasal DAILY PRN 09/16/23 12/09/23 History mcg/actuation nasal spray,suspension vit C 250 mg-E 90 mg-zinc 40 1 tab PO QAM AND QPM 09/23/23 12/09/23 History mg-copper 1 jg-ayxoex-mqdezx chew tablet (PreserVision AREDS-2) Have you fallen in the past year?: No PFSH Medical History Low testosterone Gout Hypertension JORGE (obstructive sleep apnea) Acid reflux disease Psoriasis, guttate Elevated hemoglobin Surgical History Bilateral cataracts Biceps tendon tear History of hernia surgery H/O repair of left rotator cuff History of nasal surgery Family History Father , 82 Prostate cancer Brother , half brother Brain cancer Mother , 66 Heart disease valve replacement Social History housing: house current occupational status: retired Smoking Status: Former smoker quit date: 03/17/96 pack-years: 25 alcohol intake: former substance use type: does not use HPI HPI Details: AMPARO CANTU, is a 73 M who presents to the office today for initial consult. *BGI established 12.09.23 pt reports he was referred to I for chronically elevated hemoglobin and for an enlarged liver. Pt reports that he is not having any GI symptoms of concern at this time, does endorse that he occasionally loses his voice. Exam Const General: cooperative and comfortable Nutritional Appearance: average body habitus and well nourished [facility] Head: normal to inspection Ears: hearing grossly normal bilaterally Nose: external nose normal Face and sinus: normal facial exam Mouth: oral mucosae normal Throat: posterior oropharynx normal Eyes General: appearance normal, both eyes and all related structures Neck Neck: normal visual inspection Chest Chest palpation inspection: normal inspection of the chest and normal palpation of entire chest wall Resp Effort Inspection: normal respiratory effort Auscultation: Bilateral: Clear to Auscultation Cardio Palpation: normal PMI Rate: regular rate Rhythm: regular rhythm GI Inspection: normal to inspection Auscultation: normal bowel sounds Percussion: normal to percussion Palpation: no hepatosplenomegaly Skin General: no rashes or lesions noted Neuro General: patient alert Extrem General: normal to inspection Psych Affect: normal affect Assessment and Plan Assessment and Plan (1) Polycythemia: Status: Acute Comment: Discussed causes and evaluation of Polycythemia. Hgb was 17 with normal erythropoietin, normal Carboxyhemoglobin. Us abd showed hepatomegaly. (2) Elevated ferritin: Status: Acute Comment: Etiology unclear. Plan: Hyper ferritin anemia from unknown cause. Please transferrin saturation is not greater than 45% so he does not meet criteria for hereditary hemochromatosis. He is getting worked up for his secondary polycythemia being that his JAK2 mutation was normal and his erythropoietin level was normal and his carboxyhemoglobin was normal. (3) Hepatomegaly: Status: Acute Plan: Differential diagnosis for his hepatomegaly does include fatty liver disease. He has not had any alcohol. There is no family history of liver disease. He is without obese. His BMI is 30. I do not think he suffers from any infiltrative disease such as sarcoidosis amyloidosis or hemochromatosis. He would need blood work from the health [facility] we will also get a FibroScan to evaluate his liver stiffness. Orders: Orders Hemoglobinopathy P (more content not included)... Normal [facility] Oncology Visit Reporton 09-15 Oncology Visit Report [facility] [place] [facility] [address] [place] [address]. [place] [address] OFFICE VISIT Date of Service: 10/08/23 1121 MR#: [id number] Acct: [id number] Name: AMPARO CANTU Rep #: [id number] : 1950 From: Jamie Marquez MD Age/Sex: 73/M Location[place] [facility] [place] Status: Signed HPI Subjective Date of Service 10/08/23 Chief Complaint F/u for increased hemoglobin level. History of Present Illness 73y.o.man was found to have persistent increase in HGB and referred for further evaluation. Had JAK2 mutation done in 2022 which was negative. Had blood work showed persistent increase in Hgb. Had CT head for headaches and comes for follow up. [facility] Medical History Low testosterone Gout Hypertension JORGE (obstructive sleep apnea) Acid reflux disease Psoriasis, guttate Elevated hemoglobin Surgical History Bilateral cataracts Biceps tendon tear History of hernia surgery H/O repair of left rotator cuff History of nasal surgery Family History Father , 82 Prostate cancer Brother , half brother Brain cancer Mother , 66 Heart disease valve replacement Social History housing: house current occupational status: retired Smoking Status: Former smoker quit date: 03/17/96 pack-years: 25 alcohol intake: former substance use type: does not use Intake Vital Signs 09/23/23 11:26 10/08/23 11:23 Height 5 ft 11.5 in 5 ft 11.5 in Weight: 100.442 kg BMI 30.4 BP 116/73 Blood Pressure Location Lt brachial Position Sitting Respiration 18 Pulse 73 Pulse Source Monitor Temp 98.7 F Temperature Source Temporal Artery Pulse Oximetry (%) 95 Oxygen Delivery Method room air Intake Is patient in pain?: No Allergies No Known Drug Allergies Allergy (Verified 10/08/23 11:25) none Medications ???Medication ???Instructions ???Recorded ???Confirmed ???Type hydrocortisone 2.5 % topical cream 1 applic topical BID PRN 09/10/23 10/08/23 History lisinopril 10 mg tablet 10 mg PO DAILY 09/10/23 10/08/23 History metronidazole 0.75 % topical cream 1 applic topical DAILY 09/10/23 10/08/23 History omeprazole 40 mg capsule,delayed 40 mg PO DAILY 09/10/23 10/08/23 History release fluticasone propionate 50 1 spray intranasal DAILY PRN 09/16/23 10/08/23 History mcg/actuation nasal spray,suspension vit C 250 mg-E 90 mg-zinc 40 1 tab PO QAM AND QPM 09/23/23 10/08/23 History mg-copper 1 su-jwrxog-nqfixj chew tablet (PreserVision AREDS-2) Have you fallen in the past year?: No Central Venous Access Central Venous Access: No 10/03/[address]/Brain/Head W/WO Contrast IMPRESSION: Chronic involutional changes of the brain. Electronically Signed: Leander Cordova MD at 14:39 EDT Coding Level of Care Code Off vis,est,level 3 Exam Problem Focused Diagnoses Polycythemia D75.1 Chronic nonintractable headache, unspecified headache type R51.9; G89.29 Headache chronicity pattern: chronic headache Headache type: unspecified Intractability: not intractable Elevated ferritin R79.89 Assessment and Plan Assessment and Plan (1) Polycythemia: Status: Acute Comment: Discussed causes and evaluation of Polycythemia. Hgb was 17 with normal erythropoietin, normal Carboxyhemoglobin. Us abd showed hepatomegaly. Plan: To do observation. (2) Headache: Status: Chronic Qualifiers: Headache chronicity pattern: chronic headache Headache type: unspecified Intractability: not intractable Qualified Code(s): R51.9 - Headache, unspecified; G89.29 - Other chronic pain Comment: CT head on 10/03/2023 was negative. Plan: To do observation. (3) Elevated ferritin: Status: Acute Comment: Etiology unclear. Plan: To do observation. Monitor Ferritin. Orders: Orders CBC W/Diff, Automated 12/31/23 D75.1 - Secondary polycythemia Ferritin 12/31/23 D64.9 - Anemia, unspecified, D75.1 - Secondary polycythemia Iron+Iron Binding Capacity 12/31/23 D75.1 - Secondary polycythemia Comprehensive Metabolic Profil 12/31/23 D75.1 - Secondary polycythemia LDH 12/31/23 D75.1 - Secondary polycythemia Plan Details Follow Up: 3 Months Clinical Quality Measures Falls Risk Screening/Assistive Devices Have you fallen in the past year?: No 10/08/23 1718 Date Jamie Marquez MD Cosigner Signature: Date (if applicable) CC: Dr. Nneka Chamorro MD Normal [facility] Abdomen Completeon 4 Abdomen Complete [facility] [address] [place] [address] Abdomen Complete MR#: [id number] Acct: [id number] Name: AMPARO CANTU Rep #: [id number] : 1950 M 73 From: Leander roth MD PCP: Dr. Nneka Chamorro MD Status: [facility] Study: Abdomen Complete Date of Exam: 10/06/23 Exam# [id number] Ordering Dr: Jamie Marquez MD [id number] STUDY: ABDOMINAL ULTRASOUND REASON FOR EXAM: Male, 73 years old. POLYCYTHEMIA TECHNIQUE: Transabdominal ultrasound was performed with real-time and static masterson scale imaging. TECHNICAL QUALITY: Adequate. COMPARISON: None. FINDINGS: Liver: The liver is enlarged and measures 18.4 cm. There is normal echogenicity of the liver. The bile ducts are within normal limits. There is hepatic color flow. The direction of portal flow is hepatopetal. There is no demonstrated mass lesion. Gallbladder: Normal distended gallbladder. The gallbladder wall is thickened and measures 6 mm. There is a negative sonographic Cabrera''s sign. There is no pericholecystic fluid. There are multiple echogenic structures within the gallbladder, consistent with multiple gallstones. Common Bile Duct (C.B.D.): The common bile duct measures 4 mm. Pancreas: Normal size of the head, body and tail of the pancreas. There is normal echogenicity of the pancreas. There is no demonstrated pancreatic mass or cyst. Spleen: Normal size of the spleen. The spleen measures 10.4 cm x 5.2 cm x 5.8 cm. Right Kidney: Normal size of the right kidney. The right kidney measures 11.2 cm x 6.2 cm x 4.7 cm. Normal renal cortex. The right cortex measures 1.6 cm. There is no demonstrated renal mass or cyst. There is no right hydronephrosis. Left Kidney: Normal size of the left kidney. The left kidney measures 11.7 cm x 4.8 cm x 6.2 cm. Normal renal cortex. The left cortex measures 1.8 cm. There is no demonstrated renal mass or cyst. There is no left hydronephrosis. Aorta: Unremarkable I.V.C.: The IVC is patent. There is no ascites. US/Abdomen Complete IMPRESSION: Multiple gallstones. Thickened gallbladder wall. Electronically Signed: Leander Cordova MD at 8:09 EDT Reading Location ID and State: [facility] / [place] , Service support , CC: Dr. Nneka Chamorro MD; Dr. Jamie Marquez MD Roughener: Signed Normal [facility] Brain/Head W/WO Contraston 0 10-03-2023 Brain/Head W/WO Contrast [facility] Imaging Services [address] [place] [address] Brain/Head W/WO Contrast MR#: [id number] Acct: [id number] Name: AMPARO CANTU Rep #: [id number] : 1950 M 73 From: Leander roth MD PCP: Dr. Nneka Chamorro MD Status: [facility] Study: Brain/Head W/WO Contrast Date of Exam: 4 Exam# [id number] Ordering Dr: Jamie Marquez MD [id number] STUDY: CT BRAIN WITH AND WITHOUT CONTRAST REASON FOR EXAM: Male, 73 years old. One year history of intermittent headaches. Hypertension. RADIATION DOSAGE (If Supplied By Facility): CTDIvol = ( 44.99 ) mGy, DLP = ( 1682.21 ) mGycm TECHNIQUE: Transaxial CT imaging of the brain was performed pre and post contrast administration. The examination was performed with intravenous administration of IV 50mL Isovue-300. Individualized dose optimization techniques were used for this CT. COMPARISON: None. FINDINGS: Normal soft tissue structures. Normal calvarium. There is mild cerebral atrophy with widening of the extra-axial spaces and ventricular dilatation. Normal white matter tracts of the cerebral hemispheres. Normal basal ganglia and thalami. Normal brainstem. Normal cerebellum. There is no intracranial hemorrhage. There are no findings of an acute ischemic infarction. Normal visualized paranasal sinuses. CT/Brain/Head W/WO Contrast IMPRESSION: Chronic involutional changes of the brain. Electronically Signed: Leander Cordova MD at 14:39 EDT Reading Location ID and State: [facility] / [place] , Service support , CC: Dr. Nneka Chamorro MD; Dr. Jamie Marquez MD Roughener: Signed Normal [facility] Chest PA and Lateralon 09-22 Chest PA and Lateral [facility] Imaging Services [address] [place] [address] Chest PA and Lateral MR#: [id number] Acct: [id number] Name: AMPARO CANTU Rep #: [id number] : 1950 M 73 From: Jan clark DO PCP: Dr. Nneka Chamorro MD Status: [facility] Study: Chest PA and Lateral Date of Exam: 09/23/23 Exam# [id number] Ordering Dr: Jamie Marquez MD [id number] EXAM: XR CHEST, 2 VIEWS CLINICAL INDICATION: SMOKING HISTORY OF 27 YEARS TECHNIQUE: Frontal and lateral views of the chest. COMPARISON: 03/22/2008 FINDINGS: LUNGS AND PLEURAL SPACES: Hyperinflated lungs with diffuse interstitial prominence. Minimal bibasilar atelectasis or scarring. No definite focal pneumonia. No pneumothorax. No effusion. HEART: No significant abnormality. Cardiac silhouette not enlarged. MEDIASTINUM: Central airways and mediastinal contour are unremarkable. BONES/JOINTS: Degenerative changes in the spine and shoulders. No acute fracture. SOFT TISSUES: No significant abnormality. VASCULATURE: Atherosclerosis. RAD/Chest PA and Lateral IMPRESSION: No focal pneumonia. Findings likely indicative of COPD. Consider low dose CT for lung cancer screening between the ages of 50 and 77. Electronically Signed: Jan Rivera DO at 23:58 EDT , CC: Dr. Nneka Chamorro MD; Dr. Jamie Marquez MD Roughener: Signed Normal [facility] Oncology Visit Reporton Oncology Visit Report [facility] [place] [address] OFFICE VISIT Date of Service: 09/23/23 1120 MR#: [id number] Acct: [id number] Name: AMPARO CANTU Rep #: [id number] : 1950 From: Jamie Marquez MD Age/Sex: 73/M Location: [facility] Status: Signed HPI Subjective Date of Service 09/23/23 Chief Complaint F/u for increased hemoglobin level. History of Present Illness 73y.o.man was found to have persistent increase in HGB and referred for further evaluation. Had JAK2 mutation done in 2022 which was negative. Had blood work done and comes for follow up. Still getting light headaches on and off, no clots, fever, night sweat or weight loss. [facility] Medical History Low testosterone Gout Hypertension JORGE (obstructive sleep apnea) Acid reflux disease Psoriasis, guttate Elevated hemoglobin Surgical History Bilateral cataracts Biceps tendon tear History of hernia surgery H/O repair of left rotator cuff History of nasal surgery Family History Father , 82 Prostate cancer Brother , half brother Brain cancer Mother , 66 Heart disease valve replacement Social History housing: house current occupational status: retired Smoking Status: Former smoker quit date: 03/17/96 pack-years: 25 alcohol intake: former substance use type: does not use Intake Vital Signs 09/16/23 09:20 09/23/23 11:21 09/23/23 11:26 Height 5 ft 11.5 in 5 ft 11.5 in 5 ft 11.5 in Weight: 102.767 kg 102.285 kg BMI 31.1 31.0 BP 114/70 Blood Pressure Location Lt brachial Position Sitting Respiration 18 Pulse 71 Pulse Source Monitor Temp 98.6 F Temperature Source Temporal Artery Pulse Oximetry (%) 95 Oxygen Delivery Method room air Intake Is patient in pain?: No Allergies No Known Drug Allergies Allergy (Verified 09/23/23 11:25) none Medications ???Medication ???Instructions ???Recorded ???Confirmed ???Type hydrocortisone 2.5 % topical cream 1 applic topical BID PRN 09/10/23 09/23/23 History lisinopril 10 mg tablet 10 mg PO DAILY 09/10/23 09/23/23 History metronidazole 0.75 % topical cream 1 applic topical DAILY 09/10/23 09/23/23 History omeprazole 40 mg capsule,delayed 40 mg PO DAILY 09/10/23 09/23/23 History release fluticasone propionate 50 1 spray intranasal DAILY PRN 09/16/23 09/23/23 History mcg/actuation nasal spray,suspension vit C 250 mg-E 90 mg-zinc 40 1 tab PO QAM AND QPM 09/23/23 09/23/23 History mg-copper 1 qt-[id number]-iahdqn chew tablet (PreserVision AREDS-2) Have you fallen in the past year?: No Central Venous Access Central Venous Access: No Laboratory Results 09/16/23 09/16/23 10:38 10:10 WBC 7.4 Hgb 17.0 H Hct 52.3 Plt Count 201 Absolute Neuts (auto) 5.3 Absolute Lymphs (auto) 1.35 VBG Carboxyhemoglobin 1.2 Sodium 140 Potassium 4.6 Chloride 105 Carbon Dioxide 29.0 BUN 14 Creatinine 1.03 Glucose 109 H Calcium 9.5 Iron 87 TIBC 266 Iron Saturation 32.7 Erythropoietin 6.4 Ferritin 392 H Total Bilirubin 1.00 AST 17 ALT 28 Alkaline Phosphatase 42 L Lactate Dehydrogenase 192 Total Protein 7.2 Albumin 4.2 Globulin 3.0 Exam Physical Exam Const alert, oriented x3 and no apparent distress Coding Level of Care Code Off vis,est,level 3 Exam Problem Focused Diagnoses Polycythemia D75.1 Chronic nonintractable headache, unspecified headache type R51.9; G89.29 Headache type: unspecified Headache chronicity pattern: chronic headache Intractability: not intractable Elevated ferritin R79.89 Assessment and Plan Assessment and Plan (1) Polycythemia: Status: Acute Comment: Discussed causes and evaluation of Polycythemia. Hgb was 17 with normal erythropoietin, normal Carboxyhemoglobin. Plan: To obtain US abdomen and Liver elastography, (2) Headache: Status: Acute Qualifiers: Headache type: unspecified Headache chronicity pattern: chronic headache Intractability: not intractable Qualified Code(s): R51.9 - Headache, unspecified; G89.29 - Other chronic pain Comment: Comes on mostly in the mornings Plan: To obtain CT head with/without contrast. (3) Elevated ferritin: Status: Acute Comment: R/O liver disease. Plan: To obtain US abd/pelvis, Liver elastography Plan Details Follow Up: 2 Weeks Clinical Quality Measures Falls Risk Screening/Assistive Devices Have you fallen in the past year?: No 09/23/23 1153 Date (more content not included)... Normal [facility] Erythropoietinon 09-17-2023 ERYTHROPOIETIN 6.4 mIU/mL Normal 2.6-18.5 [facility] Comment on above: Result Comment: [employer] DxI 800 Immunoassay System Values obtained with different assay methods or kits cannot be used interchangeably. Results cannot be interpreted as absolute evidence of the presence or absence of malignant disease. Performed at: [address] [id number] Employment Program Representative: Santiago Min PhD, Phone: [phone] Performed By: #### L 504.2610, L503.6550, L500.4050, L503.6030, L100.0100 #### [facility] [address] [place], [address] Blood carboxyhemoglobin audelia urement (mass/volume)Ordered By: Jamie Marquez on 09-16-2023 Carboxyhemoglobin (Bld) [Mass/Vol] 1.2 % 0.0-1.5 [facility] CBC W/Diff, Automatedon Absolute Lymph 1.35 X10 3/uL Normal 0.83-4.51 [facility] Comment on above: Performed By: #### L 504.2610, L503.6550, L500.4050, L503.6030, L100.0100 #### [facility] [address] [place], [address] Absolute Neut 5.3 X10 3/uL Normal 2.0-7.7 [facility] Comment on above: Performed By: #### L 504.2610, L503.6550, L500.4050, L503.6030, L100.0100 #### [facility] [address] [place], [address] Basophils/100 WBC (Bld) 0.5 % Normal 0-1 [facility] Comment on above: Performed By: #### L 504.2610, L503.6550, L500.4050, L503.6030, L100.0100 #### [facility] [address] [place], [address] Eosinophils/100 WBC (Bld) 2.0 % Normal 0-5 [facility] Comment on above: Performed By: #### L 504.2610, L503.6550, L500.4050, L503.6030, L100.0100 #### [facility] [address] [place], [address] Erythrocyte distribution width (RBC) [Ratio] 13.3 % Normal 11.6-14.6 [facility] Comment on above: Performed By: #### L 504.2610, L503.6550, L500.4050, L503.6030, L100.0100 #### [facility] [address] [place], [address] Hematocrit (Bld) [Volume fraction] 52.3 % Normal 40-54 [facility] Comment on above: Performed By: #### L 504.2610, L503.6550, L500.4050, L503.6030, L100.0100 #### [facility] [address] [place], [address] Hemoglobin (Bld) [Mass/Vol] 17.0 g/dL High 13.0-16.5 [facility] Comment on above: Performed By: #### L 504.2610, L503.6550, L500.4050, L503.6030, L100.0100 #### [facility] [address] [place], [address] IG% 0.300 Normal 0.0-0.9 [facility] Comment on above: Result Comment: IG% - Immature Granulocytes (promyelocytes, myelocytes and metamyelocytes) > 1% indicates that a LEFT SHIFT is Present. Performed By: #### L 504.2610, L503.6550, L500.4050, L503.6030, L100.0100 #### [facility] [address] [place], [address] Lymphocytes/100 WBC (Bld) 18.2 % Low 19-41 [facility] Comment on above: Performed By: #### L 504.2610, L503.6550, L500.4050, L503.6030, L100.0100 #### [facility] [address] [place], [address] MCH (RBC) [Entitic mass] 28.5 pg Normal 27.0-32.0 [facility] Comment on above: Performed By: #### L 504.2610, L503.6550, L500.4050, L503.6030, L100.0100 #### [facility] [address] [place], [address] MCHC (RBC) [Mass/Vol] 32.5 g/dL Normal 32-36 [facility] Comment on above: Performed By: #### L 504.2610, L503.6550, L500.4050, L503.6030, L100.0100 #### [facility] [address] [place], [address] MCV (RBC) [Entitic vol] 87.6 fL Normal 80-94 [facility] Comment on above: Performed By: #### L 504.2610, L503.6550, L500.4050, L503.6030, L100.0100 #### [facility] [address] [place], [address] Monocytes/100 WBC (Bld) 7.0 % Normal 0-10 [facility] Comment on above: Performed By: #### L 504.2610, L503.6550, L500.4050, L503.6030, L100.0100 #### [facility] [address] [place], [address] Neutrophils/100 WBC (Bld) 72.0 % High 47-70 [facility] Comment on above: Performed By: #### L 504.2610, L503.6550, L500.4050, L503.6030, L100.0100 #### [facility] [address] [place], [address] Nucleated RBC (Bld) [#/Vol] 0 10*3/uL Normal 0-5 [facility] Comment on above: Performed By: #### L 504.2610, L503.6550, L500.4050, L503.6030, L100.0100 #### [facility] [address] [place], [address] Platelet mean volume (Bld) [Entitic vol] 10.6 fL Normal 6.2-12.0 [facility] Comment on above: Performed By: #### L 504.2610, L503.6550, L500.4050, L503.6030, L100.0100 #### [facility] [address] [place], [address] Platelets (Bld) [#/Vol] 201 10*3/uL Normal 150-450 [facility] Comment on above: Performed By: #### L 504.2610, L503.6550, L500.4050, L503.6030, L100.0100 #### [facility] [address] [place], [address] RBC (Bld) [#/Vol] 5.97 10*6/uL Normal 4.6-6.2 [facility] Comment on above: Performed By: #### L 504.2610, L503.6550, L500.4050, L503.6030, L100.0100 #### [facility] [address] [place], [address] RDW SD 42.6 fl Normal 35.1-43.9 [facility] Comment on above: Performed By: #### L 504.2610, L503.6550, L500.4050, L503.6030, L100.0100 #### [facility] [address] [place], [address] WBC (Bld) [#/Vol] 7.4 10*3/uL Normal 4.4-11.0 [facility] Comment on above: Performed By: #### L 504.2610, L503.6550, L500.4050, L503.6030, L100.0100 #### [facility] [address] [place], [address] CRPon 09-16-2023 C-REACTIVE PROT < 2.90 Normal 0.0-3.0 [facility] Comment on above: Result Comment: C-Re active Protein (CRP) provides useful information for the diagnosis, therapy and monitoring of inflammatory processes and associated diseases. For the evaluation of Relative Risk for Cardiovascular Disease, a High Sensitivity CRP (HSCRP) should be ordered. Performed By: #### L 504.2610, L503.6550, L500.4050, L503.6030, L100.0100 #### [facility] [address] [place], [address] Carboxyhemoglobin (Bld) [Mas s/Vol]Ordered By: Jamie Marquez on 09-16-2023 Venous Blood Carboxyhemoglobin 1.2 % 0.0-1.5 [facility] Comprehensive Metabolic Prof ilon 09-16-2023 Albumin [Mass/Vol] 4.2 g/dL Normal 3.2-5.0 [facility] Comment on above: Performed By: #### L 504.2610, L503.6550, L500.4050, L503.6030, L100.0100 #### [facility] [address] [place], [address] Albumin/Globulin [Mass ratio] 1.4 {ratio} Normal 0.9-2.4 [facility] Comment on above: Performed By: #### L 504.2610, L503.6550, L500.4050, L503.6030, L100.0100 #### [facility] [address] [place], [address] ALK P 42 U/L Low 45-117 [facility] Comment on above: Performed By: #### L 504.2610, L503.6550, L500.4050, L503.6030, L100.0100 #### [facility] [address] [place], [address] ALT [Catalytic activity/Vol] 28 U/L Normal 16-61 [facility] Comment on above: Performed By: #### L 504.2610, L503.6550, L500.4050, L503.6030, L100.0100 #### [facility] [address] [place], [address] AST [Catalytic activity/Vol] 17 U/L Normal 15-37 [facility] Comment on above: Performed By: #### L 504.2610, L503.6550, L500.4050, L503.6030, L100.0100 #### [facility] [address] [place], [address] Bilirubin [Mass/Vol] 1.00 mg/dL Normal 0.20-1.00 [facility] Comment on above: Result Comment: For patients on eltrombopag therapy, use of Dimension [place] TBIL is not recommended. Performed By: #### L 504.2610, L503.6550, L500.4050, L503.6030, L100.0100 #### [facility] [address] [place], [address] BUN/CRE 13.6 RATIO Normal 10-20 [facility] Comment on above: Performed By: #### L 504.2610, L503.6550, L500.4050, L503.6030, L100.0100 #### [facility] [address] [place], [address] CA,Total 9.5 mg/dL Normal 8.5-10.1 [facility] Comment on above: Performed By: #### L 504.2610, L503.6550, L500.4050, L503.6030, L100.0100 #### [facility] [address] [place], [address] Chloride [Moles/Vol] 105 mmol/L Normal 98-107 [facility] Comment on above: Performed By: #### L 504.2610, L503.6550, L500.4050, L503.6030, L100.0100 #### [facility] [address] [place], [address] CO2 [Moles/Vol] 29.0 mmol/L Normal 21.0-32.0 [facility] Comment on above: Performed By: #### L 504.2610, L503.6550, L500.4050, L503.6030, L100.0100 #### [facility] [address] [place], [address] Creatinine [Mass/Vol] 1.03 mg/dL Normal 0.70-1.30 [facility] Comment on above: Result Comment: The validity of the calculated GFR GFRAA in patients over 70 years has not been determined. Clinical correlation is essential. Performed By: #### L 504.2610, L503.6550, L500.4050, L503.6030, L100.0100 #### [facility] [address] [place], [address] EST GFR - AA 92 mL/min Normal >60 [facility] Comment on above: Result Comment: Afri can Barbadian GFR Calc Performed By: #### L 504.2610, L503.6550, L500.4050, L503.6030, L100.0100 #### [facility] [address] [place], [address] GAP 6 Normal 5-15 [facility] Comment on above: Performed By: #### L 504.2610, L503.6550, L500.4050, L503.6030, L100.0100 #### [facility] [address] [place], [address] GFR/1.73 sq M.predicted among non-blacks MDRD (S/P/Bld) [Vol rate/Area] 76 mL/min/{1.73_m2} Normal >60 [facility] Comment on above: Result Comment: Non- GFR Calc Performed By: #### L 504.2610, L503.6550, L500.4050, L503.6030, L100.0100 #### [facility] [address] [place], [address] Globulin (S) [Mass/Vol] 3.0 g/dL Normal 2.2-4.2 [facility] Comment on above: Performed By: #### L 504.2610, L503.6550, L500.4050, L503.6030, L100.0100 #### [facility] [address] [place], [address] Glucose [Mass/Vol] 109 mg/dL High 74-106 [facility] Comment on above: Result Comment: Fast ing Glucose result from 100 to 125 mg/dL suggests IMPAIRED HOMEOSTASIS per A.D.A. criteria. Performed By: #### L 504.2610, L503.6550, L500.4050, L503.6030, L100.0100 #### [facility] [address] [place], [address] Potassium [Moles/Vol] 4.6 mmol/L Normal 3.5-5.1 [facility] Comment on above: Performed By: #### L 504.2610, L503.6550, L500.4050, L503.6030, L100.0100 #### [facility] [address] [place], [address] Sodium [Moles/Vol] 140 mmol/L Normal 136-145 [facility] Comment on above: Performed By: #### L 504.2610, L503.6550, L500.4050, L503.6030, L100.0100 #### [facility] [address] [place], [address] T PROT 7.2 g/dL Normal 6.4-8.2 [facility] Comment on above: Performed By: #### L 504.2610, L503.6550, L500.4050, L503.6030, L100.0100 #### [facility] [address] [place], [address] Urea nitrogen [Mass/Vol] 14 mg/dL Normal 7-18 [facility] Comment on above: Performed By: #### L 504.2610, L503.6550, L500.4050, L503.6030, L100.0100 #### [facility] [address] [place], [address] Erythrocyte Sed Rateon 09-15 SED RATE < 1 Normal 0-20 [facility] Comment on above: Performed By: #### L 504.2610, L503.6550, L500.4050, L503.6030, L100.0100 #### [facility] [address] [place], [address] Erythropoietin (EPO) QnOrder ed By: Jamie Marquez on 09-16-2023 Erythropoietin 6.4 mIU/mL 2.6-18.5 [facility] Comment on above: [employer] DxI 800 Immunoassay SystemValues obtained with different assay methods or kits cannotbe used interchangeably. Results cannot be interpreted asabsolute evidence of the presence or absence of malignantdisease.Performed at: [address], [place], [place] [id number] Director: Santiago Min PhD, Phone: [phone] Ferritinon 09-16-2023 Ferritin [Mass/Vol] 392 ng/mL High 26-388 [facility] Comment on above: Order Comment: 1 Performed By: #### L 504.2610, L503.6550, L500.4050, L503.6030, L100.0100 #### [facility] [address] [place], [address] Hemoglobin (Reticulocytes) [ Entitic mass]Ordered By: Jamie Jimmy on 09-16-2023 Reticulocyte Hemoglobin Equivalent 32.8 pg 30-35 [facility] Immature reticulocyte fracti onOrdered By: Jamie Marquez on 09-16-2023 Immature Reticulocyte Fraction 13.30 % 3.00-15.90 [facility] Iron+Iron Binding Capacityon 09-16-2023 Iron [Mass/Vol] 87 ug/dL Normal 65-175 [facility] Comment on above: Performed By: #### L 504.2610, L503.6550, L500.4050, L503.6030, L100.0100 #### [facility] [address] [place], [address] IRON SATURATION 32.7 Normal 15.0-55.0 [facility] Comment on above: Performed By: #### L 504.2610, L503.6550, L500.4050, L503.6030, L100.0100 #### [facility] [address] [place], [address] TIBC 266 ug/dL Normal 250-450 [facility] Comment on above: Performed By: #### L 504.2610, L503.6550, L500.4050, L503.6030, L100.0100 #### [facility] [address] [place], [address] L501.2276on 09-16-2023 Ionized Calcium 5.05 mg/dL Normal 4.36-5.20 [facility] Comment on above: Order Comment: RAN B Y MISTAKE. Result Comment: RAN BY MISTAKE. Performed By: #### L 504.2610, L503.6550, L500.4050, L503.6030, L100.0100 #### [facility] [address] [place], [address] L511.0135on 09-16-2023 COHb 1.2 Normal 0.0-1.5 [facility] Comment on above: Performed By: #### L 511.0135 #### [facility] [address] [place], [address] LDHon 09-16-2023 LDH 192 U/L Normal 87-241 [facility] Comment on above: Order Comment: 1 Performed By: #### L 504.2610, L503.6550, L500.4050, L503.6030, L100.0100 #### [facility] [address] [place], [address] Oncology Visit Reporton Oncology Visit Report [facility] [address] [place] [address] OFFICE VISIT Date of Service: 09/16/23912 MR#: [id number] Acct: [id number] Name: AMPARO CANTU Rep #: [id number] : 1950 From: Jamie Marquez MD Age/Sex: 73/M Location: [facility] Status: Signed HPI Subjective Date of Service 09/16/23 Chief Complaint Referred for increased hemoglobin level. History of Present Illness 73y.o.man was found to have persistent increase in HGB and referred for further evaluation. Had JAK2 mutation done in 2022 which was negative. Gets light headaches on and off, no clots, fever, night sweat or weight loss. [facility] Medical History (Updated 09/16/23 @ 09:[address] Jamie Marquez MD) Low testosterone Gout Hypertension JORGE (obstructive sleep apnea) Acid reflux disease Psoriasis, guttate Elevated hemoglobin Surgical History (Updated 09/16/23 @ 09:17 by Millicent Galdamez LPN) Bilateral cataracts Biceps tendon tear History of hernia surgery H/O repair of left rotator cuff History of nasal surgery Family History Father , 82 Prostate cancer Brother , half brother Brain cancer Mother , 66 Heart disease valve replacement Social History housing: house current occupational status: retired Smoking Status: Former smoker quit date: 03/17/96 pack-years: 25 alcohol intake: former substance use type: does not use ROS Constitutional Constitutional: Reports systems reviewed and no addt'l complaints, except as documented Eyes Eyes: Reports systems reviewed and no addt'l complaints, except as documented ENT HEENT: Reports systems reviewed and no addt'l complaints, except as documented Cardiovascular Cardiovascular: Reports systems reviewed and no addt'l complaints, except as documented Respiratory/Chest Respiratory/Chest: Reports systems reviewed and no addt'l complaints, except as documented Gastrointestinal Gastrointestinal: Reports systems reviewed and no addt'l complaints, except as documented Genitourinary Genitourinary: Reports systems reviewed and no addt'l complaints, except as documented Musculoskeletal Musculoskeletal: Reports systems reviewed and no addt'l complaints, except as documented Integumentary Integumentary: Reports systems reviewed and no addt'l complaints, except as documented Neurologic Neurologic: Reports systems reviewed and no addt'l complaints, except as documented Psychiatric Psychiatric: Reports systems reviewed and no addt'l complaints, except as documented Endocrine Endocrinology: Reports systems reviewed and no addt'l complaints, except as documented Hematologic/Lymphatic Hematologic/Lymphatic: Reports systems reviewed and no addt'l complaints, except as documented Allergic/Immunologic Allergic/Immunologic: Reports systems reviewed and no addt'l complaints, except as documented Intake Vital Signs 09/16/23 09:17 09/16/23 09:20 Height 5 ft 11.5 in 5 ft 11.5 in Weight: 102.767 kg 102.767 kg BMI 31.1 31.1 BP 106/66 Blood Pressure Location Lt brachial Position Sitting Respiration 18 Pulse 74 Pulse Source Monitor Temp 98 F Temperature Source Temporal Artery Pulse Oximetry (%) 93 Oxygen Delivery Method room air Intake Is patient in pain?: No Allergies No Known Drug Allergies Allergy (Verified 09/16/23 09:15) none Medications ???Medication ???Instructions ???Recorded ???Confirmed ???Type hydrocortisone 2.5 % topical cream 1 applic topical BID PRN 09/10/23 09/16/23 History lisinopril 10 mg tablet 10 mg PO DAILY 09/10/23 09/16/23 History metronidazole 0.75 % topical cream 1 applic topical DAILY 09/10/23 09/16/23 History omeprazole 40 mg capsule,delayed 40 mg PO DAILY 09/10/23 09/16/23 History release fluticasone propionate 50 1 spray intranasal DAILY PRN 09/16/23 09/16/23 History mcg/actuation nasal spray,suspension Have you fallen in the past year?: No Central Venous Access Central Venous Access: No Exam Physical Exam Const alert, oriented x3 and no apparent distress HEENT normocephalic, external ears normal and external nose normal Eyes no scleral icterus Neck supple Lymph Lymphatic: no lymphadenopathy noted Chest inspection of chest normal Resp normal respiratory effort and clear to auscultation bilaterally Cardio regular rate, regular rhythm, S1 normal heart sound and S2 normal heart sound GI normal to inspection, nondistended, normoactive bowel sounds no CVA tenderness Back/Spine no CVA tenderness Extremity normal to inspection, no joint enlargement and no clubbing, cyanosis or edema Skin no rashes or lesions noted Neuro oriented x3, CN' (more content not included)... Normal [facility] Retic Panelon 09-16-2023 IM RET FRACTION 13.30 Normal 3.00-15.90 [facility] Comment on above: Performed By: #### L 504.2610, L503.6550, L500.4050, L503.6030, L100.0100 #### [facility] [address] [place], [address] RET-HE 32.8 pg Normal 30-35 [facility] Comment on above: Performed By: #### L 504.2610, L503.6550, L500.4050, L503.6030, L100.0100 #### [facility] [address] [place], [address] Retic Count 1.19 Normal 0.5-1.5 [facility] Comment on above: Performed By: #### L 504.2610, L503.6550, L500.4050, L503.6030, L100.0100 #### [facility] [address] [place], [address] Reticulocyte hemoglobin equi valent (RET-He) measurementOrdered By: Jamie Marquez on 09-16-2023 Hemoglobin (Reticulocytes) [Entitic mass] 32.8 pg 30-35 [facility] Reticulocytes Auto (Bld) [#/ Vol]Ordered By: Jamie Marquez on 09-16-2023 Reticulocyte Count 1.19 % 0.5-1.5 [facility] Reticulocytes/100 RBC (Bld) 1.19 % 0.5-1.5 [facility] Serum or plasma erythropoiet in (EPO) measurement (units/volume)Ordered By: Jamie Marquez on 09-16-2023 Erythropoietin (EPO) Qn 6.4 mIU/mL 2.6-18.5 [facility] Comment on above: [employer] Uni[employer] el DxI 800 Immunoassay SystemValues obtained with different assay methods or kits cannotbe used interchangeably. Results cannot be interpreted asabsolute evidence of the presence or absence of malignantdisease.Performed at: [address] [id number] Director: Santiago Min PhD, Phone: [phone] Hemoglobin A1con 09-05-2023 HbA1c (Bld) [Mass fraction] 5.6 % Normal 3.8-5.6 [facility] Comment on above: Order Comment: IMAN Huerta ADD A1C TO BLOOD DRAWN 09/01 PER USE 09/01 H115 Result Comment: Norm al < 5.7 % Prediabetic 5.7 - 6.4 % Diabetic >or= 6.5 % Please note range changes. Performed By: #### L 267.3588 #### [facility] [address] [place], [address] CBC-Complete Blood Cnt No Di ffon 09-02-2023 Erythrocyte distribution width (RBC) [Ratio] 13.1 % Normal 11.6-14.6 [facility] Comment on above: Order Comment: Order Date: 09/01/23Order Info: [id number] - CBC Performed By: #### L 504.2610, L503.6550, L500.4050, L503.6030, L100.0100 #### [facility] [address] [place], [address] Hematocrit (Bld) [Volume fraction] 53.4 % Normal 40-54 [facility] Comment on above: Order Comment: Order Date: 09/01/23Order Info: [id number] - CBC Performed By: #### L 504.2610, L503.6550, L500.4050, L503.6030, L100.0100 #### [facility] [address] [place], [address] Hemoglobin (Bld) [Mass/Vol] 17.3 g/dL High 13.0-16.5 [facility] Comment on above: Order Comment: Order Date: 09/01/23Order Info: [id number] - CBC Performed By: #### L 504.2610, L503.6550, L500.4050, L503.6030, L100.0100 #### [facility] [address] [place], [address] MCH (RBC) [Entitic mass] 28.5 pg Normal 27.0-32.0 [facility] Comment on above: Order Comment: Order Date: 09/01/23Order Info: [id number] - CBC Performed By: #### L 504.2610, L503.6550, L500.4050, L503.6030, L100.0100 #### [facility] [address] [place], [address] MCHC (RBC) [Mass/Vol] 32.4 g/dL Normal 32-36 [facility] Comment on above: Order Comment: Order Date: 09/01/23Order Info: [id number] - CBC Performed By: #### L 504.2610, L503.6550, L500.4050, L503.6030, L100.0100 #### [facility] [address] [place], [address] MCV (RBC) [Entitic vol] 88.0 fL Normal 80-94 [facility] Comment on above: Order Comment: Order Date: 09/01/23Order Info: [id number] - CBC Performed By: #### L 504.2610, L503.6550, L500.4050, L503.6030, L100.0100 #### [facility] [address] [place], [address] Platelet mean volume (Bld) [Entitic vol] 10.2 fL Normal 6.2-12.0 [facility] Comment on above: Order Comment: Order Date: 09/01/23Order Info: [id number] - CBC Performed By: #### L 504.2610, L503.6550, L500.4050, L503.6030, L100.0100 #### [facility] [address] [place], [address] Platelets (Bld) [#/Vol] 195 10*3/uL Normal 150-450 [facility] Comment on above: Order Comment: Order Date: 09/01/23Order Info: [id number] - CBC Performed By: #### L 504.2610, L503.6550, L500.4050, L503.6030, L100.0100 #### [facility] [address] [place], [address] RBC (Bld) [#/Vol] 6.07 10*6/uL Normal 4.6-6.2 [facility] Comment on above: Order Comment: Order Date: 09/01/23Order Info: [id number] - CBC Performed By: #### L 504.2610, L503.6550, L500.4050, L503.6030, L100.0100 #### [facility] [address] [place], [address] RDW SD 42.6 fl Normal 35.1-43.9 [facility] Comment on above: Order Comment: Order Date: 09/01/23Order Info: [id number] - CBC Performed By: #### L 504.2610, L503.6550, L500.4050, L503.6030, L100.0100 #### [facility] [address] [place], [address] WBC (Bld) [#/Vol] 6.8 10*3/uL Normal 4.4-11.0 [facility] Comment on above: Order Comment: Order Date: 09/01/23Order Info: [id number] - CBC Performed By: #### L 504.2610, L503.6550, L500.4050, L503.6030, L100.0100 #### [facility] [address] [place], [address] Comprehensive Metabolic Prof [facility] 09-02-2023 Albumin [Mass/Vol] 4.4 g/dL Normal 3.2-5.0 [facility] Comment on above: Order Comment: 1 Performed By: #### L 504.2610, L503.6550, L500.4050, L503.6030, L100.0100 #### [facility] [address] [place], [address] Albumin/Globulin [Mass ratio] 1.5 {ratio} Normal 0.9-2.4 [facility] Comment on above: Order Comment: 1 Performed By: #### L 504.2610, L503.6550, L500.4050, L503.6030, L100.0100 #### [facility] [address] [place], [address] ALK P 37 U/L Low 45-117 [facility] Comment on above: Order Comment: 1 Performed By: #### L 504.2610, L503.6550, L500.4050, L503.6030, L100.0100 #### [facility] [address] [place], [address] ALT [Catalytic activity/Vol] 27 U/L Normal 16-61 [facility] Comment on above: Order Comment: 1 Performed By: #### L 504.2610, L503.6550, L500.4050, L503.6030, L100.0100 #### [facility] [address] [place], [address] AST [Catalytic activity/Vol] 17 U/L Normal 15-37 [facility] Comment on above: Order Comment: 1 Performed By: #### L 504.2610, L503.6550, L500.4050, L503.6030, L100.0100 #### [facility] [address] [place], [address] Bilirubin [Mass/Vol] 1.40 mg/dL High 0.20-1.00 [facility] Comment on above: Order Comment: 1 Result Comment: For patients on eltrombopag therapy, use of Dimension [place] TBIL is not recommended. Performed By: #### L 504.2610, L503.6550, L500.4050, L503.6030, L100.0100 #### [facility] [address] [place], [address] BUN/CRE 16.6 RATIO Normal 10-20 [facility] Comment on above: Order Comment: 1 Performed By: #### L 504.2610, L503.6550, L500.4050, L503.6030, L100.0100 #### [facility] [address] [place], [address] CA,Total 9.7 mg/dL Normal 8.5-10.1 [facility] Comment on above: Order Comment: 1 Performed By: #### L 504.2610, L503.6550, L500.4050, L503.6030, L100.0100 #### [facility] [address] [place], [address] Chloride [Moles/Vol] 105 mmol/L Normal 98-107 [facility] Comment on above: Order Comment: 1 Performed By: #### L 504.2610, L503.6550, L500.4050, L503.6030, L100.0100 #### [facility] [address] [place], [address] CO2 [Moles/Vol] 27.0 mmol/L Normal 21.0-32.0 [facility] Comment on above: Order Comment: 1 Performed By: #### L 504.2610, L503.6550, L500.4050, L503.6030, L100.0100 #### [facility] [address] [place], [address] Creatinine [Mass/Vol] 0.90 mg/dL Normal 0.70-1.30 [facility] Comment on above: Order Comment: 1 Result Comment: The validity of the calculated GFR GFRAA in patients over 70 years has not been determined. Clinical correlation is essential. Performed By: #### L 504.2610, L503.6550, L500.4050, L503.6030, L100.0100 #### [facility] [address] [place], [address] EST GFR - AA 107 mL/min Normal >60 [facility] Comment on above: Order Comment: 1 Result Comment: Afri can Barbadian GFR Calc Performed By: #### L 504.2610, L503.6550, L500.4050, L503.6030, L100.0100 #### [facility] [address] [place], [address] GAP 8 Normal 5-15 [facility] Comment on above: Order Comment: 1 Performed By: #### L 504.2610, L503.6550, L500.4050, L503.6030, L100.0100 #### [facility] [address] [place], [address] GFR/1.73 sq M.predicted among non-blacks MDRD (S/P/Bld) [Vol rate/Area] 88 mL/min/{1.73_m2} Normal >60 [facility] Comment on above: Order Comment: 1 Result Comment: Non- GFR Calc Performed By: #### L 504.2610, L503.6550, L500.4050, L503.6030, L100.0100 #### [facility] [address] [place], [address] Globulin (S) [Mass/Vol] 2.9 g/dL Normal 2.2-4.2 [facility] Comment on above: Order Comment: 1 Performed By: #### L 504.2610, L503.6550, L500.4050, L503.6030, L100.0100 #### [facility] [address] [place], [address] Glucose [Mass/Vol] 120 mg/dL High 74-106 [facility] Comment on above: Order Comment: 1 Result Comment: Fast ing Glucose result from 100 to 125 mg/dL suggests IMPAIRED HOMEOSTASIS per A.D.A. criteria. Performed By: #### L 504.2610, L503.6550, L500.4050, L503.6030, L100.0100 #### [facility] [address] [place], [address] Potassium [Moles/Vol] 4.4 mmol/L Normal 3.5-5.1 [facility] Comment on above: Order Comment: 1 Performed By: #### L 504.2610, L503.6550, L500.4050, L503.6030, L100.0100 #### [facility] [address] [place], [address] Sodium [Moles/Vol] 140 mmol/L Normal 136-145 [facility] Comment on above: Order Comment: 1 Performed By: #### L 504.2610, L503.6550, L500.4050, L503.6030, L100.0100 #### [facility] [address] [place], [address] T PROT 7.3 g/dL Normal 6.4-8.2 [facility] Comment on above: Order Comment: 1 Performed By: #### L 504.2610, L503.6550, L500.4050, L503.6030, L100.0100 #### [facility] [address] [place], [address] Urea nitrogen [Mass/Vol] 15 mg/dL Normal 7-18 [facility] Comment on above: Order Comment: 1 Performed By: #### L 504.2610, L503.6550, L500.4050, L503.6030, L100.0100 #### [facility] [address] [place], [address] Lipid Profileon 09-02-2023 Cholesterol [Mass/Vol] 162 mg/dL Normal 200 [facility] Comment on above: Order Comment: 1 Result Comment: <200 mg/dL Desirable 200-240 mg/dL Borderline >240 mg/dL High Risk Performed By: #### L 504.2610, L503.6550, L500.4050, L503.6030, L100.0100 #### [facility] [address] [place], [address] Cholesterol in HDL [Mass/Vol] 45 mg/dL Normal [facility] Comment on above: Order Comment: 1 Result Comment: The drugs N-Acetylcysteine and Metamizole may falsely depress this assay. Reference Range HDL <40 mg/dL Low HDL Cholesterol HDL >or= 60 mg/dL High HDL Cholesterol Performed By: #### L 504.2610, L503.6550, L500.4050, L503.6030, L100.0100 #### [facility] [address] [place], [address] Cholesterol in LDL [Mass/Vol] 107 mg/dL Normal 0-130 [facility] Comment on above: Order Comment: 1 Performed By: #### L 504.2610, L503.6550, L500.4050, L503.6030, L100.0100 #### [facility] [address] [place], [address] Cholesterol in VLDL [Mass/Vol] 10 mg/dL Normal 5-40 [facility] Comment on above: Order Comment: 1 Performed By: #### L 504.2610, L503.6550, L500.4050, L503.6030, L100.0100 #### [facility] [address] [place], [address] Triglyceride [Mass/Vol] 49 mg/dL Normal [facility] Comment on above: Order Comment: 1 Result Comment: The drugs N-Acetylcysteine and Metamizole may falsely depress this assay. Serum Triglycerides Reference Interval Normal <150 mg/dL Borderline high 150 - 199 mg/dL High 200 - 499 mg/dL Very High > or = 500 mg/dL Performed By: #### L 504.2610, L503.6550, L500.4050, L503.6030, L100.0100 #### [facility] [address] [place], [address] PSA,Total - Annual Screenon 09-02-2023 PSA,TOT SCREEN 3.38 ng/mL Normal 0.00-4.00 [facility] Comment on above: Order Comment: 1 Result Comment: This test was performed using the TPSA assay method for the [employer] chemistry system. Values obtained with different assay methods cannot be used interchangably. When changing PSA assays in the course of monitoring a patient, additional sequential testing should be carried out to confirm baseline values. Performed By: #### L 504.2610, L503.6550, L500.4050, L503.6030, L100.0100 #### [facility] [address] [place], [address] Testosterone, Serum Totalon 09-02-2023 Testosterone [Mass/Vol] 278.72 ng/dL Normal [facility] Comment on above: Order Comment: 1 Result Comment: CENT RAL 90% REFERENCE RANGES MALE AGE <50 197.44 - 669.58 ng/dL MALE AGE > or = 50 187.72 - 684.19 ng/dL FEMALE AGE <50 8.38 - 35.01 ng/dL FEMALE AGE > or = 50 <7.00 - 35.92 ng/dL Effective as of 10/10/20 Performed By: #### L 504.2610, L503.6550, L500.4050, L503.6030, L100.0100 #### [facility] [address] [place], [address] Uric Acidon 09-02-2023 URIC 6.2 mg/dL Normal 3.5-7.2 [facility] Comment on above: Order Comment: 1 Result Comment: The drugs N-Acetylcysteine and Metamizole may falsely depress this assay. Performed By: #### L 504.2610, L503.6550, L500.4050, L503.6030, L100.0100 #### [facility] [address] [place], [address] Absolute lymphocyte countOrd ered By: Brian Chamorro on 01-06-2023 Lymphocytes Auto (Unsp spec) [#/Vol] 1.76 10*3/uL 0.83-4.51 [facility] Basophil percentageOrdered B y: Brian Chamorro on 01-06-2023 Basophils/100 WBC (Bld) 0.4 % 0-1 [facility] Eosinophils/100 WBC (Bld) 1.2 % 0-5 [facility] Neutrophils (Bld) [#/Vol] 5.5 10*3/uL 2.0-7.7 [facility] Neutrophils/100 WBC (Bld) 67.2 % 47-70 [facility] Testosterone [Mass/Vol] 239.68 ng/dL [facility] Comment on above: CENTRAL 90% REFERENC E RANGES MALE AGE <50 197.44 - 669.58 ng/dL MALE AGE > or = 50 187.72 - 684.19 ng/dL FEMALE AGE <50 8.38 - 35.01 ng/dL FEMALE AGE > or = 50 <7.00 - 35.92 ng/dL Effective as of 10/10/20 WBC (Bld) [#/Vol] 8.2 10*3/uL 4.4-11.0 [facility] Blood erythrocytes count (nu mber/volume)Ordered By: Brian Chamorro on 01-06-2023 RBC (Bld) [#/Vol] 5.72 10*6/uL 4.6-6.2 [facility] Blood hemoglobin measurement (mass/volume)Ordered By: Brian Chamorro on 01-06-2023 Hemoglobin (Bld) [Mass/Vol] 16.4 g/dL 13.0-16.5 [facility] Blood lymphocytes/100 leukoc ytesOrdered By: Brian Chamorro on 01-06-2023 Lymphocytes/100 WBC (Bld) 21.5 % 19-41 [facility] Blood monocytes/100 leukocyt esOrdered By: Brian Chamorro on 01-06-2023 Monocytes/100 WBC (Bld) 9.5 % 0-10 [facility] Blood platelet mean volumeOr dered By: Brian Chamorro on 01-06-2023 Platelet mean volume (Bld) [Entitic vol] 10.3 fL 6.2-12.0 [facility] Determination of erythrocyte mean corpuscular volume (MCV)Ordered By: Brian Chamorro on 01-06-2023 MCV (RBC) [Entitic vol] 88.5 fL 80-94 [facility] Hematocrit Auto (Bld) [Volum e fraction]Ordered By: Brian Chamorro on 01-06-2023 Hematocrit (Bld) [Volume fraction] 50.6 % 40-54 [facility] - Hematology and Cell countsOrdered By: Brian Chamorro on 01-06-2023 Erythrocyte distribution width (RBC) [Entitic vol] 43.5 fL 35.1-43.9 [facility] Erythrocyte distribution width (RBC) [Ratio] 13.4 % 11.6-14.6 [facility] Immature granulocytes/100 WBC (Bld) 0.200 % 0.0-0.9 [facility] Comment on above: IG% - Immature Granu locytes (promyelocytes, myelocytes and metamyelocytes) > 1% indicates that a LEFT SHIFT is Present. MCH (RBC) [Entitic mass] 28.7 pg 27.0-32.0 [facility] Nucleated RBC/100 WBC (Bld) [Ratio] 0 % 0-5 [facility] MCHC Auto (RBC) [Mass/Vol]Or dered By: Brian Chamorro on 01-06-2023 MCHC (RBC) [Mass/Vol] 32.4 g/dL 32-36 [facility] No Panel InformationOrdered By: Brian Chamorro on 01-06-2023 Urine Microalbumin/Creatinine Ratio 5.6 mg/g CRE <30 [facility] Platelets bldOrdered By: Safia Chamorro on 01-06-2023 Platelets (Bld) [#/Vol] 202 10*3/uL 150-450 [facility] Thin prep Papanicolaou smear with manual screeningOrdered By: Brian Chamorro on 01-06-2023 Thin prep Papanicolaou smear with manual screening 8.4 mg/L NO RANGE EST. [facility] Urine creatinine measurement (mass/volume)Ordered By: Brian Chamorro on 01-06-2023 Creatinine (U) [Mass/Vol] 149.00 mg/dL NO RANGE EST. [facility] Absolute lymphocyte countOrd ered By: Brian Chamorro on 10-01-2022 Lymphocytes Auto (Unsp spec) [#/Vol] 1.41 10*3/uL 0.83-4.51 [facility] Basophil percentageOrdered B y: Brian Chamorro on 10-01-2022 Basophils/100 WBC (Bld) 0.4 % 0-1 [facility] Eosinophils/100 WBC (Bld) 2.2 % 0-5 [facility] Neutrophils (Bld) [#/Vol] 5.6 10*3/uL 2.0-7.7 [facility] Neutrophils/100 WBC (Bld) 72.4 % 47-70 [facility] Testosterone [Mass/Vol] 241.50 ng/dL [facility] Comment on above: CENTRAL 90% REFERENC E RANGES MALE AGE <50 197.44 - 669.58 ng/dL MALE AGE > or = 50 187.72 - 684.19 ng/dL FEMALE AGE <50 8.38 - 35.01 ng/dL FEMALE AGE > or = 50 <7.00 - 35.92 ng/dL Effective as of 10/10/20 WBC (Bld) [#/Vol] 7.7 10*3/uL 4.4-11.0 [facility] Blood erythrocytes count (nu mber/volume)Ordered By: Brian Chamorro on 10-01-2022 RBC (Bld) [#/Vol] 6.02 10*6/uL 4.6-6.2 [facility] Blood hemoglobin measurement (mass/volume)Ordered By: Brian Chamorro on 10-01-2022 Hemoglobin (Bld) [Mass/Vol] 16.8 g/dL 13.0-16.5 [facility] Blood lymphocytes/100 leukoc ytesOrdered By: Brian Chamorro on 10-01-2022 Lymphocytes/100 WBC (Bld) 18.3 % 19-41 [facility] Blood monocytes/100 leukocyt esOrdered By: Brian Chamorro on 10-01-2022 Monocytes/100 WBC (Bld) 6.4 % 0-10 [facility] Blood platelet mean volumeOr dered By: Brian Chamorro on 10-01-2022 Platelet mean volume (Bld) [Entitic vol] 11.0 fL 6.2-12.0 [facility] Determination of erythrocyte mean corpuscular volume (MCV)Ordered By: Brian Chamorro on 10-01-2022 MCV (RBC) [Entitic vol] 88.2 fL 80-94 [facility] Hematocrit Auto (Bld) [Volum e fraction]Ordered By: Brian Chamorro on 10-01-2022 Hematocrit (Bld) [Volume fraction] 53.1 % 40-54 [facility] - Hematology and Cell countsOrdered By: Brian Chamorro on 10-01-2022 Erythrocyte distribution width (RBC) [Entitic vol] 43.7 fL 35.1-43.9 [facility] Erythrocyte distribution width (RBC) [Ratio] 13.4 % 11.6-14.6 [facility] Immature granulocytes/100 WBC (Bld) 0.300 % 0.0-0.9 [facility] Comment on above: IG% - Immature Granu locytes (promyelocytes, myelocytes and metamyelocytes) > 1% indicates that a LEFT SHIFT is Present. MCH (RBC) [Entitic mass] 27.9 pg 27.0-32.0 [facility] Nucleated RBC/100 WBC (Bld) [Ratio] 0 % 0-5 [facility] MCHC Auto (RBC) [Mass/Vol]Or dered By: Brian Chamorro on 10-01-2022 MCHC (RBC) [Mass/Vol] 31.6 g/dL 32-36 [facility] Platelets bldOrdered By: Safia Chamorro on 10-01-2022 Platelets (Bld) [#/Vol] 203 10*3/uL 150-450 [facility] Absolute lymphocyte countOrd ered By: Brian Chamorro on 08-02-2022 Lymphocytes Auto (Unsp spec) [#/Vol] 1.49 10*3/uL 0.83-4.51 [facility] Basophil percentageOrdered B y: Brian Chamorro on 08-02-2022 Basophils/100 WBC (Bld) 0.4 % 0-1 [facility] Eosinophils/100 WBC (Bld) 1.9 % 0-5 [facility] Neutrophils (Bld) [#/Vol] 4.6 10*3/uL 2.0-7.7 [facility] Neutrophils/100 WBC (Bld) 67.3 % 47-70 [facility] WBC (Bld) [#/Vol] 6.9 10*3/uL 4.4-11.0 [facility] Blood erythrocytes count (nu mber/volume)Ordered By: Brian Chamorro on 08-02-2022 RBC (Bld) [#/Vol] 5.94 10*6/uL 4.6-6.2 [facility] Blood hemoglobin measurement (mass/volume)Ordered By: Brian Chamorro on 08-02-2022 Hemoglobin (Bld) [Mass/Vol] 16.8 g/dL 13.0-16.5 [facility] Blood lymphocytes/100 leukoc ytesOrdered By: Brian Chamorro on 08-02-2022 Lymphocytes/100 WBC (Bld) 21.8 % 19-41 [facility] Blood monocytes/100 leukocyt esOrdered By: Brian Chamorro on 08-02-2022 Monocytes/100 WBC (Bld) 8.2 % 0-10 [facility] Blood platelet mean volumeOr dered By: Brian Chamorro on 08-02-2022 Platelet mean volume (Bld) [Entitic vol] 10.7 fL 6.2-12.0 [facility] Determination of erythrocyte mean corpuscular volume (MCV)Ordered By: Brian Chamorro on 08-02-2022 MCV (RBC) [Entitic vol] 88.0 fL 80-94 [facility] Hematocrit Auto (Bld) [Volum e fraction]Ordered By: Brian Chamorro on 08-02-2022 Hematocrit (Bld) [Volume fraction] 52.3 % 40-54 [facility] - Hematology and Cell countsOrdered By: Brian Chamorro on 08-02-2022 Erythrocyte distribution width (RBC) [Entitic vol] 43.8 fL 35.1-43.9 [facility] Erythrocyte distribution width (RBC) [Ratio] 13.6 % 11.6-14.6 [facility] Immature granulocytes/100 WBC (Bld) 0.400 % 0.0-0.9 [facility] Comment on above: IG% - Immature Granu locytes (promyelocytes, myelocytes and metamyelocytes) > 1% indicates that a LEFT SHIFT is Present. MCH (RBC) [Entitic mass] 28.3 pg 27.0-32.0 [facility] Nucleated RBC/100 WBC (Bld) [Ratio] 0 % 0-5 [facility] MCHC Auto (RBC) [Mass/Vol]Or dered By: Brian Chamorro on 08-02-2022 MCHC (RBC) [Mass/Vol] 32.1 g/dL 32-36 [facility] Platelets bldOrdered By: Safia Chamorro on 08-02-2022 Platelets (Bld) [#/Vol] 198 10*3/uL 150-450 [facility] Absolute lymphocyte countOrd ered By: Dr. Chamorro on 07-06-2022 Lymphocytes Auto (Unsp spec) [#/Vol] 1.69 10*3/uL 0.83-4.51 [facility] Basophil percentageOrdered B y: Dr. Chamorro on 07-06-2022 Basophils/100 WBC (Bld) 0.3 % 0-1 [facility] Bilirubin [Mass/Vol] 1.30 mg/dL 0.20-1.00 [facility] Comment on above: For patients on eltr ombopag therapy, use of Dimension [place] TBIL is not recommended. Chloride [Moles/Vol] 104 mmol/L 98-107 [facility] Cholesterol [Mass/Vol] 142 mg/dL <200 [facility] Comment on above: <200 mg/dL Desirable 200-240 mg/dL Borderline >240 mg/dL High Risk Eosinophils/100 WBC (Bld) 1.6 % 0-5 [facility] Glucose [Mass/Vol] 115 mg/dL 74-106 [facility] Comment on above: Fasting Glucose resu lt from 100 to 125 mg/dL suggests IMPAIRED HOMEOSTASIS per A.D.A. criteria. Neutrophils (Bld) [#/Vol] 4.0 10*3/uL 2.0-7.7 [facility] Neutrophils/100 WBC (Bld) 62.3 % 47-70 [facility] Potassium [Moles/Vol] 4.2 mmol/L 3.5-5.1 [facility] Protein [Mass/Vol] 6.8 g/dL 6.4-8.2 [facility] Sodium [Moles/Vol] 136 mmol/L 136-145 [facility] Testosterone [Mass/Vol] 360.48 ng/dL [facility] Comment on above: CENTRAL 90% REFERENC E RANGES MALE AGE <50 197.44 - 669.58 ng/dL MALE AGE > or = 50 187.72 - 684.19 ng/dL FEMALE AGE <50 8.38 - 35.01 ng/dL FEMALE AGE > or = 50 <7.00 - 35.92 ng/dL Effective as of 10/10/20 Triglyceride [Mass/Vol] 54 mg/dL <199 [facility] Comment on above: The drugs N-Acetylcy steine and Metamizole may falsely depress this assay.Serum Triglycerides Reference Interval Normal <150 mg/dL Borderline high 150 - 199 mg/dL High 200 - 499 mg/dL Very High > or = 500 mg/dL WBC (Bld) [#/Vol] 6.3 10*3/uL 4.4-11.0 [facility] Blood erythrocytes count (nu mber/volume)Ordered By: Dr. Chamorro on 07-06-2022 RBC (Bld) [#/Vol] 6.12 10*6/uL 4.6-6.2 [facility] Blood hemoglobin measurement (mass/volume)Ordered By: Dr. Chamorro on 07-06-2022 Hemoglobin (Bld) [Mass/Vol] 17.4 g/dL 13.0-16.5 [facility] Blood lymphocytes/100 leukoc ytesOrdered By: Dr. Chamorro on 07-06-2022 Lymphocytes/100 WBC (Bld) 26.7 % 19-41 [facility] Blood monocytes/100 leukocyt esOrdered By: Dr. Chamorro on 07-06-2022 Monocytes/100 WBC (Bld) 8.8 % 0-10 [facility] Blood platelet mean volumeOr dered By: Dr. Chamorro on 07-06-2022 Platelet mean volume (Bld) [Entitic vol] 10.3 fL 6.2-12.0 [facility] Determination of erythrocyte mean corpuscular volume (MCV)Ordered By: Dr. Chamorro on 07-06-2022 MCV (RBC) [Entitic vol] 88.6 fL 80-94 [facility] Hematocrit Auto (Bld) [Volum e fraction]Ordered By: Dr. Chamorro on 07-06-2022 Hematocrit (Bld) [Volume fraction] 54.2 % 40-54 [facility] - Chemistry and C hemistry - challengeOrdered By: Dr. Chamorro on 07-06-2022 ALP [Catalytic activity/Vol] 34 U/L 45-117 [facility] ALT [Catalytic activity/Vol] 29 U/L 16-61 [facility] CO2 [Moles/Vol] 29.0 mmol/L 21.0-32.0 [facility] Globulin (S) [Mass/Vol] 2.6 g/dL 2.2-4.2 [facility] Urea nitrogen/Creatinine [Mass ratio] 16.2 mg/mg 10-20 [facility] - Hematology and Cell countsOrdered By: Dr. Chamorro on 07-06-2022 Erythrocyte distribution width (RBC) [Entitic vol] 44.6 fL 35.1-43.9 [facility] Erythrocyte distribution width (RBC) [Ratio] 13.8 % 11.6-14.6 [facility] Immature granulocytes/100 WBC (Bld) 0.300 % 0.0-0.9 [facility] Comment on above: IG% - Immature Granu locytes (promyelocytes, myelocytes and metamyelocytes) > 1% indicates that a LEFT SHIFT is Present. MCH (RBC) [Entitic mass] 28.4 pg 27.0-32.0 [facility] Nucleated RBC/100 WBC (Bld) [Ratio] 0 % 0-5 [facility] MCHC Auto (RBC) [Mass/Vol]Or dered By: Dr. Chamorro on 07-06-2022 MCHC (RBC) [Mass/Vol] 32.1 g/dL 32-36 [facility] No Panel InformationOrdered By: Dr. Chamorro on 07-06-2022 Estimated GFR (MDRD) Amer 104 mL/min >60 [facility] Comment on above: GFR Calc Estimated GFR (MDRD) Non-Af Amer 86 mL/min >60 [facility] Comment on above: Non- GFR Calc Prostate Specific Antigen Screen 3.35 ng/mL 0.00-4.00 [facility] Comment on above: This test was perfor med using the TPSA assay method for the[employer] chemistry system. Values obtained with differentassay methods cannot be used interchangably.When changing PSA assays in the course of monitoring apatient, additional sequential testing should be carriedout to confirm baseline values. Platelets bldOrdered By: Dr. Chamorro on 07-06-2022 Platelets (Bld) [#/Vol] 166 10*3/uL 150-450 [facility] Serum or plasma albumin audelia urement (mass/volume)Ordered By: Dr. Chamorro on 07-06-2022 Albumin [Mass/Vol] 4.2 g/dL 3.2-5.0 [facility] Serum or plasma albumin/glob ulin mass ratioOrdered By: Dr. Chamorro on 07-06-2022 Albumin/Globulin [Mass ratio] 1.6 {ratio} 0.9-2.4 [facility] Serum or plasma calcium audelia urement (mass/volume)Ordered By: Dr. Chamorro on 07-06-2022 Calcium [Mass/Vol] 9.0 mg/dL 8.5-10.1 [facility] Serum or plasma cholesterol in HDL measurement (mass/volume)Ordered By: Dr. Chamorro on 07-06-2022 Cholesterol in HDL [Mass/Vol] 46 mg/dL >40 [facility] Comment on above: The drugs N-Acetylcy steine and Metamizole may falsely depress this assay. Reference Range HDL <40 mg/dL Low HDL Cholesterol HDL >or= 60 mg/dL High HDL Cholesterol Serum or plasma cholesterol in VLDL measurement (mass/volume)Ordered By: Dr. Chamorro on 07-06-2022 Cholesterol in VLDL [Mass/Vol] 11 mg/dL 5-40 [facility] Serum or plasma creatinine m easurement (mass/volume)Ordered By: Dr. Chamorro on 07-06-2022 Creatinine [Mass/Vol] 0.92 mg/dL 0.70-1.30 [facility] Comment on above: The validity of the calculated GFR & GFRAA in patients over 70 years has not been determined. Clinical correlation is essential. Serum or plasma low density lipoprotein (LDL) cholesterol measurement (mass/volume)Ordered By: Dr. Chamorro on 07-06-2022 Cholesterol in LDL [Mass/Vol] 85 mg/dL 0-130 [facility] Serum or plasma urea nitroge n measurement (mass/volume)Ordered By: Dr. Chamorro on 07-06-2022 Urea nitrogen [Mass/Vol] 15 mg/dL 7-18 [facility] Thin prep Papanicolaou smear with manual screeningOrdered By: Dr. Chamorro on 07-06-2022 Thin prep Papanicolaou smear with manual screening 16 U/L 15-37 [facility] Thin prep Papanicolaou smear with manual screening 3 5-15 [facility] Absolute lymphocyte countOrd ered By: Dr. Chamorro on 2022 Lymphocytes Auto (Unsp spec) [#/Vol] 1.21 10*3/uL 0.83-4.51 [facility] Basophil percentageOrdered B y: Dr. Chamorro on 2022 Basophils/100 WBC (Bld) 0.2 % 0-1 [facility] Eosinophils/100 WBC (Bld) 2.5 % 0-5 [facility] Neutrophils (Bld) [#/Vol] 3.8 10*3/uL 2.0-7.7 [facility] Neutrophils/100 WBC (Bld) 67.1 % 47-70 [facility] WBC (Bld) [#/Vol] 5.6 10*3/uL 4.4-11.0 [facility] Blood erythrocytes count (nu mber/volume)Ordered By: Dr. Chamorro on 2022 RBC (Bld) [#/Vol] 6.13 10*6/uL 4.6-6.2 [facility] Blood hemoglobin measurement (mass/volume)Ordered By: Dr. Chamorro on 2022 Hemoglobin (Bld) [Mass/Vol] 17.0 g/dL 13.0-16.5 [facility] Blood lymphocytes/100 leukoc ytesOrdered By: Dr. Chamorro on 2022 Lymphocytes/100 WBC (Bld) 21.5 % 19-41 [facility] Blood monocytes/100 leukocyt esOrdered By: Dr. Chamorro on 2022 Monocytes/100 WBC (Bld) 8.7 % 0-10 [facility] Blood platelet mean volumeOr dered By: Dr. Chamorro on 2022 Platelet mean volume (Bld) [Entitic vol] 10.8 fL 6.2-12.0 [facility] Determination of erythrocyte mean corpuscular volume (MCV)Ordered By: Dr. Chamorro on 2022 MCV (RBC) [Entitic vol] 87.9 fL 80-94 [facility] Hematocrit Auto (Bld) [Volum e fraction]Ordered By: Dr. Chamorro on 2022 Hematocrit (Bld) [Volume fraction] 53.9 % 40-54 [facility] JAK2 V617F mutation detectio nOrdered By: Dr. Chamorro on 2022 JAK2 gene p.[id number] [employer] Ql (Bld/Tiss) Comment . [facility] Comment on above: Result: NEGATIVE for the JAK2 V617F mutation.Interpretation: The G to T nucleotide change encoding [id number] mutation was not detected. This result does not ruleout the presence of the JAK2 mutation at a level below thesensitivity of detection of this assay, or the presence ofother mutations within JAK2 not detected by this assay.This result does not rule out a diagnosis of polycythemiavera, essential thrombocythemia or idiopathicmyelofibrosis as the V617F mutation is not detected inall patients with these disorders. Laboratory - Hematology and Cell countsOrdered By: Dr. Chamorro on 2022 Erythrocyte distribution width (RBC) [Entitic vol] 44.6 fL 35.1-43.9 [facility] Erythrocyte distribution width (RBC) [Ratio] 13.8 % 11.6-14.6 [facility] Immature granulocytes/100 WBC (Bld) 0.000 % 0.0-0.9 [facility] Comment on above: IG% - Immature Granu locytes (promyelocytes, myelocytes and metamyelocytes) > 1% indicates that a LEFT SHIFT is Present. MCH (RBC) [Entitic mass] 27.7 pg 27.0-32.0 [facility] Nucleated RBC/100 WBC (Bld) [Ratio] 0 % 0-5 [facility] MCHC Auto (RBC) [Mass/Vol]Or dered By: Dr. Chamorro on 2022 MCHC (RBC) [Mass/Vol] 31.5 g/dL 32-36 [facility] No Panel InformationOrdered By: Dr. Chamorro on 2022 JAK2 Mutation Comment . [facility] Comment on above: Laura Ling, PhD, FACM GDirector, Molecular OncologyLabco Center for Molecular Biology and PathologyResLockhart, [place] [phone] test was developed and its performance characteristicsdetermined by [employer]. It has not been cleared orapproved by the Food and Drug Administration.Performed at: [facility] [id number] [facility], [place], [place] [id number] Director: Margarito Barbour [facility], Phone: [phone] at: [facility] [employer] [id number] [employer], [facility], [place] [id number] Director: Margarito Barbour [facility], Phone: [phone] JAK2 V617F Reviewed By Comment . [facility] Comment on above: JAK2 is a cytoplasmi c tyrosine kinase with a moreno role insignal transduction from multiple hematopoietic growthfactor receptors. A point mutation within exon 14 of theJAK2 gene ([id number]) encoding a valine to phenylalaninesubstitution at position 617 of the JAK2 protein (V617F)has been identified in most patients with polycythemiavera, and in about half of those with either essentialthrombocythemia or idiopathic myelofibrosis. The V617F hasalso been detected, although infrequently, in other myeloiddisorders such as chronic myelomonocytic leukemia andchronic neutrophilic luekemia. V617F is an acquiredmutation that alters a highly conserved valine present inthe negative regulatory JH2 domain of the JAK2 proteinand is predicted to dysregulate kinase activity.Methodology:Total genomic DNA was extracted and subjected to TaqManreal-time PCR amplification/detection. Two amplificationproducts per sample were monitored by real-time PCR usingprimers/probes specific to JAK2 wild type (WT) and [id number] V617F. The [employer] Absolute Quantitation softwarewill compare the patient specimen valuse to the standardcurves and generate percent values for wild type andmutant type. In vitro studies have indicated that thisassay has an analytical sensitivity of 1%.References:Sage EJ, Jaime LM, [place] PJ, et al. Acquiredmutation of the tyrosine kinase JAK2 in humanmyeloproliferative disorders. Lancet. 2005 Jun 02-;365(0079):1606-7327. Osman Mejia, Brijesh V, Migdalia Saez ARACELIS. Aunique clonal JAK2 mutation leading to constitutivesignaling causes polycythaemia vera. Nature. 2005 Jul 12;790(3044):9867-3385.Nena R, Alexandrea F, Edith , et al. A [id number]-[id number] mutation of JAK2 in myeloproliferative disorders.N Engl J Med. 2005 Jul 12; 352(45):3563-8992. Platelets bldOrdered By: Dr. Chamorro on 2022 Platelets (Bld) [#/Vol] 152 10*3/uL 150-450 [facility] Absolute lymphocyte countOrd ered By: Dr. Chamorro on 04-05-2022 Lymphocytes Auto (Unsp spec) [#/Vol] 1.52 10*3/uL 0.83-4.51 [facility] Basophil percentageOrdered B y: Dr. Chamorro on 04-05-2022 Basophils/100 WBC (Bld) 0.4 % 0-1 [facility] Bilirubin [Mass/Vol] 1.40 mg/dL 0.20-1.00 [facility] Comment on above: For patients on eltr ombopag therapy, use of Dimension [place] TBIL is not recommended. Chloride [Moles/Vol] 103 mmol/L 98-107 [facility] Eosinophils/100 WBC (Bld) 1.4 % 0-5 [facility] Glucose [Mass/Vol] 103 mg/dL 74-106 [facility] Comment on above: Fasting Glucose resu lt from 100 to 125 mg/dL suggests IMPAIRED HOMEOSTASIS per A.D.A. criteria. Neutrophils (Bld) [#/Vol] 4.8 10*3/uL 2.0-7.7 [facility] Neutrophils/100 WBC (Bld) 68.5 % 47-70 [facility] Potassium [Moles/Vol] 4.0 mmol/L 3.5-5.1 [facility] Protein [Mass/Vol] 6.8 g/dL 6.4-8.2 [facility] Sodium [Moles/Vol] 139 mmol/L 136-145 [facility] Testosterone [Mass/Vol] 535.64 ng/dL [facility] Comment on above: CENTRAL 90% REFERENC E RANGES MALE AGE <50 197.44 - 669.58 ng/dL MALE AGE > or = 50 187.72 - 684.19 ng/dL FEMALE AGE <50 8.38 - 35.01 ng/dL FEMALE AGE > or = 50 <7.00 - 35.92 ng/dL Effective as of 10/10/20 WBC (Bld) [#/Vol] 7.0 10*3/uL 4.4-11.0 [facility] Blood erythrocytes count (nu mber/volume)Ordered By: Dr. Chamorro on 04-05-2022 RBC (Bld) [#/Vol] 6.26 10*6/uL 4.6-6.2 [facility] Blood hemoglobin measurement (mass/volume)Ordered By: Dr. Chamorro on 04-05-2022 Hemoglobin (Bld) [Mass/Vol] 17.7 g/dL 13.0-16.5 [facility] Blood lymphocytes/100 leukoc ytesOrdered By: Dr. Chamorro on 04-05-2022 Lymphocytes/100 WBC (Bld) 21.8 % 19-41 [facility] Blood monocytes/100 leukocyt esOrdered By: Dr. Chamorro on 04-05-2022 Monocytes/100 WBC (Bld) 7.5 % 0-10 [facility] Blood platelet mean volumeOr dered By: Dr. Chamorro on 04-05-2022 Platelet mean volume (Bld) [Entitic vol] 9.8 fL 6.2-12.0 [facility] Determination of erythrocyte mean corpuscular volume (MCV)Ordered By: Dr. Chamorro on 04-05-2022 MCV (RBC) [Entitic vol] 87.4 fL 80-94 [facility] Hematocrit Auto (Bld) [Volum e fraction]Ordered By: Dr. Chamorro on 04-05-2022 Hematocrit (Bld) [Volume fraction] 54.7 % 40-54 [facility] JAK2 V617F mutation detectio nOrdered By: Dr. Chamorro on 04-05-2022 JAK2 gene p.[id number] [facility] (Bld/Tiss) Comment . [facility] Comment on above: Result: NEGATIVE for the JAK2 V617F mutation.Interpretation: The G to T nucleotide change encoding [id number] mutation was not detected. This result does not ruleout the presence of the JAK2 mutation at a level below thesensitivity of detection of this assay, or the presence ofother mutations within JAK2 not detected by this assay.This result does not rule out a diagnosis of polycythemiavera, essential thrombocythemia or idiopathicmyelofibrosis as the V617F mutation is not detected inall patients with these disorders. Laboratory - Chemistry and C hemistry - challengeOrdered By: Dr. Chamorro on 04-05-2022 ALP [Catalytic activity/Vol] 38 U/L 45-117 [facility] ALT [Catalytic activity/Vol] 31 U/L 16-61 [facility] CO2 [Moles/Vol] 29.0 mmol/L 21.0-32.0 [facility] Globulin (S) [Mass/Vol] 2.5 g/dL 2.2-4.2 [facility] Urea nitrogen/Creatinine [Mass ratio] 15.8 mg/mg 10-20 [facility] Laboratory - Hematology and Cell countsOrdered By: Dr. Chamorro on 04-05-2022 Erythrocyte distribution width (RBC) [Entitic vol] 43.6 fL 35.1-43.9 [facility] Erythrocyte distribution width (RBC) [Ratio] 13.7 % 11.6-14.6 [facility] Immature granulocytes/100 WBC (Bld) 0.400 % 0.0-0.9 [facility] Comment on above: IG% - Immature Granu locytes (promyelocytes, myelocytes and metamyelocytes) > 1% indicates that a LEFT SHIFT is Present. MCH (RBC) [Entitic mass] 28.3 pg 27.0-32.0 [facility] Nucleated RBC/100 WBC (Bld) [Ratio] 0 % 0-5 [facility] MCHC Auto (RBC) [Mass/Vol]Or dered By: Dr. Chamorro on 04-05-2022 MCHC (RBC) [Mass/Vol] 32.4 g/dL 32-36 [facility] No Panel InformationOrdered By: Dr. Chamorro on 04-05-2022 Estimated GFR (MDRD) Amer 119 mL/min >60 [facility] Comment on above: GFR Calc Estimated GFR (MDRD) Non-Af Amer 98 mL/min >60 [facility] Comment on above: Non- GFR Calc JAK2 Mutation Comment . [facility] Comment on above: Ja Lign, PhD, [facility] Director, Molecular Oncology [facility] [place] [address] This test was developed and its performance characteristicsdetermined by [facility]. It has not been cleared orapproved by the Food and Drug Administration. JAK2 V617F Reviewed By Comment . [facility] Comment on above: JAK2 is a cytoplasmi c tyrosine kinase with a moreno role insignal transduction from multiple hematopoietic growthfactor receptors. A point mutation within exon 14 of theJAK2 gene ([id number]) encoding a valine to phenylalaninesubstitution at position 617 of the JAK2 protein (V617F)has been identified in most patients with polycythemiavera, and in about half of those with either essentialthrombocythemia or idiopathic myelofibrosis. The V617F hasalso been detected, although infrequently, in other myeloiddisorders such as chronic myelomonocytic leukemia andchronic neutrophilic luekemia. V617F is an acquiredmutation that alters a highly conserved valine present inthe negative regulatory JH2 domain of the JAK2 proteinand is predicted to dysregulate kinase activity.Methodology:Total genomic DNA was extracted and subjected to TaqManreal-time PCR amplification/detection. Two amplificationproducts per sample were monitored by real-time PCR usingprimers/probes specific to JAK2 wild type (WT) and [id number] V617F. The [employer] Absolute Quantitation softwarewill compare the patient specimen valuse to the standardcurves and generate percent values for wild type andmutant type. In vitro studies have indicated that thisassay has an analytical sensitivity of 1%.References:Sage RIBEIRO, Jaime ROSE, [place] PJ, et al. Acquiredmutation of the tyrosine kinase JAK2 in humanmyeloproliferative disorders. Lancet. 2005 Jun 02-;365(7440):0548-8884. Osman Mejia, Brijesh Naidu, Migdalia Saez JP. Aunique clonal JAK2 mutation leading to constitutivesignaling causes polycythaemia vera. Nature. 2005 Jul 12;663(7208):2506-7313.Nena R, Alexandrea F, Edith , et al. A vmhs-rx-[id number] mutation of JAK2 in myeloproliferative disorders.N Engl J Med. 2005 Jul 12; 352(74):6511-2531. Platelets bldOrdered By: Dr. Chamorro on 04-05-2022 Platelets (Bld) [#/Vol] 181 10*3/uL 150-450 [facility] Serum or plasma albumin audelia urement (mass/volume)Ordered By: Dr. Chamorro on 04-05-2022 Albumin [Mass/Vol] 4.3 g/dL 3.2-5.0 [facility] Serum or plasma albumin/glob ulin mass ratioOrdered By: Dr. Chamorro on 04-05-2022 Albumin/Globulin [Mass ratio] 1.7 {ratio} 0.9-2.4 [facility] Serum or plasma calcium audelia urement (mass/volume)Ordered By: Dr. Chamorro on 04-05-2022 Calcium [Mass/Vol] 9.0 mg/dL 8.5-10.1 [facility] Serum or plasma creatinine m easurement (mass/volume)Ordered By: Dr. Chamorro on 04-05-2022 Creatinine [Mass/Vol] 0.82 mg/dL 0.70-1.30 [facility] Comment on above: The validity of the calculated GFR & GFRAA in patients over 70 years has not been determined. Clinical correlation is essential. Serum or plasma erythropoiet in (EPO) measurement (units/volume)Ordered By: Dr. Chamorro on 04-05-2022 Erythropoietin (EPO) Qn 7.9 mIU/mL 2.6-18.5 [facility] Comment on above: [employer] Uni[employer] el DxI 800 Immunoassay SystemValues obtained with different assay methods or kits cannotbe used interchangeably. Results cannot be interpreted asabsolute evidence of the presence or absence of malignantdisease.Performed at: [facility] [id number] [facility] [address], [place], [place] [id number] Director: Margarito Barbour [facility], Phone: [phone] at: - [facility] [id number] [place], [place] [id number] Director: Margarito Barbour [facility], Phone: [phone] at: [employer] [facility] [id number] [place], [place] [id number] Director: Santiago Min PhD, Phone: [phone] Serum or plasma urea nitroge n measurement (mass/volume)Ordered By: Dr. Chamorro on 04-05-2022 Urea nitrogen [Mass/Vol] 13 mg/dL 7-18 [facility] Thin prep Papanicolaou smear with manual screeningOrdered By: Dr. Chamorro on 04-05-2022 Thin prep Papanicolaou smear with manual screening 15 U/L 15-37 [facility] Thin prep Papanicolaou smear with manual screening 7 5-15 [facility] Basophil percentageon 2021 Bilirubin [Mass/Vol] 1.30 mg/dL 0.20-1.00 [facility] Work Phone: Comment on above: For patients on eltr ombopag therapy, use of Dimension [place] TBIL is not recommended. Chloride [Moles/Vol] 106 mmol/L 98-107 [facility] Work Phone: Cholesterol [Mass/Vol] 147 mg/dL <200 [facility] Work Phone: Comment on above: <200 mg/dL Desirable 200-240 mg/dL Borderline >240 mg/dL High Risk Glucose [Mass/Vol] 105 mg/dL 74-106 [facility] Work Phone: Comment on above: Fasting Glucose resu lt from 100 to 125 mg/dL suggests IMPAIRED HOMEOSTASIS per A.D.A. criteria. Potassium [Moles/Vol] 4.0 mmol/L 3.5-5.1 [facility] Work Phone: Protein [Mass/Vol] 6.6 g/dL 6.4-8.2 [facility] Work Phone: Sodium [Moles/Vol] 140 mmol/L 136-145 [facility] Work Phone: Testosterone [Mass/Vol] 487.95 ng/dL [facility] Work Phone: Comment on above: CENTRAL 90% REFERENC E RANGES MALE AGE <50 197.44 - 669.58 ng/dL MALE AGE > or = 50 187.72 - 684.19 ng/dL FEMALE AGE <50 8.38 - 35.01 ng/dL FEMALE AGE > or = 50 <7.00 - 35.92 ng/dL Effective as of 10/10/20 Triglyceride [Mass/Vol] 51 mg/dL [facility] Work Phone: Comment on above: The drugs N-Acetylcy steine and Metamizole may falsely depress this assay.Serum Triglycerides Reference Interval Normal <150 mg/dL Borderline high 150 - 199 mg/dL High 200 - 499 mg/dL Very High > or = 500 mg/dL WBC (Bld) [#/Vol] 6.8 10*3/uL 4.4-11.0 [facility] Work Phone: Blood erythrocytes count (nu mber/volume)on 07-31-2021 RBC (Bld) [#/Vol] 6.24 10*6/uL 4.6-6.2 [facility] Work Phone: Blood hemoglobin measurement (mass/volume)on 07-31-2021 Hemoglobin (Bld) [Mass/Vol] 17.7 g/dL 13.0-16.5 [facility] Work Phone: Blood platelet mean volumeon 07-31-2021 Platelet mean volume (Bld) [Entitic vol] 10.2 fL 6.2-12.0 [facility] Work Phone: Determination of erythrocyte mean corpuscular volume (MCV)on 07-31-2021 MCV (RBC) [Entitic vol] 87.7 fL 80-94 [facility] Work Phone: Hematocrit Auto (Bld) [Volum e fraction]on 07-31-2021 Hematocrit (Bld) [Volume fraction] 54.7 % 40-54 [facility] Work Phone: Laboratory - Chemistry and C hemistry - challengeon 07-31-2021 ALP [Catalytic activity/Vol] 35 U/L 45-117 [facility] Work Phone: ALT [Catalytic activity/Vol] 22 U/L 16-61 [facility] Work Phone: CO2 [Moles/Vol] 29.0 mmol/L 21.0-32.0 [facility] Work Phone: Globulin (S) [Mass/Vol] 2.7 g/dL 2.2-4.2 [facility] Work Phone: Urea nitrogen/Creatinine [Mass ratio] 13.0 mg/mg 10-20 [facility] Work Phone: Laboratory - Hematology and Cell countson 07-31-2021 Erythrocyte distribution width (RBC) [Entitic vol] 44.2 fL 35.1-43.9 [facility] Work Phone: Erythrocyte distribution width (RBC) [Ratio] 13.6 % 11.6-14.6 [facility] Work Phone: MCH (RBC) [Entitic mass] 28.4 pg 27.0-32.0 [facility] Work Phone: MCHC Auto (RBC) [Mass/Vol]on 07-31-2021 MCHC (RBC) [Mass/Vol] 32.4 g/dL 32-36 [facility] Work Phone: No Panel Informationon 07-31 Estimated GFR (MDRD) Amer 95 mL/min >60 [facility] Work Phone: Comment on above: GFR Calc Estimated GFR (MDRD) Non-Af Amer 79 mL/min >60 [facility] Work Phone: Comment on above: Non- GFR Calc Prostate Specific Antigen Total 3.10 ng/mL 0.0-4.0 [facility] Work Phone: Comment on above: This test was perfor med using the TPSA assay method for theDimension chemistry system. Values obtained with differentassay methods cannot be used interchangably.When changing PSA assays in the course of monitoring apatient, additional sequential testing should be carriedout to confirm baseline values. Platelets bldon 07-31-2021 Platelets (Bld) [#/Vol] 179 10*3/uL 150-450 [facility] Work Phone: Serum or plasma albumin audelia urement (mass/volume)on 07-31-2021 Albumin [Mass/Vol] 3.9 g/dL 3.2-5.0 [facility] Work Phone: Serum or plasma albumin/glob ulin mass ratioon 07-31-2021 Albumin/Globulin [Mass ratio] 1.4 {ratio} 0.9-2.4 [facility] Work Phone: Serum or plasma calcium audelia urement (mass/volume)on 07-31-2021 Calcium [Mass/Vol] 8.8 mg/dL 8.5-10.1 [facility] Work Phone: Serum or plasma cholesterol in HDL measurement (mass/volume)on 07-31-2021 Cholesterol in HDL [Mass/Vol] 43 mg/dL [facility] Work Phone: Comment on above: The drugs N-Acetylcy steine and Metamizole may falsely depress this assay. Reference Range HDL <40 mg/dL Low HDL Cholesterol HDL >or= 60 mg/dL High HDL Cholesterol Serum or plasma cholesterol in VLDL measurement (mass/volume)on 07-31-2021 Cholesterol in VLDL [Mass/Vol] 10 mg/dL 5-40 [facility] Work Phone: Serum or plasma creatinine m easurement (mass/volume)on 07-31-2021 Creatinine [Mass/Vol] 1.00 mg/dL 0.70-1.30 [facility] Work Phone: Comment on above: The validity of the calculated GFR & GFRAA in patients over 70 years has not been determined. Clinical correlation is essential. Serum or plasma low density lipoprotein (LDL) cholesterol measurement (mass/volume)on 05-17-2022 Cholesterol in LDL [Mass/Vol] 94 mg/dL 0-130 [facility] Work Phone: Serum or plasma urea nitroge n measurement (mass/volume)on 07-31-2021 Urea nitrogen [Mass/Vol] 13 mg/dL 7-18 [facility] Work Phone: Serum or plasma uric acid me asurement (mass/volume)on 07-31-2021 Urate [Mass/Vol] 6.3 mg/dL 3.5-7.2 [facility] Work Phone: Comment on above: The drugs N-Acetylcy steine and Metamizole may falsely depress this assay. Thin prep Papanicolaou smear with manual screeningon 07-31-2021 Thin prep Papanicolaou smear with manual screening 12 U/L 15-37 [facility] Work Phone: Thin prep Papanicolaou smear with manual screening 5 5-15 [facility] Work Phone: Vital Signs Date Time Vital Sign Value Performing Clinician Faci lity 05-31-2024 11:04-0400 Body height 181.[address] Nneka Chamorro MD Work Phone: [facility] 05-31-2024 11:04-0400 Body mass index (BMI) [Ratio] 30.3 kg/m2 Dr. Nneka Chamorro MD Work Phone: [facility] 05-31-2024 11:04-0400 Body temperature 98.1 [degF] Dr. Nneka Chamorro MD Work Phone: [facility] 05-31-2024 11:04-0400 Body weight 99.[address] Nneka Chamorro MD Work Phone: [facility] 05-31-2024 11:04-0400 Diastolic blood pressure 65 mm[Hg] Dr. Nneka Chamorro MD Work Phone: [facility] 05-31-2024 11:04-0400 Heart rate 62 /min Dr. Nneka Chamorro MD Work Phone: [facility] 05-31-2024 11:04-0400 Respiratory rate 18 /min Dr. Nneka Chamorro MD Work Phone: [facility] 05-31-2024 11:04-0400 SaO2% (BldA) [Mass fraction] 96 % Dr. Nneka Chamorro MD Work Phone: [facility] 05-31-2024 11:04-0400 Systolic blood pressure 99 mm[Hg] Dr. Nneka Chamorro MD Work Phone: [facility] Encounters Encounter Date Encounter Type Care Provider Facility Start: 08-23-2024 ambulatory Farshad Raissa Facility: [facility] Start: 08-20-2024 Encounter for other preprocedural examination [facility] Start: 07-29-2024 End: 07-29-2024 Non-patient / Non-visit Dr. Dom Malcolm MD -[facility] Work Phone: Start: 07-29-2024 End: 07-29-[address] Nneka Chamorro MD Work Phone: [facility] Work Phone: Start: 07-29-2024 End: 07-29-[address] 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 Nneka Chamorro MD Work Phone: [facility] Work Phone: Start: 06-04-2024 End: 06-04-[address] Farshad Haji MD -Laboratory, Specimen Work Phone: Start: 06-04-2024 End: 06-04-2024 ambulatory Farshad Haji Facility:[facility] Start: 05-31-2024 End: 05-31-[address] Jamie Marquez MD -[facility] Work Phone: Start: 05-31-2024 End: 05-31-2024 ambulatory Nneka Chamorro Facility:[facility] Start: 05-31-[address] 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, right eye, with active choroidal neovascularization (HCC); 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; Exudative age-related macular degeneration of left eye with inactive scar (HCC) Start: 04-15-2024 End: 04-15-2024 ambulatory INGRID KUMAR Facility:[facility] Start: 04-15-2024 End: 04-15-2024 Office outpatient new 45 minutes Ingrid Kumar MD, PhD Work Phone: Ophthalmology Comment on above: 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, right eye, with active choroidal neovascularization (HCC) (Primary Dx); 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; Exudative age-related macular degeneration of left eye with inactive scar (HCC) Start: 03-03-2024 End: 03-03-2024 Patient encounter procedure Roseanna EDMOND -[facility] Work Phone: Start: 03-03-2024 End: 03-03-2024 ambulatory Christopher Ranney Facility:[facility] Start: 01-13-2024 End: 01-13-2024 ambulatory Christopher Ranney Facility:[facility] Start: 12-19-2023 End: 12-19-2023 ambulatory Christopher Ranmary Facility:[facility] Start: 12-09-2023 End: 12-10-2023 ambulatory Haroldoopher Ashtyn Facility:[facility] Start: 12-09-2023 End: 12-09-2023 ambulatory Scott Hernández Facility:[facility] Start: 10-08-2023 End: 10-08-2023 ambulatory Haroldoophglenda Chamorro Facility:[facility] Start: 10-06-2023 End: 10-06-2023 ambulatory Jamie Marquez Facility:[facility] Start: 10-03-2023 End: 10-03-2023 ambulatory Christopher Ashtyn Facility:[facility] Start: 09-23-2023 End: 09-23-2023 ambulatory Christopher Ashtyn Facility:[facility] Start: 09-23-2023 End: 09-23-2023 ambulatory Patricker Ashtyn Facility:[facility] Start: 09-16-2023 End: 09-16-2023 ambulatory Christopher Ashtyn Facility:[facility] Start: 09-10-2023 ambulatory Millicent Galdamez Facility :[facility] Start: 09-02-2023 End: 09-02-2023 ambulatory Haroldoophglenda Chamorro Facility:[facility] Start: 01-06-2023 End: 01-06-2023 ambulatory [facility] Work Phone: Start: 01-06-2023 End: 01-06-2023 Patient encounter procedure [facility] Start: 10-01-2022 End: 10-01-2022 Patient encounter procedure [facility] Start: 08-02-2022 End: 08-02-2022 ambulatory [facility] Work Phone: Start: 08-02-2022 End: 08-02-2022 Patient encounter procedure [facility] Start: 07-06-2022 End: 07-06-2022 ambulatory [facility] Work Phone: Start: 07-06-2022 End: 07-06-2022 [facility] Start: 2022 End: 2022 ambulatory [facility] Work Phone: Start: 2022 End: 2022 Patient encounter procedure [facility] Start: 04-05-2022 End: 04-05-2022 Patient encounter procedure [facility] Start: 07-31-2021 End: 07-31-2021 Patient encounter procedure [facility] Procedures Date Procedure Procedure Detail Performing Clinician Start: 07-29-2024 MRI of lower extremity Dr. Nneka Chamorro MD Work Phone: Start: 07-15-2024 End: 07-15-2024 Intravitreal njx pharmacologic agt spx Ingrid Kumar MD, PhD Work Phone: Start: 07-15-2024 Computerized ophthal tanvi imaging retina Ingrid Kumar MD, PhD Work Phone: Start: 06-04-2024 End: 06-04-2024 Acid fast bacilli culture Dr. Brian Chamorro MD Work Phone: Start: 06-04-[address] Nneka Chamorro MD Work Phone: Start: 06-04-2024 Gram stain microscopy D luz Chamorro MD Work Phone: Start: 06-04-2024 End: 06-04-2024 Microbial culture, body fluid Dr. Nneka Chamorro MD Work Phone: Start: 06-04-[address] Tori Chamorro MD Work Phone: Start: 05-31-[address] Nneka Chamorro MD Work Phone: Start: 05-31-2024 Total iron binding capacity measurement Dr. Nneka Chamorro MD Work Phone: Comment on above: Test not performed Start: 05-20-2024 End: 05-20-2024 Intravitreal njx pharmacologic agt spx Ingrid Kumar MD, PhD Work Phone: Start: 05-20-2024 Computerized ophthal tanvi imaging retina Ingrid Kumar MD, PhD Work Phone: Start: 04-15-2024 Intravitreal njx pharmacologic agt spx Ingrid Kumar MD, PhD Work Phone: Start: 04-15-2024 Computerized ophthal tanvi imaging retina Ingrid Kumar MD, PhD Work Phone: Start: 01-13-2024 Measurement of renal function Dr. Nneka Chamorro MD Work Phone: Comment on above: GFR Calc Start: 09-16-[address] e fraction Dr. 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 Exudative age-related macular degeneration of left eye with inactive scar (HCC) Expected: 07/30/2025, Expires: 01/06/2026 [facility] Work Phone: Comment on above: Expected: 07/30/2025, Expires: Start: 06-04-2025 End: 11-11-2025 OCT MACULA CIRRUS OU (BOTH EYES) OCT MACULA CIRRUS OU (BOTH EYES) [facility] Imaging Routine Exudative age-related macular degeneration, right eye, with active choroidal neovascularization (HCC) 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 Exudative age-related macular degeneration of left eye with inactive scar (HCC) Expected: 06/04/2025, Expires: 11/11/2025 [facility] Work Phone: Comment on above: Expected: 06/04/2025, Expires: Start: 04-30-2025 End: 10-07-2025 OCT MACULA CIRRUS OU (BOTH EYES) OCT MACULA CIRRUS OU (BOTH EYES) [facility] Imaging Routine Exudative age-related macular degeneration, right eye, with active choroidal neovascularization (HCC) 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 Exudative age-related macular degeneration of left eye with inactive scar (HCC) Expected: 04/30/2025, Expires: 10/07/2025 [facility] Work Phone: Comment on above: Expected: 04/30/2025, Expires: Start: 09-30-2024 End: 09-30-2024 Patient encounter procedure 09/30/2024 9:45 AM EDT Office Visit [facility] [address] [place], [place] [id number] Ingrid Kumar MD, PhD [address] [place] [address] STI eylea HD OU/ OCT. Ophthalmology Comment on above: STI eylea HD OU/ OCT. Start: 07-15-2024 End: 07-15-2024 Patient encounter procedure 07/15/2024 10:30 AM EDT Office Visit [facility] [address] [place] [address] Ingrid Kumar MD, PhD [address] [place] [address] *STI eylea HD OU/ OCT. Ophthalmology Comment on above: *STI eylea HD OU/ OCT. Start: 06-04-2024 Acid Fast Bacilli Culture Acid Fast Bacilli Culture [facility] Start: 06-04-2024 Acid Fast Bacilli Smear Acid Fast Bacilli Smear [facility] Start: 06-04-2024 Fungal Culture Fungal Culture [facility] Start: 06-04-2024 Acid fast bacilli culture [facility] Start: 05-20-2024 End: 05-20-2024 Patient encounter procedure 05/20/2024 8:30 AM EST Office Visit [facility] [address] [place] [address] Ingrid Kumar MD, PhD [address] [place] [address] STI avastin both eyes/OCT. Ophthalmology Comment on above: STI avastin both eyes/OCT. Start: 03-17-2024 Advance Directive Discussion Advance Directive Discussion [facility] Start: 11-16-2023 Covid-19 Vaccine ( season) Covid-19 Vaccine () [facility] Start: 12-05-2017 Shingrix Vaccine (2 of 2) Shingrix Vaccine (2 of 2) [facility] Start: 1997 Diabetes Screening Diabetes Screening [facility] Start: 1997 Screening for malignant neoplasm of colon [facility] Start: 1987 Lipid panel Lipid Screening [facility] Start: 1970 Anxiety Screening Anxiety Screening [facility] Start: 1970 Depression Screening Depression Screening [facility] Start: 1970 Hepatitis C screening Hepatitis C Screening [facility] Start: 1952 Abdominal aortic aneurysm screening Abdominal Aortic Aneurysm Screening [facility] Fungus identified in Unspecified specimen by Culture [facility] Mycobacterium sp identified in Unspecified specimen by Organism specific culture [facility] Payers Date Payer Category Payer Self-pay [id number] 2023 Medicare [employer] [place] [id number] 2023-Present [phone] [address] [place] [address] O [id number] 2023 [place] Care[place] [id number] 2021 Medicare [id number] Medicare [id number] Unknown ANTHEM [id number] Unknown [id number] 2.840.1.771588.3.579. 2.462 Unknown [id number] 2.840.1.971763.3.579. 2.462 Unknown [id number] 2.840.1.616458.3.579. 2.462 Unknown [id number] 2.840.1.270228.3.579. 2.462 Unknown [id number] 2.16840.1.429682.3.579. 2.462 Unknown [id number] 2.16.840.1.336148.3.579. 2.462 Unknown [id number] 2.16.840.1.230666.3.579. 2.462 Unknown [id number] 2.16840.1.429578.3.579. 2.462 Unknown [id number] 2.16840.1.465830.3.579. 2.462 Unknown [id number] 2.16.840.1.659762.3.579. 2.462 Unknown [id number] 2.16.840.1.947123.3.579. 2.462 Unknown [id number] 2.16.840.1.617126.3.579. 2.462 Unknown [id number] 2.16.840.1.090859.3.579. 2.462 Unknown [id number] 2.16.840.1.291681.3.579. 2.462 Unknown [id number] 2.16.840.1.726727.3.579. 2.462 Unknown [id number] 2.16.840.1.545129.3.579. 2.462 Unknown [id number] 2.16.840.1.603580.3.579. 2.462 Unknown [id number] 2.16.840.1.109589.3.579. 2.462 Unknown [id number] 2.16.840.1.866361.3.579. 2.462 Unknown [id number] 2.16.840.1.900171.3.579. 2.462 Unknown [id number] 2.16.840.1.996754.3.579. 2.462 Unknown [id number] 2.16.840.1.676992.3.579. 2.462 Social History Date Type Detail Facility Tobacco smoking stat [facility] Unknown if ever smoked [facility] Work Phone: Start: 1950 Sex Assigned At Male W [facility] Tobacco smoking stat [facility] Tobacco smoking consumption unknown [facility] Start: 04-15-2024 End: 07-15-2024 History of Social function [facility] Start: 04-15-2024 End: 07-15-2024 Area Deprivation Index [facility] National Score (1-10 0), lower number is lower risk 57 [facility] Start: 1950 Sex assigned at Not on file [facility] Start: 05-20-2024 End: 07-27-2024 Tobacco smoking status NHIS Ex-smoker [facility] Start: 03-17-1996 History of tobacco use Current smoke r [facility] Start: 03-17-1996 History of tobacco use Cigarette Smo ker [facility] Start: 05-20-2024 Tobacco use and exposure Smoke less tobacco non-user [facility] Start: 05-20-2024 End: 07-15-2024 Alcoholic beverage intake Lifetime non-drinker (finding) [facility] Start: 06-10-2024 Sex Male (finding) [facility] Clinical Notes 03-03-2024 to 08-22-2024 Patient Ingrid Flanagan MD, PhD - 07/15/2024 11:58 AM EDT Note Date & Type Note Facility 08-22-2024 Note [facility] Medical Records Department [address] [place] [address] History Physical Exam 08/22/242112 MR#: [id number] Acct: [id number] Name: AMPARO CANTU Rep #: [id number] : 1950 74 From: Millicent EDMOND PCP: Dr. Nneka Chamorro MD Status:PRE [facility] Location: [facility] History and Physical History and Physical Patient Name: Amparo Plascencia KristanretaDOB: 1950 From: MILLICENT MASON PA-C DATE OF PRE-OPERATIVE EXAM: 08/13/2024 DATE OF SURGERY: 08/23/2024 SCHEDULED PROCEDURE: Robotic assisted left total knee arthroplasty HISTORY OF PRESENT ILLNESS: He reports that his left knee pain has been bothering him more recently, primarily located over the inner part of the knee. Patient states that his pain is described as sore. Patient states that sitting, resting, elevating, walking helped alleviate his pain. Patient states that he no longer feels comfortable completing bathing, showering, housework without difficulty due to his knee. Patient reports recent exacerbation of his symptoms. He denies that the pain wakes him up at night. Mr. Duque mentions a fluid collection on his right hip that resulted from a fall on when he hit a brick wall while carrying desserts down steps. He reports applying a heating pad to the area for 30-45 minutes daily. The patient states that the fluid collection was previously larger, and Dr. Chacko had aspirated fluid from it. He denies any redness in the area. Mr. Duque mentions that he has previously received knee injections without significant success. 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 He denies difficulty going up and down stairs. The patient's living situation suggests a multi-story home, as he mentions carrying desserts down steps on . Patient states that he has tried rest, cortisone injection, home exercises, chiropractor, oral medications with no help. Patient states he has tried gel injections with help. Patient states he has not tried ice, heat, physical therapy. Patient has received 6 cortisone injections as well as gel injections. Patient denies ever having surgery on affected joint. REVIEW OF SYSTEMS: Review Of Systems: Constitutional: Denies anorexia, change in appetite, fever, difficulty sleeping, weight change. Cardiovasular: Denies chest pain, heart murmur, irregular heartbeat and peripheral vascular disease. Respiratory: Denies asthma, cough, pneumonia, sleep apnea, shortness of breath, tuberculosis and wheezing. Gastrointestinal: Reports diarrhea, but denies constipation, heartburn, nausea, rectal itching, bloody stools and vomiting. Genitourinary: . (F Genital Sx) Denies incontinence. Musculoskeletal: Denies leg swelling, pain, trouble walking and weakness. Skin: Denies Raynaud's, history of shingles and tattoo. Neurological: Reports numbness/tingling but denies ambulatory dysfunction, dizziness and tremor. Psychiatric: Reports insomnia, but denies anxiety, depression, mental illness and stress. Hematologic/Lymphatic: Denies anemia, bleeding/bruising tendency and past transfusion. Reviewed, no changes. PAST MEDICAL HISTORY: Advance Care Plan: No Advance Directives Effective Date: 03/06/2023 Past Medical History: Medical Problems: Arthritis, High Blood Pressure, Fibrosis of the liver, Wet Macular Degeneration Accidents: Left And Right Bicep Injury Surgical Hx: Hernia Repair - (1969) [facility] [place] Bicep Tendons - MARANDA Lasik - BOTH EYES Deviated Septum Shoulder Arthroscopy LT - (03/06/2016) [email or web address] Anesthesia Complications: None Assistive Devices: Glasses Reviewed, no changes. 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 Personal Habits: Tobacco Use: Patient is a former smoker.Cigarette Use: Former.Smokeless Tobacco: Never Used Smokeless Tobacco.E-Cigarette Use: Never used.Alcohol: Weekly use.Drug Use: Denies Use.Enjoy Exercising: Exercises 1-3 X/Week. Reviewed, no changes. VITALS: Ht: 71.5 Wt: 218lb Wt k.885 BMI: 30.0 BP: 120/73 Pulse: 72 Resp: 11 T: 97.3 T: 36.3C Pain Level: 09/23 O2SatR: 95 ALLERGIES: No Known Drug Allergy MEDICATIONS: Omeprazole 40 mg 1 cap po daily, Lisinopril 10 mg 1 by mouth every day, Preservision Areds 2 Areds 2 as directed, Aspirin Adult Low Dose 81 mg by mouth 1 a day, Vitamin C 500 mg 1 by mouth every day, Glucosamine Chondroitin 1500 Complex Maximum Strength 1500 Com, Metronidazole 0.75 % apply to affected area 2 times a day, Hydrocortisone (Perianal) 2.5 % apply 1 application to affected area twice daily, Vitamin E 400 Unit daily PRE-OP EXAM: General appearance:NORMAL Other: Eyes: Conjunctivae and lids: NORMAL Pupils: ERR Ears, Nose, Mouth, and Throat: NORMAL Other: Ins (more content not included)... [facility] 07-30-2024 Radiology Diagnostic study note [facility] Services [address] [place] [address] Extremity Lower without Contra MR#: [id number] Acct: [id number] Name: AMPARO CANTU Rep #: [id number] : 1950 M 74 From: Surinder Cordova MD PCP: Dr. Nneka Chamroro MD Status: REG CLI Study:Extremity Lower without Contra Date of Exam: 07/29/24 Exam# [id number] Ordering Dr: Rochelle Haji MD PROCEDURE: EXTREMITY LOWER WITHOUT CONTRA 07/29/2024 REASON FOR EXAM: PAIN IN LEFT KNEE Hu protocol. TECHNIQUE: Axial CT images of the hip, knee and ankle joint obtained without intravenous contrast. Coronal and Sagittal reconstruction series were provided. One or more dose reduction techniques were used (e.g., Automated exposure control, adjustment of the mA and/or kV according to patient size, use of iterative reconstruction technique). RADIATION DOSE SUMMARY: CTDlvol: 16.08 mGy DLP: 1562.5 mGycm COMPARISON: None FINDINGS: Bones: No evidence of fracture. Joints: Imaging of the left hip was performed. There is good alignment. No significant joint space narrowing is seen. Imaging of the knee joint was obtained. There is a marked degree of joint spacenarrowing involving the medial compartment of the knee joint with degenerative spur formation. There is also evidence of joint space narrowing of the patellofemoral joint with degenerative spur formation along the anterior femoral condyle. There are 2 partially calcified densities in the posterior aspect of the knee joints suggestive of joint mice. The larger density measures1.7 mm. Small joint effusion. Imaging of the ankle joint was performed. No significant abnormality is seen. Soft Tissues: Small knee joint effusion. 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 Reading Location: [id number] CC: Dr. Nneka Chamorro MD; Dr. Farshad Haji MD ~ [place]: Signed [facility] 07-15-2024 Note Date of Procedure 07/15/2024 [place] Protocol Safety Checklist A moment of CARE was completed Sign In Sign in communication not applicable due to emergent procedure. Personnel directly involved with the procedure wore the appropriate PEE. Special Equipment: yes. Patient/surrogate stated/verified patient name, date of , relevant allergies, intended procedure. Provider Confirms: Relevant labs, photos, and/or imaging studies have been reviewed. Intended patient and procedure match the source document(s) (e.g. consent, associated studies [imaging, pathology]). Consent obtained and matches the intended procedure. Correct side/site marked and visible. Medications required for procedure verified. Fire risk assessed and interventions discussed: N/A. Correct implant(s) confirmed including size and side, expiration date(s) reviewed. Sign Out All specimens are correctly labeled and sent: N/A. All instruments, equipment, possible retained foreign bodies accounted for. Post-procedure POC communicated to patient or surrogate. Post-procedure POC communicated to patient's multidisciplinary team. Anesthesia 0.5 mL subconjunctival injection of 2% Lidocaine, 1-2 drops Topical 0.5% Proparacaine. Prep 5% Betadine. Injection Administration Medication: 8 mg aflibercept ophthalmic intravitreal 8 mg/0.07 mL Route: INTRAVITREAL, Site: Right Balance Wasted Residual medication less than 1 unit was discarded. Anterior Chamber Paracentesis No. Post Injection Evaluation Patient has at least hand motion vision. Post Procedure Medications None. Home Going Prescription None. [facility] 07-15-2024 Note Date of Procedure 07/15/2024 [place] Protocol Safety Checklist A moment of CARE was completed Sign In Sign in communication not applicable due to emergent procedure. Personnel directly involved with the procedure wore the appropriate PEE. Special Equipment: yes. Patient/surrogate stated/verified patient name, date of , relevant allergies, intended procedure. Provider Confirms: Relevant labs, photos, and/or imaging studies have been reviewed. Intended patient and procedure match the source document(s) (e.g. consent, associated studies [imaging, pathology]). Consent obtained and matches the intended procedure. Correct side/site marked and visible. Medications required for procedure verified. Fire risk assessed and interventions discussed: N/A. Correct implant(s) confirmed including size and side, expiration date(s) reviewed. Sign Out All specimens are correctly labeled and sent: N/A. All instruments, equipment, possible retained foreign bodies accounted for. Post-procedure POC communicated to patient or surrogate. Post-procedure POC communicated to patient's multidisciplinary team. Anesthesia 0.5 mL subconjunctival injection of 2% Lidocaine, 1-2 drops Topical 0.5% Proparacaine. Prep 5% Betadine. Injection Administration Medication: 8 mg aflibercept ophthalmic intravitreal 8 mg/0.07 mL Route: INTRAVITREAL, Site: Left Balance Wasted Residual medication less than 1 unit was discarded. Anterior Chamber Paracentesis No. Post Injection Evaluation Patient has at least hand motion vision, Artery is perfused on ophthalmoscopy. Post Procedure Medications None. Home Going Prescription None. [facility] 07-15-2024 Instructions Ingrid Kumar MD, PhD - 07/15/2024 12:03 PM EDT Post Injection Patient Information You had eye injection(s) today. These are your after injection instructions. Today: Preservative free artificial tears 1 drop every hour while awake as needed Tomorrow: Preservative free artificial tears 1 drop every 2 hours while awake as needed Care instructions after eye injections: Do not rub or touch your eye other than dabbing lightly with a tissue An trzl-xcx-njtutfh pain reliever (i.e. Tylenol) can be used for mild soreness Use artificial tears/lubricating drops once an hour as needed for comfort (chill the tears in the refrigerator for more comfort). If you are using the tears more than 4 times a day they need to be the preservative free kind Warm or cool compresses are okay It is okay to shower and wash your face. No swimming pools or saunas for 24 hours COMMON symptoms after successful eye injections: Mild to moderate pain or irritation beginning the day of the injection. This should begin to improve the following day. Eyelash in the eye or lópez/gritty sensation Tearing Mild floaters or bubbles in your vision - usually resolves after 1-2 days Bloody tears for 1-2 days after treatment Eye Redness Also known as subconjunctival hemorrhage This bruise can cover the entire white part of the eye and may last a few weeks CONCERNING symptoms after eye injections: Severe, constant pain Worsening pain after the first day Decreased vision Severe, constant floaters Curtain or veil in your vision New eye redness that was not there after the injection and covers the whole eye Please call the office immediately for any of the above listed concerning symptoms or with any other questions. 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 Findings include CNV, Epiretinal membrane, IS/OS junction, RPE Irregularity, Atrophy; Negative for Intraretinal fluid, Subretinal fluid. Left Eye Abnormal foveal contour. Findings include Lamellar hole, IS/OS junction, RPE Irregularity, Atrophy; Negative for Intraretinal fluid, Subretinal fluid. [facility] 07-15-2024 Note HNO ID: [id number] Author: INGRID KUMAR MD, PhD Service: ? 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 -history of smoking N -history of plaquenil: No -history of pentosan: No -rec AREDs 2 vitamins/amsler grid monitoring -s/p multiple syvofre in both eyes (at [facility]), would rec stopping StOPPED SYFOVRE 4.posterior chamber intraocular lens (PCIOL) both eyes -stable Plan: Sp Eylea HD both eyes #1 8w without fluid OU Rec Eylea HD#2 OU Extend to 10-11 wks for STI Full exam Aug Consider [facility] protocol AO study - but he doesn't qualify (not naive) I have confirmed and edited as necessary the relevant HPI, ophthalmic history, ROS, and the neuro exam findings as obtained by others. I have seen and examined Amparo Cantu. I have discussed the case and the management of this patient's care with the Resident/Fellow, if applicable. I also have reviewed and agree with the assessment and plan as stated above and agree with all of its relevant components. 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 -history of smoking N -history of plaquenil: No -history of pentosan: No -rec AREDs 2 vitamins/amsler grid monitoring -s/p multiple syvofre in both eyes (at [facility]), would rec stopping StOPPED SYFOVRE 4.posterior chamber intraocular lens (PCIOL) both eyes -stable Plan: Sp Eylea HD both eyes #1 8w without fluid OU Rec Eylea HD#2 OU Extend to 10-11 wks for STI Full exam Aug Consider [facility] protocol AO study - but he doesn't qualify (not naive) I have confirmed and edited as necessary the relevant HPI, ophthalmic history, ROS, and the neuro exam findings as obtained by others. I have seen and examined Amparo Cantu. I have discussed the case and the management of this patient's care with the Resident/Fellow, if applicable. I also have reviewed and agree with the assessment and plan as stated above and agree with all of its relevant components. Ingrid Kumar MD documented in this encounter [facility] 05-31-2024 Evaluation note Diagnosis Onset Date Resolution Elevated ferritin chronic May 152024 10:22am Liver fibrosis chronic May 10:22am Low serum iron resolved May 10:22am Polycythemia resolved May 31, 2024 10:22am [facility] Work Phone: 1(803) 412-858303-06-2025 NoteDate of Procedure 05/20/2024 [place] Protocol Safety Checklist Sign In: A moment to CARE completed, Special equipment verified, Appropriate PPE verified, Patient name, date of , allergies and intended procedure verified. Provider Confirms: Intended patient and procedure match the source document, Consent documented and matches the intended procedure, Correct side/site marked visible. Relevant labs, photos, and/or imaging studies have been reviewed. Medications required for procedure verified. Fire risk assessed and interventions discussed. No implants. Anesthesia 0.5 mL subconjunctival injection of 2% Lidocaine, 1-2 drops Topical 0.5% Proparacaine. Prep 5% Betadine. Injection Administration Medication: 8 mg aflibercept ophthalmic intravitreal 8 mg/0.07 mL Route: INTRAVITREAL, Site: Left Balance Wasted Residual medication less than 1 unit was discarded. Anterior Chamber Paracentesis No. Post Injection Evaluation Patient has at least hand motion vision, Artery is perfused on ophthalmoscopy. Post Procedure Medications None. Home Going Prescription None. Sign Out Sign out discussion completed, All instruments, equipment, and/or possible retained foreign bodies accounted for, Post-procedure follow up management communicated. No specimens.[facility]03-06-2025 NoteDate of Procedure 05/20/2024 [place] Protocol Safety Checklist Sign In: A moment to CARE completed, Special equipment verified, Appropriate PPE verified, Patient name, date of , allergies and intended procedure verified. Provider Confirms: Intended patient and procedure match the source document, Consent documented and matches the intended procedure, Correct side/site marked visible. Relevant labs, photos, and/or imaging studies have been reviewed. Medications required for procedure verified. Fire risk assessed and interventions discussed. No implants. Anesthesia 0.5 mL subconjunctival injection of 2% Lidocaine, 1-2 drops Topical 0.5% Proparacaine. Prep 5% Betadine. Injection Administration Medication: 8 mg aflibercept ophthalmic intravitreal 8 mg/0.07 mL Route: INTRAVITREAL, Site: Right Balance Wasted Residual medication less than 1 unit was discarded. Anterior Chamber Paracentesis No. Post Injection Evaluation Patient has at least hand motion vision. Post Procedure Medications None. Home Going Prescription None. Sign Out Sign out discussion completed, All instruments, equipment, and/or possible retained foreign bodies accounted for, Post-procedure follow up management communicated. No specimens.[facility]03-06-2025 Instructions* Patient Instructions* Ingrid Kumar MD, PhD - 05/20/2024 9:04 AM EST Post Injection Patient Information You had eye injection(s) today. These are your after injection instructions. Today: Preservative free artificial tears 1 drop every hour while awake as needed Tomorrow: Preservative free artificial tears 1 drop every 2 hours while awake as needed Care instructions after eye injections: Do not rub or touch your eye other than dabbing lightly with a tissue An oqqu-jfs-zfzbfwc pain reliever (i.e. Tylenol) can be used for mild soreness Use artificial tears/lubricating drops once an hour as needed for comfort (chill the tears in the refrigerator for more comfort). If you are using the tears more than 4 times a day they need to be the preservative free kind Warm or cool compresses are okay It is okay to shower and wash your face. No swimming pools or saunas for 24 hours COMMON symptoms after successful eye injections: Mild to moderate pain or irritation beginning the day of the injection. This should begin to improve the following day. Eyelash in the eye or lópez/gritty sensation Tearing Mild floaters or bubbles in your vision - usually resolves after 1-2 days Bloody tears for 1-2 days after treatment Eye Redness Also known as subconjunctival hemorrhage This bruise can cover the entire white part of the eye and may last a few weeks CONCERNING symptoms after eye injections: Severe, constant pain Worsening pain after the first day Decreased vision Severe, constant floaters Curtain or veil in your vision New eye redness that was not there after the injection and covers the whole eye Please call the office immediately for any of the above listed concerning symptoms or with any other questions. If it is after hours please call [phone] which will give instructions on how to reach the eye doctor special forces communications sergeant [facility] NoteDate of Procedure 05/20/2024. OCT Macula Interpretation Right Eye Abnormal foveal contour. Findings include Epiretinal membrane, IS/OS junction, RPE Irregularity; Negative for Intraretinal fluid, Cystoid macular edema. Left Eye Abnormal foveal contour. Findings include Intraretinal fluid, Cystoid macular edema, CNV, Pseudohole, IS/OS junction, RPE Irregularity.[id number] NoteHNO ID: [id number] Author: INGRID KUMAR MD, PhD Service: ? 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 2. 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 -history of smoking N -history of plaquenil: No -history of pentosan: No -rec AREDs 2 vitamins/amsler grid monitoring -s/p multiple syvofre in both eyes (at [facility]), would rec stopping 4.posterior chamber intraocular lens (PCIOL) both eyes -stable Plan: S/p avastin #1 right eye 5 weeks ago with no fluid, scar Rec eylea HD #1 today right eye S/p avastin left eye 03/15/24 at [facility] with increased SHRM and IRF Rec Eylea HD#1 left eye Extend to 8-9wks for STI Full exam Aug Consider [facility] protocol AO study - but he doesn't qualify (not naive) I have confirmed and edited as necessary the relevant HPI, ophthalmic history, ROS, and the neuro exam findings as obtained by others. I have seen and examined Amparo Cantu. I have discussed the case and the management of this patient's care with the Resident/Fellow, if applicable. I also have reviewed and agree with the assessment and plan as stated above and agree with all of its relevant components. 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 2. 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 -history of smoking N -history of plaquenil: No -history of pentosan: No -rec AREDs 2 vitamins/amsler grid monitoring -s/p multiple syvofre in both eyes (at [facility]), would rec stopping 4.posterior chamber intraocular lens (PCIOL) both eyes -stable Plan: S/p avastin #1 right eye 5 weeks ago with no fluid, scar Rec eylea HD #1 today right eye S/p avastin left eye 03/15/24 at [facility] with increased SHRM and IRF Rec Eylea HD#1 left eye Extend to 8-9wks for STI Full exam Aug Consider [facility] protocol AO study - but he doesn't qualify (not naive) I have confirmed and edited as necessary the relevant HPI, ophthalmic history, ROS, and the neuro exam findings as obtained by others. I have seen and examined Amparo Cantu. I have discussed the case and the management of this patient's care with the Resident/Fellow, if applicable. I also have reviewed and agree with the assessment and plan as stated above and agree withall of its relevant components. Ingrid Kumar MD [facility] NoteDate of Procedure 04/15/2024 [place] Protocol Safety Checklist Sign In: A moment to CARE completed, Special equipment verified, Appropriate PPE verified, Patient name, date of , allergies and intended procedure verified. Provider Confirms: Correct side/site marked visible, Consent documented and matches the intended procedure, Intended patient and procedure match the source document. Relevant labs, photos, and/or imaging studies have been reviewed. Medications required for procedure verified. Fire risk assessed and interventions discussed. No implants. Anesthesia 0.5 mL subconjunctival injection of 2% Lidocaine, 1-2 drops Topical 0.5% Proparacaine. Prep 5% Betadine. Injection Administration Medication: 1.25 mg bevacizumab ([place]'s) 2.75 mg/0.11 mL Route: INTRAVITREAL, Site: Right Balance Wasted Residual medication less than 1 unit was discarded. Anterior Chamber Paracentesis No. Post Injection Evaluation Patient has at least hand motion vision. Post Procedure Medications None. Home Going Prescription None. Sign Out Sign out discussion completed, All instruments, equipment, and/or possible retained foreign bodies accounted for, Post-procedure follow up management communicated. No specimens.[facility]01-30-2025 Instructions* Patient Instructions* Ingrid Kumar MD, PhD - 04/15/2024 5:25 PM EST Post Injection Patient Information You had eye injection(s) today. These are your after injection instructions. Today: Preservative free artificial tears 1 drop every hour while awake as needed Tomorrow: Preservative free artificial tears 1 drop every 2 hours while awake as needed Care instructions after eye injections: Do not rub or touch your eye other than dabbing lightly with a tissue An xcas-chj-razxqpu pain reliever (i.e. Tylenol) can be used for mild soreness Use artificial tears/lubricating drops once an hour as needed for comfort (chill the tears in the refrigerator for more comfort). If you are using the tears more than 4 times a day they need to be the preservative free kind Warm or cool compresses are okay It is okay to shower and wash your face. No swimming pools or saunas for 24 hours COMMON symptoms after successful eye injections: Mild to moderate pain or irritation beginning the day of the injection. This should begin to improve the following day. Eyelash in the eye or lópez/gritty sensation Tearing Mild floaters or bubbles in your vision - usually resolves after 1-2 days Bloody tears for 1-2 days after treatment Eye Redness Also known as subconjunctival hemorrhage This bruise can cover the entire white part of the eye and may last a few weeks CONCERNING symptoms after eye injections: Severe, constant pain Worsening pain after the first day Decreased vision Severe, constant floaters Curtain or veil in your vision New eye redness that was not there after the injection and covers the whole eye Please call the office immediately for any of the above listed concerning symptoms or with any other questions. 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 OCT Macula Interpretation Right Eye Abnormal foveal contour. Findings include CNV, Epiretinal membrane, IS/OS junction, RPE Irregularity, Atrophy; Negative for Intraretinal fluid, Cystoid macular edema, Subretinal fluid. Left Eye Abnormal foveal contour. 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 2. 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 -history of smoking N -history of plaquenil: No -history of pentosan: No -rec AREDs 2 vitamins/amsler grid monitoring -s/p multiple syvofre in both eyes, would rec stopping 4.posterior chamber intraocular lens (PCIOL) both eyes -stable Plan: Rec avastin today right eye Obserev left eye today Return in 5 weeks for poss EDA both eyes I have confirmed and edited as necessary the relevant HPI, ophthalmic history, ROS, and the neuro exam findings as obtained by others. I have seen and examined Amparo Cantu. I have discussed the case and the management of this patient's care with the Resident/Fellow, if applicable. I also have reviewed and agree with the assessment and plan as stated above and agree withall of its relevant components. Ingrid Kumar MD documented [facility] encounter[facility]25 NoteHNO ID: [id number] Author: INGRID KUMAR MD, PhD Service: ? 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 2. 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 -history of smoking N -history of plaquenil: No -history of pentosan: No -rec AREDs 2 vitamins/amsler grid monitoring -s/p multiple syvofre in both eyes, would rec stopping 4.posterior chamber intraocular lens (PCIOL) both eyes -stable Plan: Rec avastin today right eye Obserev left eye today Return in 5 weeks for poss EDA both eyes I have confirmed and edited as necessary the relevant HPI, ophthalmic history, ROS, and the neuro exam findings as obtained by others. I have seen and examined Amparo Cantu. I have discussed the case and the management of this patient's care with the Resident/Fellow, if applicable. I also have reviewed and agree with the assessment and plan as stated above and agree with all of its relevant components. Ingrid Kumar [facility]12-18-2024 Evaluation note* Diagnosis Onset Date Resolution Status Admit Date Fatty liver acute February 1:18pm Hepatomegaly acute February 1:18pm Elevated ferritin chronic May 152024 10:22am Liver fibrosis chronic May 10:22am Low serum iron resolved May 10:22am Polycythemia resolved May 31, 2024 10:22am [facility] Work Phone: Evaluation noteNo assessment information available [facility] Work Phone: Evaluation note* Diagnosis Exudative age-related macular degeneration, right eye, with active choroidal neovascularization (HCC)- Primary 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 Exudative age-related macular degeneration of left eye with inactive scar (HCC) [facility] Diagnosis Exudative age-related macular degeneration, right eye, with active choroidal neovascularization (HCC) 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 Exudative age-related macular degeneration of left eye with inactive scar (HCC) [facility]Reason for referral (narrative)No reason for referral information availableWTrinity Health [facility] Work Phone: Chief Complaint and Reason for Visit Chief Complaint E ORDER Chief Complaint Admit Date 3 M FU March 03, 2024 1:18pm MED ONC May 31, 2024 9:3 0am 4[facility] LABS May 31, 2024 10: 22am Reason for Visit Admit Date Fatty liver March 03, 2024 1:18pm Hepatomegaly March 03, 2024 1:18pm Elevated ferritin May 31, 2024 10: 22am Liver fibrosis May 31, 2024 10: 22am Low serum iron May 31, 2024 10: 22am Polycythemia May 31, 2024 10: 22am Chief Complaint Admit Date MED ONC May 31, 2024 9:3 0am 4[facility] LABS May 31, 2024 10: 22am LT KNEE PAIN/OA *HU PROTOCOL* July 11:59am PREOP July 29, 2024 12:06 pm Reason for Visit Admit Date Elevated ferritin May 31, 2024 10: 22am Liver fibrosis May 31, 2024 10: 22am Low serum iron May 31, 2024 10: 22am Polycythemia May 31, 2024 10: 22am Family History No Family History Records Found Relationship Condition Age at Onset Recorded Date/T sydnee father Malignant neoplasm of prostate Unknown brother Malignant neoplasm of brain Unknown mother Cardiac disease Unknown Summary Purpose Advance Directives No Advanced Directives Records FoundNo Advanced Directives Records Found Additional Source Comments Goals (unrecognized section and content) Goals may be documented in a n alternate sectionGoals may be documented in an alternate sectionGoals may be documented in an alternate sectionGoals may be documented in an alternate sectionGoals may be documented in an alternate sectionGoals may be documented in an alternate sectionGoals may be documented in an alternate section Care Teams (unrecognized sec tion and content) Team Status: Active Member Role Status Dates Dr. Nneka Chamorro MD Primary Care Provider Acti ve Team Status: Active Member Role Status Dates Dr. Nneka Chamorro MD Primary Care Provider Acti ve Start: May 31, 2024 Dr. Jamie Marquez MD Attending Provider Active S tart: May 31, 2024 Dr. Jamie Marquez MD Referring Provider Active S tart: May 31, 2024 Team Status: Inactive Member Role Status Dates Dr. Nneka Chamorro MD Primary Care Provider Acti ve Start: May 31, 2024 End: May 31, 2024 Dr. Nneka Chamorro MD Referring Provider Active Start: May 31, 2024 End: May 31, 2024 Dr. Jamie Marquez MD Attending Provider Active S tart: May 31, 2024 End: May 31, 2024 Team Status: Inactive Member Role Status Dates Dr. Nneka Chamorro MD Primary Care Provider Acti ve Start: June 04, 2024 End: June 04, 2024 Dr. Farshad Haji MD Attending Provider Active Start: June 04, 2024 End: June 04, 2024 Dr. Farshad Haji MD Referring Provider Active Start: June 04, 2024 End: June 04, 2024 Team Status: Inactive Member Role Status Dates Dr. Nneka Chamorro MD Primary Care Provider Acti ve Start: July 29, 2024 End: July 29, 2024 Dr. Farshad Haji MD Attending Provider Active Start: July 29, 2024 End: July 29, 2024 Dr. Farshad Haji MD Referring Provider Active Start: July 29, 2024 End: July 29, 2024 Team Status: Active Member Role Status Dates Dr. Nneka Chamorro MD Primary Care Provider Acti ve Start: July 29, 2024 End: July 29, 2024 Dr. Dom Malcolm MD Attending Provider Active S tart: July 29, 2024 End: July 29, 2024 Dr. Farshad Haji MD Referring Provider Active Start: July 29, 2024 End: July 29, 2024 Team Status: Active Member Role Status Dates Dr. Brian Chamorro MD Family Provider Active Dr. Brian Chamorro MD Primary Care Provider Activ e Team Status: Inactive Member Role Status Dates Dr. Brian Chamorro MD Primary Care Provider, Attending Provider, Referring Provider Active Team Status: Inactive Member Role Status Dates Dr. Brian Chamorro MD Primary Care Provider, Atte nding Provider Active Transportation Coordinator Relationship Specialty Start Date End Date Nneka Chamorro MD Tim Lockett [address] [place] [address] PCP - General Family Medicine 04/15/24 Transportation Coordinator Relationship Specialty Start Date End Date Nneka Chamorro MD Tim [place] [address] [place] [address] PCP - General Family Medicine 04/15/24 Team Status: Inactive Member Role Status Dates Dr. Nneka Chamorro MD Primary Care Provider Acti ve Start: March 03, 2024 End: March 03, 2024 Dr. Nneka Chamorro MD Referring Provider Active Start: March 03, 2024 End: March 03, 2024 FLEI Watts Attending Provider Active Start: March 03, 2024 End: March 03, 2024 Source Comments (unrecognize d section and content) In the event this informatio n is protected by the Federal Confidentiality of Alcohol and Drug Abuse Patient Records regulations: The Federal rules restrict any use of the information to criminally investigate or prosecute any alcohol or drug abuse patient.[facility] the event this information is protected by the Federal Confidentiality of Alcohol and Drug Abuse Patient Records regulations: The Federal rules restrict any use of the information to criminally investigate or prosecute any alcohol or drug abuse patient.[facility] the event this information is protected by the Federal Confidentiality of Alcohol and Drug Abuse Patient Records regulations: The Federal rules restrict any use of the information to criminally investigate or prosecute any alcohol or drug abuse patient.[facility] Reason for Visit (unrecogniz ed section and content) Reason Comments Exudative Macular Degeneration Follow Up Specialty Diagnoses / Procedures Referred By Contnaga t Referred To Contact Ophthalmology / OPHTHALMOLOGY Diagnoses Exudative age-related macular degeneration, right eye, with active choroidal neovascularization Exudative age-related macular degeneration, left eye, with inactive scar STI avastin both eyes/OCT. Procedures [place] BEVACIZUMAB INJECTION Avastin 1.25 mg both eyes every 4 wks for one year Ingrid Kumar MD, PhD [address] [place] [address] Phone: tel: Ingrid Kumar MD, PhD [address] [place] [address] Phone: tel: fax: Referral ID Status Reason Start Date Expiration Date V isits Requested Visits Authorized [id number] Authorized 05/20/2024 03/16/2025 99 99 (unrecognized sect ion and content) No Status Records FoundNo Status Records Found INFORMATION SOURCE (unrecogn ized section and content) DATE CREATED AUTHOR 07/20/2024 [facility] DATE CREATED AUTHOR AUTHOR'S ORGANIZ ATION 08/22/2024 [facility] FOR RECORDS PERTAINING TO PATIENTS WHO ARE OR HAVE BEEN ENROLLED IN A CHEMICAL DEPENDENCY/SUBSTANCEABUSE PROGRAM, SOME INFORMATION MAY BE OMITTED. This clinical summary was aggregated from multiple sources. Caution should be exercised in using it in the provision of clinical care. This summary normalizes information from multiple sources, and as a consequence, information in this document may materially change the coding, format and clinical context of patient data. In addition, data may be omitted in some cases. CLINICAL DECISIONS SHOULD BE BASED ON THE PRIMARY CLINICAL RECORDS. [employer] provides no warranty or guarantee of the accuracy or completeness of information in this document.
[2024-08-23] MEDS: Lactated Ringers 1,000 ML 15 ML IV (06:25)
[2024-08-23] MEDS: Acetaminophen 500 MG Tablet 1000 MG PO ×3 (06:26→21:05)
[2024-08-23] MEDS: Gabapentin 600 MG Tablet PO (06:26)
[2024-08-23] MEDS: Celecoxib 200 MG Capsule 400 MG PO (06:26)
[2024-08-23] MEDS: Magnesium 1 GM over 15 mins IV (06:26)
--- NOTE | 2024-08-23 06:42 | PCM.PRE.AN2 ---
ASA Classification* ASA Classification ASA Classification: 2 Assessment & Plan Anesthesia* Anesthesia Assessment Anesthesia Assessment: Discussed sedation and/or anesthesia options, risks, benefits, and alternatives with patient/parents/legal guardian/POA. Questions invited. The patient/parents/legal guardian/POA seems to understand and agrees to proceed with anesthesia plan. Reviewed the physical assessment, medical history, allergy history and patient home medications list prior to surgery/procedure/anesthetic and documented any changes. Performed airway and anesthesia risk assessments. Anesthesia Type Anesthesia Type: Spinal and Block Anesthesia Focused Assessment* Temperature: 97.6 F Pulse Rate: 77 Blood Pressure: 110/60 Respiratory Rate: 16 Pulse Ox: 97 Airway Assessment Mouth opens: >3 cm Mallampati Score: II Labs Anesthesia Preop lab: CBC WBC 8.3 K/mm3 (4.4-11.0) 07/29/24 12:07/29/24 RBC 5.75 M/mm3 (4.6-6.2) 07/29/24 12:07/29/24 Hgb 16.5 g/dL (13.0-16.5) 07/29/24 12:34 07/29/24 Hct 49.4 % (40-54) 07/29/24 12:07/29/24 Plt Count 202 K/mm3 (150-450) 07/29/24 12:07/29/24 CHEMISTRY Potassium 4.3 mmol/L (3.3-5.1) 07/29/24 12:07/29/24 Sodium 137 mmol/L (133-145) 07/29/24 12:07/29/24 Magnesium 2.1 mg/dL (1.5-2.2) 07/29/24 12:07/29/24 BUN 18 mg/dL (4-19) 07/29/24 12:07/29/24 Creatinine 0.86 mg/dL (0.70-1.20) 07/29/24 12:07/29/24 Glucose 98 mg/dL (70-99) 07/29/24 12:07/29/24 COAG Pre-Assessment Diagnosis/Proposed Procedure Planned Operative Procedure(s): (L) ERAS, ROBOTIC ASSISTED LEFT TOTAL KNEE ARTHROPLASTY Anesthesia History Anesthesia History - account relationship manager: Anesthesia History - account relationship manager Hx Hospitalization No 07/27/24 15:08 Any Problems With Anesthesia No 07/27/24 15:08 Cholinesterase deficiency No 07/27/24 15:08 You/Your Family Experience No 07/27/24 15:08 fever (hyperthermia) with Relationship Recent Exposure to Contagious No 08/23/24 06:11 Disease Does patient have nerve No 07/27/24 15:08 stimulator Patient instructed to have device shut off --Does patient have Pacemaker No 08/23/24 06:11 or ICD? When Was Last Pacemaker Check QUESTION #4 FULL TEXT: You/Your Family Experience fever (hyperthermia) with Anesthesia Last Oral Intake Last Oral intake: Last Oral Intake NPO since 03:00 08/23/24 06:11 Meds taken in AM with sips of Yes 08/23/24 06:11 water? Meds patient instructed to take am of surgery PONV PONV - account relationship manager: PONV - account relationship manager Female No 07/27/24 15:08 HX of Motion Sickness No 07/27/24 15:08 HX of N/V After Surgery No 07/27/24 15:08 Non-Smoker Yes 07/27/24 15:08 Duration of Surgery greater Yes 07/27/24 15:08 than 60 minutes Number of Risk Factors 2 07/27/24 15:08 PONV Score Moderate Risk 07/27/24 15:08 Height & Weight Height & Weight: Anesthesia: Height & Weight Height 6 ft 08/23/24 06:11 Weight: 98.5 kg 08/23/24 06:11 Body Mass Index (BMI) 29.4 08/23/24 06:11 Respiratory Assessment Respiratory Assessment - account relationship manager: Respiratory Tract Infection Hx - account relationship manager Hx Respiratory Tract Infection Yes: GETTING OVER IT 07/27/24 15:08 STOP Sleep Apnea STOP Sleep Apnea - account relationship manager: STOP Sleep Apnea - account relationship manager Hx Hypertension Yes 07/27/24 15:08 Hx Sleep Apnea Yes 07/27/24 15:08 CPAP No 07/27/24 15:08 BIPAP No 07/27/24 15:08 Do you snore loudly (louder than talking or can be heard Do you often feel tired/ fatigued/ sleepy during daytime? Has anyone observed you stop breathing during sleep? STOP Results Positive 07/27/24 15:08 QUESTION #5 FULL TEXT : Do you snore loudly (louder than talking or can be heard through closed doors)? 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 Specify any problems Hx of Preganancy in last 3 N/A 07/27/24 15:08 Months Nurse Filling Out Transfusion [facility] 07/27/24 15:08 & Questions: Date: 07/27/24 07/27/24 15:08 Time: 15:20 07/27/24 15:08 Patient unable to answer at this time (ie. confused, unrespo /Reproduction History /Reproductive History - account relationship manager: /Reproductive Hx- account relationship manager Hx Now Gestational Age (in weeks): EDC: Hx Hx Para Hx Section SAB Active Medications Active Medications: Current Medications Generic Name Dose Route Start Last Admin Trade Name Freq PRN Reason Stop Dose Admin Acetaminophen 1,000 mg 08/23/24 07:30 08/23/24 06:26 Acetaminophen 500 Mg Tablet PO 08/23/24 07:31 1,000 mg PREOP ONE Administration Celecoxib 400 mg 08/23/24 07:30 08/23/24 06:26 Celecoxib 200 Mg Capsule PO 08/23/24 07:31 400 mg PREOP ONE Administration Sodium Chloride 77.4 ml/ 0 ml 08/23/24 07:30 Ropivacaine 200 mg/ OPERA.SITE 08/23/24 07:31 Epinephrine HCl 0.6 mg/ INTRAOP ONE Ketorolac Tromethamine 30 mg/ Morphine Sulfate 5 mg Dexamethasone Sodium Phosphate 10 mg 08/23/24 07:30 Dexamethasone 10 Mg/Ml Vial IV 08/23/24 07:31 INTRAOP ONE Gabapentin 600 mg 08/23/24 07:30 08/23/24 06:26 Gabapentin 600 Mg Tablet PO 08/23/24 07:31 600 mg PREOP ONE Administration Cefazolin Sodium 2 gm/ Sodium 110 mls @ 150 mls/hr 08/23/24 07:30 Chloride IV 08/23/24 08:13 INTRAOP ONE Tranexamic Acid 1,000 mg/ 110 mls @ 660 mls/hr 08/23/24 07:30 Sodium Chloride IV 08/23/24 07:39 INTRAOP ONE Tranexamic Acid 1,000 mg/ 110 mls @ 660 mls/hr 08/23/24 07:30 Sodium Chloride IV 08/23/24 07:39 INTRAOP ONE Lactated Ringer's 1,000 mls @ 125 mls/hr 08/23/24 07:30 IV 08/23/24 15:29 .Q8H MISAEL Magnesium Sulfate 1 gm/ 102 mls @ 408 mls/hr 08/23/24 07:30 08/23/24 06:26 Dextrose IV 08/23/24 07:44 408 mls/hr INTRAOP ONE Administration Lactated Ringer's 1,000 mls @ 15 mls/hr 08/23/24 06:00 08/23/24 06:25 IV 15 mls/hr .Q48H MISAEL Administration Insulin Human Lispro 1 - 6 unit 08/23/24 07:30 Insulin Lispro 100 Unit/Ml Insuln.Pen SC Q4H PRN PRN BG>/= 180, SEE PROTOCOL Protocol PFSH Medical History Macular degeneration Wears glasses Arthritis Former smoker Psoriasis, guttate Acid reflux disease JORGE (obstructive sleep apnea) Hypertension Gout Low testosterone Elevated hemoglobin Home Medications ?Medication ?Instructions ?Recorded ?Last Taken ?Type hydrocortisone 2.5 % topical cream 1 applic topical BID PRN rash 09/10/23 Unknown History lisinopril 10 mg tablet 10 mg PO DAILY 09/10/23 08/22/24 History metronidazole 0.75 % topical cream 1 applic topical DAILY 09/10/23 Unknown History omeprazole 40 mg capsule,delayed 40 mg PO DAILY 09/10/23 08/23/24 03:00 History release fluticasone propionate 50 1 spray intranasal DAILY PRN 09/16/23 Unknown History mcg/actuation nasal allergy symptoms spray,suspension vit C 250 mg-E 90 mg-zinc 40 1 tab PO QAM AND QPM 09/23/23 08/19/24 History mg-copper 1 mo-suutjg-khfrzm chew tablet (PreserVision AREDS-2) vitamin E mixed 400 unit tablet 800 unit PO DAILY 01/13/24 08/19/24 History cholecalciferol (vitamin D3) 50 50 mcg PO DAILY 07/27/24 08/19/24 History mcg (2,000 unit) capsule (Vitamin D3) Allergy/AdvReac Type Severity Reaction Status Date / Time No Known Drug Allergies Allergy none Verified 08/23/24 06:10 Family History Father , 82 Prostate cancer Brother , half brother Brain cancer Mother , 66 Heart disease valve replacement Surgical History Bilateral cataracts Biceps tendon tear History of hernia surgery H/O repair of left rotator cuff History of nasal surgery Social History housing: house current occupational status: retired Smoking Status: Former smoker quit date: 03/17/96 pack-years: 25 alcohol intake: former substance use type: does not use Review of Systems (Anesthesia) ROS Narrative System reviewed and no additional complaints, except as documented.
[2024-08-23 06:56] LABS: Bedside Glucose 91 mg/dL (74-106)
[2024-08-23] MEDS: LR 1,000 ML - 125 ML/HR (POST BOLUS) POST OP IV ×2 (07:45→13:10)
[2024-08-23] MEDS: Cefazolin 2 GM in 0.9% Normal Saline (100mL Bag) 100 ML IV (07:45)
[2024-08-23] MEDS: TXA 1000mg in NS100 100ml (IVPB at Incision) 660 MG IV (07:50)
[2024-08-23] MEDS: dexAMETHasone 10 MG/ML Vial IV (07:55)
[2024-08-23] MEDS: TXA 1000mg in NS100 100ml (IVPB at Closure) 660 MG IV (08:33)
[2024-08-23] MEDS: JPS (Morphine 10mg/ml) OPERA.SITE (08:45)
--- NOTE | 2024-08-23 09:00 | PCM.OPRPT ---
Operative Report (Standard) Operative Information Date of Procedure: 08/23/24 Pre-Operative Diagnosis: Left knee primary osteoarthritis Post-Operative Diagnosis: Left knee primary osteoarthritis Surgery/Procedure Performed: Left knee minimally invasive robotic assisted total arthroplasty software test analyst: Yes Industrial Economics Teacher: Millicent Fernandez Tasks completed by accounting administrative assistant: Other (See body of operative report) Additional unit assistant?: No Type of Anesthesia: Spinal RN Documented Start/Stop Times: Operation Date: 08/23/24 07:30 Case Time Into Pre-Op 08/23/24 05:51 Out of Pre-Op 08/23/24 07:15 Anesthesia Start 08/23/24 07:28 Into Room 08/23/24 07:28 Procedure Start 08/23/24 07:57 Procedure End 08/23/24 09:40 Anesthesia End 08/23/24 09:46 Out of Room 08/23/24 09:46 Into Recovery 08/23/24 09:48 Procedure Start Time: 07:57 Procedure Stop Time: 09:40 Select all DRAINS/GRAFTS/IMPLANTS that apply: Prosthetic device Prosthetic device details: See body of operative report Special Medications: 2 g Ancef, 1 g TXA at incision, 1 g TXA closure, 10 mg Decadron, joint cocktail (5 mg Duramorph, 30 mL of 0.5% Ropivicaine, 1000 units of epinephrine, 30 mg of Toradol) Estimated Blood Loss: 250 mL Fluids Replaced: 1000 mL crystalloid Specimen collected: Yes Description of specimen(s) removed: Bony cuts Description of surgery: Implants used: 1. Srinivas size 6 triathlon cruciate retaining distal femoral press-fit component 2. Srinivas size 7 press-fit tritanium tibial baseplate 3. [place] X3 10 mm CS polyethylene 4. [place] X3 38 mm asymmetric patella Brief history operative indications: 74-year-old M with history of left knee osteoarthritis with radiographic findings with loss of joint space, osteophyte formation and subchondral sclerosis. Failed conservative measures as mentioned in the H&P. Discussion of total knee arthroplasty as well as risk and benefits were discussed the patient including but not limited to blood loss, DVTs, PEs, neurovascular damage, general risk of anesthesia including loss of life, and stiffness or instability were discussed with patient. Patient demonstrated understanding and was able to sign informed consent. Procedure: On the date of procedure patient's left lower extremity was marked in the preoperative area. The patient was then taken back to the operating room where the patient was placed on the table in the supine position. All bony prominences were identified a well-padded. Anesthesia assumed control of the C-spine and airway and remained controlled throughout the remainder of the procedure. A tourniquet was placed on the left upper thigh and the leg was prepped in a sterile fashion. The surgeon then scrubbed at this time .Upon reentering the room left lower extremity was draped in a standard orthopedic fashion. A timeout was then called and everyone agreed upon the side, the site, the procedure to be performed, patient's identity and antibiotics given. Esmarch bandage was used to exsanguinate the extremity and the tourniquet was placed up to 250 mmHg with the knee in flexion. A midline skin incision was made and sharp dissection was taken down through skin subcutaneous tissue and fat. The standard medial parapatellar incision was made and the patella was subluxed laterally. An Appropriate deep MCL release was done and the fat pad was resected. Our attention was then directed to the patella. The patella was everted and a flat resection was made. The knee was then flexed up in 2 femoral pins were placed inside the incision and 2 tibial pins were placed outside the incision in the medial tibia bicortically. Once this was completed the 2 checkpoints in the femur and tibia were placed. Knee was then flexed up and the bony landmarks were registered. Once this was completed knee was taken through range of motion and manually stressed allowing us to a plan for an appropriate tibial cut. The robotic arm was brought into the field sterilely and checkpoint and saw were registered. Based on the patient's deformity the tibial cut was made in 2 degrees varus. At this time the tensioner was then placed in the joint and ligament tension was checked at 90 degrees and full extension. Based on the patient's ligamentous tension appropriate adjustments were made to the operative plan and ligament releases were done. Once we were happy with our operative plan with balanced flexion and extension gaps our attention was directed to the femur. The robot was brought into the field sterilely and registered. Posterior condylar cuts, anterior chamfer cuts and anterior cuts were appropriately made for a size 6 femur. When these were completed the saws were switched out in the distal femoral and posterior chamfer cuts were made. Protecting the soft tissue throughout this time. A size 7 tibial base plate was selected. the knee was flexed to 90 degrees and the soft tissues and posterior osteophytes were removed from the joint. 40 cc of the periarticular injection was injected into the posterior medial corner of the joint. The appropriate trials were then placed on the femur and tibia. A trial polyethylene was trialed to ensure proper balancing and stability of the knee. The appropriate tibial internal rotation was then marked with a bovie. Our attention was then directed to the patella. The lug holes were drilled and the patella trial was placed. Patellar tracking was checked and deemed appropriate. Once we were happy lug holes were drilled for the femur and trial components were removed. The tibia was subluxed and pinned into place and the keel was punched and drilled appropriately. Final components were verified and opened. The wound was copiously irrigated with normal saline. When the cement was ready the components were impacted into place starting with the tibia then the femur, finally the patella was compressed into place. The trial poly component was placed and the knee was placed in full extension. Once the the implants were secured, the tracking, alignment and balance were verified and a size 10 mm CS polyethylene component was placed. Once the final components were placed a 3-minute dilute Betadine lavage was performed followed by an Irrisept lavage was performed and the wound was copiously irrigated with normal saline solution and the periarticular injection was given. The wound was closed in a layer vieyra fashion using #1 vicryl interrupted sutures for the arthrotomy, 2-0 interrupted Vicryl suture for the subcuticular layer and clarice for final skin closure. A sterile compressive dressing was then placed. The patient was then awakened from anesthesia, transferred to the [facility] and transferred to the PACU for recovery. Post op plan DVT ppx: ASA 81mg BID, thigh high compression stockings Follow up: in office in 2 weeks for wound check PT: to start POD #0 at hospital, outpatient PT should be arranged. My physician unit assistant was a vital part of this case, they was important because there was not another skilled set of hands available to their training and aptitude needed for safe and appropriate completion of this case. They were important in appropriate retraction during the case, and protection of soft tissues during bony cuts. In particular the experience and skill of this unit assistant made for safe retraction and exposure during implantation of medical implants without damage to vital soft tissues or structures. His intimate knowledge of the case and my steps aided in safe and expedient completion of the procedure as well as appropriate position of the leg during the case. He was also vital in assisting with closure under my direct supervision. Due to the complexity of this case robotic arm was used to assist in the surgery to improve accuracy and clinical outcomes. Surgical Findings: Stage IV osteoarthritis. Stable knee with good patella tracking Complications Complications: No Admit VTE Documentation VTE Present on Admission: No VTE Mechan Device Prophylaxis: SCD's and Thigh High SALVATORE Hose VTE Pharm Prophylaxis ordered?: Yes
--- NOTE | 2024-08-23 10:08 | PCM.POST.ANE ---
Anesthesia: Postop Eval I Current Vital Signs Temperature: 98.3 F Pulse Rate: 83 Blood Pressure: 118/66 Respiratory Rate: 16 Pulse Ox: 96 Oxygen Delivery Method: Room Air Assessment Airway patent: Yes Spontaneous unlabored respirations: Yes Mental status: Awake and Calm nausea: No Vomiting: No Anesthesia Complication: No Fluid Hydration Crystalloid volume administer (ml): 1,200 Total IV fluid infused: 1,200 Progress Note Anesthesia document: Postop Eval 1 completed: Yes
--- NOTE | 2024-08-23 10:18 | RAD_ITS ---
PROCEDURE: KNEE 1 OR 2 VIEWS 08/23/2024 REASON FOR EXAM: ARTHROPLASTY TECHNIQUE: Two views of the left knee were obtained. COMPARISON: None. FINDINGS: AP and lateral views of the left knee demonstrate a total knee arthroplasty. The patellar, femoral and tibial components appear normal apposition. There is no evidence of complications. There is normal postoperative air and fluid in the knee joint. Skin clarice are over the knee anteriorly. RAD/Knee 1 or 2 Views IMPRESSION: Status post total knee arthroplasty. No complications evident. Reading Location: [place] [address]
[2024-08-23] MEDS: Ketorolac 15 MG/ML Vial IV (10:25)
--- NOTE | 2024-08-23 10:51 | POSTOPAN2_ITS ---
Anesthesia Postop Eval I Sum Postop Eval Completion status Anesthesia document: Postop Eval 1 completed: Yes Anesthesia Postop Eval I Summary Anesthesia Postop Eval I Summary: Anesthesia Postop Eval I: Assessment Summary Airway patent Yes 08/23/24 10:08 [place] [email or web address] Spontaneous unlabored Yes 08/23/24 10:08 [place] [facility] respirations Mental status Awake,Calm 08/23/24 10:08 [place] [facility] nausea No 08/23/24 10:08 [place] [facility] Vomiting No 08/23/24 10:08 [place] [facility] Anesthesia Postop Eval I: Fluid Summary Crystalloid volume administer 1,200 08/23/24 10:08 [place] [facility] (ml) Colloids volume administered ( ml) Blood Product volume administered (ml) Total IV fluid infused 1,200 08/23/24 10:08 [place] [facility]BR Anesthesia Postop Eval I: Summary Notes Anesthesia Complication No 08/23/24 10:08 [place] [facility] Anesthesia Complication Comment: Post-operative progress note Anesthesia: Postop Eval II Evaluation Mental status: Awake Pain Level: 1 nausea: No Vomiting: No
--- NOTE | 2024-08-23 10:51 | PCM.POSTANE2 ---
Anesthesia Postop Eval I Sum Postop Eval Completion status Anesthesia document: Postop Eval 1 completed: Yes Anesthesia Postop Eval I Summary Anesthesia Postop Eval I Summary: Anesthesia Postop Eval I: Assessment Summary Airway patent Yes 08/23/24 10:08 [employer] [email or web address] Spontaneous unlabored Yes 08/23/24 10:08 [email or web address]BR respirations Mental status Awake,Calm 08/23/24 10:08 [employer].SOBR nausea No 08/23/24 10:08 [employer] [employer].SOBR Vomiting No 08/23/24 10:08 [employer] [email or web address].SOBR Anesthesia Postop Eval I: Fluid Summary Crystalloid volume administer 1,200 08/23/24 10:08 [employer].SOBR (ml) Colloids volume administered ( ml) Blood Product volume administered (ml) Total IV fluid infused 1,200 08/23/24 10:08 [employer] [email or web address].SOBR Anesthesia Postop Eval I: Summary Notes Anesthesia Complication No 08/23/24 10:08 [employer] [email or web address].SOBR Anesthesia Complication Comment: Post-operative progress note Anesthesia: Postop Eval II Evaluation Mental status: Awake Pain Level: 1 nausea: No Vomiting: No
[2024-08-23] MEDS: Aspirin 81 MG TAB.CHEW PO ×2 (12:11→21:05)
[2024-08-23] MEDS: Senna/Docusate Sodium 1 Tablet 2 TABLET PO ×2 (12:11→21:05)
--- NOTE | 2024-08-23 13:34 | PN.HOSP_ITS ---
Reason for Visit Reason for Visit: Diagnoses Encounter for other preprocedural examination (08/23/24) Subjective Subjective Consult request by Dr. Haji for postoperative medical management. Is a 74-year-old male who underwent a left total knee replacement. Currently feeling fine at this time. Objective Data Objective Data Vital Signs: Vital Signs Temp Pulse Resp BP Pulse Ox O2 Del Method O2 Flow Rate 36.6 C 85 16 107/61 97 Nasal Cannula 3 08/23/24 13:15 08/23/24 13:15 08/23/24 13:15 08/23/24 13:15 08/23/24 13:15 08/23/24 13:15 08/23/24 13:15 FiO2 97 08/23/24 11:15 Oxygen Flow Rate (L/min) 3 Oxygen Delivery Method Nasal Cannula Weight: 102.2 kg Body Mass Index (BMI) 30.5 Intake & Output: Intake and Output for Last 24 Hours 08/21/24 08/22/24 08/23/24 23:59 23:59 23:59 Intake Total 2127.08 / 2127.08 Output Total 250 / 250 Balance 1877.08 / 1877.08 Lab / Micro Data 07/29/24 12:34 07/29/24 12:34 Labs: Laboratory Results - last 24 hr 08/23/24 06:15: POC Glucose 91 Micro: Microbiology 07/29/24 12:34 Swab (Method) Nasal Screen MRSA/MSSA - Final Radiography Diagnostic Testing: Radiology Impression Knee X-Ray 08/23/24 10:18 IMPRESSION: Status post total knee arthroplasty. No complications evident. Reading Location: [place] [address] Physical Exam Const alert and no apparent distress HEENT head/scalp atraumatic and moist oral mucous membranes Resp normal respiratory effort, no retractions, no use of accessory muscles and clear to auscultation bilaterally Cardio regular rate, regular rhythm, S1 normal heart sound and S2 normal heart sound GI normal to inspection, nondistended, normoactive bowel sounds, soft to palpation, non-tender and non-distended Extremity normal to inspection Assessment & Plan Assessment/Plan (1) Liver fibrosis: PLAN: Plan Status post left total knee replacement: Management, VTE prophylaxis per orthopedics. Hypertension: Stable: Continue with lisinopril. No active medical issues at present. Medically stable from discharge from my perspective. The hospitalist service will follow peripherally. If acute medical issues do arise or if there is medical questions, please reach out. Charges/Coding Visit Charges Inpatient E&M: 11086 Subs Hosp L2
[2024-08-23] MEDS: Cefazolin 1 GM/50 ML BAG IV ×2 (16:17→23:43)
[2024-08-23] MEDS: Ensure Surgery 237 ML LIQUID PO (16:21)
[2024-08-24 03:47] VITALS: BP 133/71; PULSE 87; RESP 16; TEMP 36.4; O2SAT 96
[2024-08-24] MEDS: Famotidine 20 MG Tablet PO (05:06)
[2024-08-24] MEDS: Acetaminophen 500 MG Tablet 1000 MG PO ×3 (05:06→21:48)
[2024-08-24 07:19] LABS: Hematocrit 42.4 % (40-54); Hemoglobin 14.4 g/dL (13.0-16.5); Mean Corpuscular Hgb 29.1 pg (27.0-32.0); Mean Corpuscular Volume 85.7 fL (80-94); Platelet Count 168 K/mm3 (150-450); RBC Distribution Width CV 13.3 % (11.6-14.6); RBC Distribution Width SD 41.1 fl (35.1-43.9); Red Blood Count 4.95 M/mm3 (4.6-6.2); White Blood Count 18.2 K/mm3 (4.4-11.0)
[2024-08-24 07:44] LABS: Anion Gap 11 (5-15); BUN 19 mg/dL (4-19); BUN/Creat Ratio 20.9 RATIO (10-20); Carbon Dioxide 21.7 mmol/L (21.0-32.0); Chloride 101 mmol/L (98-108); EST Glomerular Filtration Rate 91 (>60); Estimated Creatinine Clearance 91.76 ml/min (50-250); Glucose 151 mg/dL (70-99); Potassium 4.7 mmol/L (3.3-5.1); Sodium Level 134 mmol/L (133-145)
[2024-08-24 07:50] VITALS: BP 129/70; PULSE 71; RESP 16; TEMP 36.8; O2SAT 98
[2024-08-24] MEDS: Ensure Surgery 237 ML LIQUID PO (07:54)
[2024-08-24] MEDS: Aspirin 81 MG TAB.CHEW PO ×2 (07:55→21:48)
[2024-08-24] MEDS: Senna/Docusate Sodium 1 Tablet 2 TABLET PO ×2 (07:55→21:48)
[2024-08-24 08:19] VITALS: O2SAT 98
--- NOTE | 2024-08-24 09:00 | PCM.PN.ORT ---
Subjective Subjective Patient is sitting comfortably. Patient has been up and working with physical therapy. Patient states that he has done really well with physical therapy. Patient states that he feels he is doing great and feels an improvement already. Patient states that this point his pain is very well-controlled. Patient denies any nausea, vomiting, dizziness. Patient denies any fevers, chills, signs of infection. Patient denies any shortness of breath, chest pain, calf pain. Patient denies any adverse events overnight. Patient states at this point he is interested in going to a rehab facility as him and his family have some safety concerns with living alone and having severe visual impairments due to macular degeneration. Objective Data Objective Data Vital Signs: Vital Signs Temp Pulse Resp BP Pulse Ox O2 Del Method O2 Flow Rate 98.2 F 71 16 129/70 H 98 Room Air 2 08/24/24 07:50 08/24/24 07:50 08/24/24 07:50 08/24/24 07:50 08/24/24 08:19 08/24/24 08:19 08/23/24 16:21 FiO2 97 08/23/24 11:15 Oxygen Flow Rate (L/min) 2 Oxygen Delivery Method Room Air Weight: 102.2 kg Body Mass Index (BMI) 30.5 Intake & Output: Intake and Output for Last 24 Hours 08/22/24 08/23/24 08/24/24 23:59 23:59 23:59 Intake Total 3975.00 / 3975.00 50 / 50 Output Total 2049 / 2049 Balance 1925.00 / 1925.00 50 / 50 Lab / Micro Data 08/24/24 06:58 08/24/24 06:58 Labs: Laboratory Results - last 24 hr 08/24/24 06:58: WBC 18.2 H, RBC 4.95, Hgb 14.4, Hct 42.4, MCV 85.7, MCH 29.1, MCHC 34.0, RDW Std Deviation 41.1, RDW Coeff of [place] 13.3, Plt Count 168, MPV 10.0, Sodium 134, Potassium 4.7, Chloride 101, Carbon Dioxide 21.7, Anion Gap 11, BUN 19, Creatinine 0.90, Estim Creat Clear Calc 91.76, Est GFR (MDRD) Non-Af 91, BUN/Creatinine Ratio 20.9 H, Glucose 151 H, Calcium 9.0 Micro: Microbiology 07/29/24 12:34 Swab (Method) Nasal Screen MRSA/MSSA - Final Radiography Diagnostic Testing: Radiology Impression Knee X-Ray 08/23/24 10:18 IMPRESSION: Status post total knee arthroplasty. No complications evident. Reading Location: [place] [address] Physical Exam Narrative SALVATORE hose in place bilaterally SCDs in place bilaterally Dressing is with quarter size bloody drainage on the distal one third of dressing. Dorsiflexion plantarflexion performed actively without pain or restriction Sensation intact to light touch. Neurovascularly intact overall Negative Homans bilaterally Const alert, oriented x3 and no apparent distress Assessment & Plan Assessment/Plan (1) Status post total left knee replacement: PLAN: Status post left total knee arthroplasty day 1 1. DVT prophylaxis: Patient will be on aspirin 81 mg twice daily for 4 weeks postoperatively. Patient will be wearing SALVATORE hose for 2 weeks postoperatively. Patient was educated can remove SALVATORE hose at night for comfort. 2. Pain medications: Patient was instructed to take Tylenol 1000 mg every 8 hours istaxp-lig-fuonw taking no more than 3000 mg in 24 hours. Patient will be on meloxicam for 30 days postoperatively. Patient will also be taking oxycodone as needed for pain control. OARRS report was reviewed today. Risk of abuse potential was discussed and reviewed. Patient was advised not to drive motor vehicle or operate heavy equipment while taking narcotic pain medication. Patient voiced understanding. 3. Constipation: Patient was instructed to take senna as instructed until first bowel movement to decrease risk of impaction following surgery. Patient was educated if she has not had a bowel movement in 3 days to call our office for reevaluation. 4. Physical therapy: Patient will be working with physical therapy being weightbearing as tolerated with a walker. Patient does have outpatient physical therapy scheduled for . 5. H&H: 14.4/42.4. Vitals are stable and patient is currently asymptomatic. Hemoglobin above 10 so do not need to start anemia protocol at this time. 6. Reactive leukocytosis: White blood cell count is currently 18.2. Patient did receive intraoperative Decadron. Vitals are stable and afebrile. 7. Patient does have macular degeneration which causes severe vision impairment. 8. Incentive spirometer: Patient was encouraged to use incentive spirometer every hour that he is awake for the first week to exercise lung and decrease risk postoperative lung infection. 9. Patient is to follow-up per postoperative instructions. 10. Appreciate recommendations from medicine for further treatment and management of patient. 11. Appreciate recommendations from case management for safe and proper discharge of patient. 12. Patient will have a follow-up appointment in 2 weeks with our office. 13. Disposition: At this time we will plan to watch patient states that do to his vision impairment due to his macular degeneration he would like to go to a rehab facility because he has safety concerns with going home as he lives alone. Case management has been involved in this and we will start the process of seeing if the rehab facility gets approved by his insurance. Patient has done well with physical therapy up to this point. Patient will be weightbearing as tolerated with a walker with physical therapy. Patient has outpatient physical therapy scheduled at this point. Patient has a follow-up scheduled with our office in 2 weeks. If rehab does not get approved by patient's insurance we will have to discuss ways to make patient and his family feel safe with going home. Patient was encouraged to call with any questions, concerns, new problems. All questions were answered to best my ability.
--- NOTE | 2024-08-24 09:35 | DCINST_ITS ---
Discharge Instructions Diet Discharge Diet: No restrictions DC O2, CPAP, BIPAP needs Home O2 Discharge instructions: No Dressing / Incision Discharge Activity: Use Walker (Weightbearing as tolerated with walker.) Weight Bearing Status: Weight bearing as tolerated (With walker.) Keep extremity elevated above heart level: Left Leg Dressing / Incision Call your doctor if your incision/area has: Continuous Slow Oozing, Sudden Increased Bleeding, Increased Pain/ Swelling, Increased Redness, Foul Smelling Discharge and Swelling at the incision site Call your doctor if you observe: Fever of 101 or Higher, Coldness, Increased Pain, Numbness or Tingling, Change in Color, Inability to urinate, Inability to have a bowel movement, Using more than 1 pad per hour, Shortness of breath, Dizziness, Fainting spells, Swelling in the ankles, Chest pain, Increased palpitations (irregular heartbeat), Calf discomfort and Uncontrolled pain Remove Dressing in: 5 days (Okay to remove dressing 08/28/2024.) Additional Dressing/Incision Instructions:: Patient was educated he can get dressing wet on postoperative day 1. Patient can remove dressing on postoperative day 5. Patient was advised to not do any soaking, submerging for 6 weeks postoperatively. Patient was educated to not do any lotions, salves, oils over incision for 6 weeks postoperatively. OARRS report was reviewed by myself today. Patient was educated not to operate motor vehicle or machinery while taking narcotic pain medications. Follow Up Care Test Results: Test results from this visit will be discussed in further detail at your follow- up appointment, if applicable. Discharge Plan Admission Admit Date/Time: 08/23/24 06:52 Attending Provider: Farshad Haji Primary Care Provider: Ja Chamorro Consulting Providers: Jorge L Stone Discharge Orders/Prescriptions Prescriptions: No Action fluticasone propionate 50 mcg/actuation spray,suspension 1 spray intranasal DAILY PRN (Reason: allergy symptoms) Rx Instructions: administer into each nostril metronidazole 0.75 % cream 1 applic topical DAILY omeprazole 40 mg capsule,delayed release(DR/EC) 40 mg PO DAILY lisinopril 10 mg tablet 10 mg PO DAILY hydrocortisone 2.5 % cream 1 applic topical BID PRN (Reason: rash) PreserVision AREDS-2 250-90-40-1 mg tablet,chewable 1 tab PO QAM AND QPM vitamin E mixed 400 unit tablet 800 unit PO DAILY cholecalciferol (vitamin D3) [Vitamin D3] 50 mcg (2,000 unit) capsule 50 mcg PO DAILY Referrals / Follow Up: Ja Chamorro MD [Primary Care Provider] -
[2024-08-24] MEDS: oxyCODONE 5 MG Tablet PO (11:37)
[2024-08-24] MEDS: proMETHazine 25 MG Tablet 12.5 MG PO ×2 (11:38→21:52)
[2024-08-24 11:41] VITALS: BP 141/65; PULSE 92; RESP 16; TEMP 36.4; O2SAT 97
--- NOTE | 2024-08-24 11:45 | CASEMGMT ---
Met with patient to complete CAREY form. CAREY form and its content were verbally explained and patient's questions were answered to the best of my ability.? Patient voiced understanding and signed CAREY form.? Patient provided a copy of signed CAREY form and original placed in patient's chart.? Patient had no further questions. Inés Mejia, Discharge Planning Asst
--- NOTE | 2024-08-24 12:29 | CASEMGMT ---
Social Work- SW met with pt to complete SDOH assessment and discuss discharge planning. Pt cited transportation as a challenge, as pt niece is primary source of transportation and she works. Pt has recently used hospital van. SW provided transportation resources. Pt reports no other needs at this time. SW updated pt that precert has been started. SW will update with determination of authorization as it becomes available. Pt agreeable. Plan: TCU; pend precert IDRIS Chambers
--- NOTE | 2024-08-24 13:22 | CASEMGMT ---
DANIEL CHILDS Assessment: Face to Face with pt for initial transition planning/care coordination assessment. DANIEL CHILDS introduced self and role at [facility], pt voices understanding and consents to assessment. Pt is A&O x4 and answers all questions appropriately at this time. Pt sitting up in chair in no distress. Care providers, pharmacy, and demographics verified/updated. Admitting Dx: L TKA Strata Score: 1 PCP:Ashtyn Specialists:monty Haji; FRANCE Faustin Preferred Pharmacy: [facility] Insurance: [employer] [facility] Prescription Benefit: yes LNOK: [place], niece; Tosin [place], sister Living Arrangements: Pt lives alone in a single story home with 2 steps to enter without a rail. Pt reports typically he is I in ADL/IADLs. Transportation: Pt stopped driving in March due to macular degeneration. Pt uses [facility] van. DME:[facility], [facility] HHC/SNF: Denies hx of Pt has already spoken with SW regarding SNF. Pt states no further concerns/needs. CM to follow. Advised pt to ask CM if any further questions/concerns/needs arise, voices understanding. Pt Goal: [facility] TCU Plan: [facility] TCU pending miguel angel Lucio RN, CM
[2024-08-24 16:43] VITALS: BP 123/69; PULSE 77; RESP 16; TEMP 36.9; O2SAT 97
[2024-08-24] MEDS: 0.9% Saline Lock 10 ML Syringe IV (16:51)
[2024-08-24] MEDS: Ondansetron 4 MG/2 ML Vial IV (16:51)
--- NOTE | 2024-08-24 17:09 | CASEMGMT ---
Social Work- SW met with pt to update that precert was denied. SW informed that SW notified physician; if physician feels it is appropriate to appeal, they will appeal. SW provided education on OP vs HHC. SW will follow up with pt at a later time after it is determined if an appeal will be started. ADAMARIS called pt niece and left a voicemail regarding denial as well. IDRIS Chambers
[2024-08-24 21:46] VITALS: BP 110/67; PULSE 84; RESP 16; TEMP 36.6; O2SAT 95
[2024-08-25 03:25] VITALS: BP 112/73; PULSE 79; RESP 16; TEMP 36.6; O2SAT 98
[2024-08-25 03:46] VITALS: BP 119/70; PULSE 79; RESP 16; TEMP 36.5; O2SAT 99
[2024-08-25] MEDS: oxyCODONE 5 MG Tablet PO ×2 (03:49→10:33)
[2024-08-25] MEDS: Famotidine 20 MG Tablet PO (03:49)
[2024-08-25] MEDS: Acetaminophen 500 MG Tablet 1000 MG PO (05:06)
[2024-08-25] MEDS: Aspirin 81 MG TAB.CHEW PO (08:32)
[2024-08-25] MEDS: Meloxicam 7.5 MG Tablet PO (08:33)
[2024-08-25] MEDS: Senna/Docusate Sodium 1 Tablet 2 TABLET PO (08:33)
[2024-08-25 09:42] VITALS: BP 113/75; PULSE 84; RESP 16; TEMP 36.6; O2SAT 98
--- NOTE | 2024-08-25 10:13 | CASEMGMT ---
Social Work SW spoke with PA and peer to peer will not be completed. [facility] in TCU notified that pt will not be coming to TCU. RNCM made aware and will follow up with pt for continued discharge planning. IDRIS Carpenter
--- NOTE | 2024-08-25 10:15 | CASEMGMT ---
Addendum entered by Taylor Esteves 08/25/24 10:48: [facility] is unable to take pt on Friday. DANIEL CHILDS into pt room, pt made aware of situation. Pt states his sister may be able to take him Friday. Pt called sister, she is available. TC back to [facility] and visit scheduled at 1:30pm on Friday. Faxed order. Per Alesia, they will set up future appts with the [facility]. Pt aware and information placed on dc information. Original Note: Received notification that a peer to peer will not be completed. DANIEL CHILDS into pt room to discuss dc planning. Pt sitting up in chair. Pt aware that a peer to peer will not be pursued. Pt states he feels safe to dc home. He states he has an appt tomorrow with Chelsy Snow for therapy. Pt states he does not have transportation for therapy. Discussed the [facility], pt states he used last week to go to Dr. Haji's appt. TC to [facility], they will transport for a dr appt to 's office but not therapy. Pt asked to call his niece to discuss. TC to pt niece, she states she works tomorrow and Friday and is unable to transport pt. Discussed using the [facility] with going to [facility] for therapy, pt agreeable to this. TC to [facility], received open times this week. TC to [facility], the times do not match up with appts available. TC back to [facility], they will check with payroll supervisor to see if driver/guide can work over on Friday to accomodate appt. Will await decision.
--- NOTE | 2024-08-25 10:59 | PN.ORTHO_ITS ---
Subjective Subjective The patient was sitting in bedside chair upon examination. Patient denies any chest pain, shortness of breath, dizziness, lightheadedness, nausea or vomiting, or calf pain. Pain is controlled on medications. No adverse overnight events. Patient overall is doing very well today. Patient has walked 180 feet yesterday and today 400 feet. Patient was declined discharge to any skilled facility or rehab. Care management team is currently on board and has set up outpatient physical therapy with use of the hospital transportation system. Patient is in agreements with going home and is comfortable. He would like his medications E scribed to [facility] pharmacy. Objective Data Objective Data Vital Signs: Vital Signs Temp Pulse Resp BP Pulse Ox O2 Del Method O2 Flow Rate 97.9 F 84 16 113/75 98 Room Air 2 08/25/24 09:42 08/25/24 09:42 08/25/24 09:42 08/25/24 09:42 08/25/24 09:42 08/25/24 09:42 08/23/24 16:21 FiO2 97 08/23/24 11:15 Oxygen Flow Rate (L/min) 2 Oxygen Delivery Method Room Air Weight: 102.2 kg Body Mass Index (BMI) 30.5 Intake & Output: Intake and Output for Last 24 Hours 08/23/24 08/24/24 08/25/24 23:59 23:59 23:59 Intake Total 3975.00 / 3975.00 650 / 650 760 / 760 Output Total 2049 / 2049 Balance 1925.00 / 1925.00 650 / 650 760 / 760 Lab / Micro Data 08/24/24 06:58 08/24/24 06:58 Micro: Microbiology 07/29/24 12:34 Swab (Method) Nasal Screen MRSA/MSSA - Final Physical Exam Narrative Vital signs stable and afebrile. SCDs and SALVATORE hose are in place bilaterally Patient is able to plantarflex and dorsiflex actively. Sensation is intact to light touch to saphenous, sural, superficial and deep peroneal, and tibial distribution. Dressing has quarter size drainage over the distal one third of the main Mepilex dressing Negative Homans bilaterally, negative signs and symptoms of DVT. Const alert, oriented x3 and no apparent distress Assessment & Plan Assessment/Plan (1) Status post total left knee replacement: PLAN: 1. S/P left robotic assisted total knee arthroplasty POD #1 2. Continue Pain Medications: Tylenol, meloxicam, and oxycodone. Do not take any other nonsteroidal anti-inflammatories while using meloxicam/Mobic. 3. DVT Prophylaxis: Take 81 mg aspirin twice daily for 4 weeks postoperatively for DVT prophylaxis. Patient denies past history of DVT or pulmonary embolism. Patient will continue with SALVATORE hose for 2 weeks postoperatively 4. PT/OT: Weightbearing as tolerated with walker. Patient has ambulated over 400 feet today with physical therapy. Care management team has established plan with outpatient physical therapist utilizing the hospital transportation van 5. Encouraged Incentive Spirometry 6. Patient is aware of postoperative constipation that can occur from 1-3 days postoperatively. Patient has had 2 bowel movements today. He will now use the stool softener on an as-needed basis. Patient states he would like a prescription sent home with them just in case for any further constipation. 7. Continue postoperative medical treatment per medicine 8. Disposition: Patient orthopedically is doing well today. He is walked over 400 feet with physical therapy today. There was discussion about discharge to custodial facility versus rehab. This was denied as patient is doing very well. Patient is comfortable going home. Care management team has established outpatient physical therapy with use of transportation from the hospital. Patient would like his prescriptions E scribed to [facility]. Patient will continue with his omeprazole at home. Continue above medications as prescribed. He will follow-up per postoperative instructions. Upon discharge he will contact our office with any concerns or questions. I have reviewed the [place] Automated Rx Reporting System (OARRS) report for this patient for refill pattern and other prescriber involvement as part of the appropriate surveillance for the provision of acute and chronic controlled medications. The report was requested and reviewed on the date of this entry and was considered in the prescribing process. This dictation was created using voice recognition software. Phonetic and/or grammatical errors may exist.
--- NOTE | 2024-08-25 11:06 | PCM.DC ---
Discharge Instructions Diet Discharge Diet: No restrictions DC O2, CPAP, BIPAP needs Home O2 Discharge instructions: No Dressing / Incision Discharge Activity: May Not Drive (while taking narcotic pain medications.) May shower in (days): 1 (Please turn dressing away from water. Okay to get wet as long as dressing is intact to skin.) Ice area for (Minutes): 20 (Every 1-2 hours while awake. Please place barrier between the skin and ice pack.) Weight Bearing Status: Weight bearing as tolerated (With walker.) Keep extremity elevated above heart level: Left Leg Dressing / Incision Call your doctor if your incision/area has: Continuous Slow Oozing, Sudden Increased Bleeding, Increased Pain/ Swelling, Increased Redness, Foul Smelling Discharge and Swelling at the incision site Call your doctor if you observe: Fever of 101 or Higher, Coldness, Increased Pain, Numbness or Tingling, Change in Color, Inability to urinate, Inability to have a bowel movement, Using more than 1 pad per hour, Shortness of breath, Dizziness, Fainting spells, Swelling in the ankles, Chest pain, Increased palpitations (irregular heartbeat), Calf discomfort and Uncontrolled pain Remove Dressing in: 3 days (Remove dressing on August 28, 2024) Additional Dressing/Incision Instructions:: Patient was educated he can get dressing wet on postoperative day 1. Patient can remove dressing on postoperative day 5. Patient was advised to not do any soaking, submerging for 6 weeks postoperatively. Patient was educated to not do any lotions, salves, oils over incision for 6 weeks postoperatively. OARRS report was reviewed by myself today. Patient was educated not to operate motor vehicle or machinery while taking narcotic pain medications. Follow Up Care Test Results: Test results from this visit will be discussed in further detail at your follow-up appointment, if applicable. Discharge Plan Admission Admit Date/Time: 08/23/24 06:52 Attending Provider: Farshad Haji Primary Care Provider: Ja Chamorro Consulting Providers: Jorge L Stone Discharge Orders/Prescriptions Prescriptions: New acetaminophen 500 mg Tablet 1,000 mg PO Q8 Qty: 0 0RF Rx Instructions: Do not take more than 3000 mg Tylenol in a 24-hour period. aspirin 81 mg tablet 81 mg PO BID 30 Days Qty: 60 0RF Rx Instructions: Take 81 mg aspirin twice daily with food for 4 weeks postoperatively for DVT prophylaxis. meloxicam 7.5 mg Tablet 7.5 mg PO BID 30 Days Qty: 60 0RF Rx Instructions: Do not take any other nonsteroidal anti-inflammatories while using meloxicam/Mobic. oxycodone 5 mg Tablet 5 - 10 mg PO Q4H PRN PRN (Reason: as needed for pain) 7 Days Qty: 42 0RF sennosides-docusate sodium [Stimulant Laxative Plus] 8.6-50 mg Tablet 2 tab PO BID 3 Days Qty: 12 0RF Rx Instructions: Take as needed for constipation Continued fluticasone propionate 50 mcg/actuation spray,suspension 1 spray intranasal DAILY PRN (Reason: allergy symptoms) Rx Instructions: administer into each nostril metronidazole 0.75 % cream 1 applic topical DAILY omeprazole 40 mg capsule,delayed release(DR/EC) 40 mg PO DAILY lisinopril 10 mg tablet 10 mg PO DAILY hydrocortisone 2.5 % cream 1 applic topical BID PRN (Reason: rash) PreserVision AREDS-2 250-90-40-1 mg tablet,chewable 1 tab PO QAM AND QPM vitamin E mixed 400 unit tablet 800 unit PO DAILY cholecalciferol (vitamin D3) [Vitamin D3] 50 mcg (2,000 unit) capsule 50 mcg PO DAILY Referrals / Follow Up: Ja Chamorro MD [Primary Care Provider] - Walter Klein PA-C [Med Staff - [facility]] - 09/06/24 2:15 pm Disposition Disposition (needs filled in before D/C Order can be placed): Home, Self Care
[2024-08-25] MEDS: proMETHazine 25 MG Tablet 12.5 MG PO (11:43)
== END 2024-08-25 13:47 | disposition home or self-care (01) ==
LOC: SDC 10:23 → MS3 10:23
PROVIDERS: Admitting Provider Specialist; PCP Family Medicine; Referring Provider Specialist; Visit Provider Specialist
PROC: 0SRD0JZ Replacement of Left Knee Joint with Synthetic Substitute, Open Approach (ICD-10-PCS; CPT 27447; principal; 2024-08-23 07:00)
DX: M17.12 Unilateral primary osteoarthritis, left knee (principal); Z87.891 Personal history of nicotine dependence; R03.0 Elevated blood-pressure reading, without diagnosis of hypertension; K74.00 Hepatic fibrosis, unspecified; H35.30 Unspecified macular degeneration; Z79.82 Long term (current) use of aspirin; Z79.899 Other long term (current) drug therapy; E66.9 Obesity, unspecified; Z68.30 Body mass index [BMI] 30.0-30.9, adult
CPT/HCPCS: 27447; 01402; S2900; 36415; 73560; 80048; 82040; 82962; 83735; 85025; 85027; 87081; 93005; 94668; 96361; 96365; 96366; 96375; 97110; 97162; 97166; 97530; 97535; 99221; C1776; A4216; G0378; J2405; J3475

== ENCOUNTER 2024-09-10 09:00 | Outpatient (RCR) | payer MEDICARE, SELFPAY ==
--- NOTE | 2024-08-27 14:16 | HP.PTEVAL ---
Patient's Visit Information Visit Information Visit Information: CELY MCCALL is a 74 year old M referred to Physical Therapy by Prasanth Klein PA-C with a diagnosis of s/p L TKA 08/23. Date of Evaluation: 08/27/24 Physical Therapist: Jorge L Aguilar, JEFFT, OCS, CSCS Visit Plan Frequency: 3x /Week Duration: 4-6 Weeks Plan: 3x/weeek for 3-6 weeks for: IE HEP: reviewed ex of SLR, LAQ, HS, quad set, use ice machine. Wh walker for off pressure and balance as needed. patella mobs and A/PROM L knee ex, Mat to stand strength and progress HEP ELIN, stretch HS and quad, gait training and stair training. ice as needed. Subjective Subjective: 08/23/24 L TKA as it was worn out. Hurt for 5 yrs. Went well and stayed one night in hospital. Went home next day. Lives alone. Getting around with walker now OK. Has a few steps and they are no problem in and out and using R LE on one step. with walker on each step. basic ADLs: Dresses self I, stockings have not been off yet, bandaged. In them for another week. HEP: LAQ, marching sitting, SLR, a couple times per day. Exercised prior. 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 Mows on rider. Not lately, nephew will do it. Exercises stretches in am for neck. Walks without walker some at home. Not overly active due to eye sight. Pain L knee: Pain Intensity (Out of 10): 1 Pain Intensity Range: 0 and 3 Comment: when on it only Objective Objective: B compression garments on, L knee dressed and appears dry now, no signs of excessive redness heat or infection. AROM L knee-2 to 90 today and l is 0-125. strength quad 18# L and HS 20# girth is about symmetrical with opposite side but bruising apparent medial distal area of upper leg approriately. Good ankle aROM B, hips move WNL B, HS mild tight at -25 90/90 test B. quad not tested. TUG is 18 seconds Walking with walkr with decent L knee flexion and heel strike and no obvious antalgia today, Ambulates For FGA without AD well and slightly antalgic L. trasnfers chair without UE, bed I. reviewed ex of SLR, LAQ, HS, quad set, use ice machine. Wh walker for off pressure and balance as needed. Balance/Special Test Scores Functional Gait Assessment Score: 22 % Disability: 26.6700 WOMAC Total Score: 47 WOMAC Percentatge: 51.0500 Goals Goal 1:: Sleep without waking at night due to discomfort Goal Time Frame: 2-4 Weeks Goal 2:: AROM L knee 0-115 to facilitate mobility Goal Time Frame: 4-6 Weeks Goal 3:: Pt feel discomfort and funciton 90% back to normal and 1/10 at worst Goal Time Frame: 4-6 Weeks Goal 4:: Ambulate community without need for wh walker safely includingf steps reciprocally with one rail Goal Time Frame: 4-6 Weeks Goal 5:: I appropriate HEP for LE strength and general strength Goal Time Frame: 4-6 Weeks Rehabilitation Potential Physical Therapy Diagnosis: L knee stiffness weakness and discomfort limiting funciton. Rehabilitation Potential: Good Anticipated Interventions Patient/Client Instruction: Educate patient on: Condition and Plan of Care For the Purpose of:: To decrease pain, To increase ROM, To improve nutrient delivery to tissue, To improve muscle performance and motor function, To increase tolerance to activity/condition/position and To improve ability of physical actions for home/community/work/leisure Therapeutic Exercise to Include: Strength training, Postural training, Flexibilty training, Gait and locomotor training, Passive ROM and Active ROM For the Purpose of:: To decrease pain, To increase ROM, To improve nutrient delivery to tissue, To improve muscle performance and motor function, To increase tolerance to activity/condition/position and To improve gait and locomotor functions Manual Therapy Techniques to Include: Mobilization, Passive ROM and Soft tissue mobilization For the Purpose of:: To decrease pain, To increase ROM, To improve nutrient delivery to tissue, To increase tolerance to activity/condition/position, To improve ability of physical actions for home/community/work/leisure and To improve gait and locomotor functions Cryotherapy (ice pack, ice massage): Yes For the Purpose of:: To increase ROM, To improve nutrient delivery to tissue, To improve muscle performance and motor function, To increase tolerance to activity/condition/position and To improve gait and locomotor functions Text: Thank you for the opportunity to evaluate your patient. For Medicare and Medicare HMO plans, please review the plan of care and approve it. It will need to be FAXED BACK to us at [phone] for Medicare purposes. For Medicare only, by signing this I certify the plan of care. Please let me know if there are questions or concerns regarding this plan of care. Physician Signature: Date:
--- NOTE | 2024-10-20 15:46 | HP.PTDCNRP_ITS ---
Patient Information Patient Information: CELY MCCALL was seen in my office for initial evaluation on 08/27/24. The following Plan of Care was established for this patient: POC Established Initial Frequency: 3x /Week Initial Duration: 4-6 Weeks Anticipated Interventions Patient/Client Instruction: Educate patient on: Condition and Plan of Care For the Purpose of:: To decrease pain, To increase ROM, To improve nutrient delivery to tissue, To improve muscle performance and motor function, To increase tolerance to activity/condition/position and To improve ability of physical actions for home/community/work/leisure Therapeutic Exercise to Include: Strength training, Postural training, Flexibilty training, Gait and locomotor training, Passive ROM and Active ROM For the Purpose of:: To decrease pain, To increase ROM, To improve nutrient delivery to tissue, To improve muscle performance and motor function, To i ncrease tolerance to activity/condition/position and To improve gait and locomotor functions Manual Therapy Techniques to Include: Mobilization, Passive ROM and Soft tissue mobilization For the Purpose of:: To decrease pain, To increase ROM, To improve nutrient delivery to tissue, To increase tolerance to activity/condition/position, To improve ability of physical actions for home/community/work/leisure and To improve gait and locomotor functions Cryotherapy (ice pack, ice massage): Yes For the Purpose of:: To increase ROM, To improve nutrient delivery to tissue, To improve muscle performance and motor function, To increase tolerance to activity/condition/position and To improve gait and locomotor functions Last Seen Last Seen: This patient was last seen in our office 09/10/24. Pertinent comments regarding their Physical therapy will appear below: Pt seen 6 visits of POC but did not schedule or attend any further visits. At this point, it has been over 5 weeks and I will discontinue from my care. At this point I will be discontinuing this patient from physical therapy. I would be happy to see this patient again in the future if found appropriate by the physician. Thank you! Jorge L Aguilar, DPT, OCS, CSCS Balance/Gait/Functional tests Balance/Special Test Scores Functional Gait Assessment Score: 22 % Disability: 26.6700 WOMAC Total Score: 47 WOMAC Percentage: 51.0500
== END 2024-09-10 19:00 | disposition home or self-care (01) ==
LOC: PT 09:00
PROVIDERS: PCP Family Medicine; Referring Provider Physician Assistant Surgical; Visit Provider Physician Assistant Surgical
DX: Z96.652 Presence of left artificial knee joint (principal)
CPT/HCPCS: 97110; 97161